=== PATIENT | male | born 1955 | race Caucasian/White ===

== ENCOUNTER 2019-05-27 06:00 | Outpatient (RCR) | payer MEDICARE, OTHER, SELFPAY | END 2019-06-26 00:01 | LOC: SPT 06:00 | PROVIDERS: Family Provider Internal Medicine; Visit Provider Internal Medicine | DX: R29.898 Other symptoms and signs involving the musculoskeletal system (principal); R26.89 Other abnormalities of gait and mobility | CPT/HCPCS: 97110 ×4; 97112; 97530 ×3 ==

== ENCOUNTER 2019-06-27 06:00 | Outpatient (RCR) | payer MEDICARE, OTHER, SELFPAY | END 2019-07-27 23:59 | disposition home or self-care (01) | LOC: SPT 06:00 | PROVIDERS: Family Provider Internal Medicine; PCP Internal Medicine; Visit Provider Internal Medicine | DX: R29.898 Other symptoms and signs involving the musculoskeletal system (principal); R26.89 Other abnormalities of gait and mobility | CPT/HCPCS: 97110; 97530 ==

== ENCOUNTER 2019-07-02 05:58 | Day surgery (SDC) | payer MEDICARE, OTHER, MEDICAID, SELFPAY ==
[2019-06-30 12:48] VITALS: BMI 39.5
--- NOTE | 2019-07-02 05:47 | XRR_ITS ---
PROCEDURE INFORMATION: Exam: XR Chest, 1 View Exam date and time: 07/02/2019 6:36 AM Age: 63 years old Clinical indication: Device placement; Other: Dialysis catheter removal; Prior surgery; Surgery type: Dialysis catheter, port TECHNIQUE: Imaging protocol: XR of the chest Views: 1 view. COMPARISON: CR Chest 1 [place] [id number] 11/14/2017 4:04 PM FINDINGS: Tubes, catheters and devices: Dialysis catheter via the left internal jugular approach with the tip in the region of the caval atrial junction. Lungs: Lungs are well aerated without a focal area of consolidation. Pleural space: Unremarkable. No pleural effusion. No pneumothorax. Heart/Mediastinum: The cardiac silhouette appears enlarged, some of which is magnification related to the AP projection. Bones/joints: Unremarkable. XR/XR chest 1V portable [id number] IMPRESSION: Lungs are well aerated without a focal area of consolidation.
--- NOTE | 2019-07-02 06:34 | P.HP_ITS ---
Providers/Chief Complaint Primary Care Provider: Asad Gao Chief Complaint: dialysis catheter History of Present Illness Bigg Rivera is a 63 year old male who presents today electively for planned split Navneet dialysis catheter removal which was placed in September 2017. He is currently being dialyzed through a successful right upper extremity fistula and this catheter is no longer required, therefore nephrology is requested that we remove the tunneled dialysis catheter. It is also note that he has some erythema and an abrasion over the pretibial region of his left lower extremity. We will direct care provider vancomycin as are surgical prophylaxis. He is scheduled to present back to dialysis clinic at 10 AM this morning. We will request a nephrology service recommended long-term antibiotic therapy for this. Review of Systems Eyes: Denies: change in vision ENMT: Denies: throat pain Card: Denies: chest pain Resp: Reports: shortness of breath (With exertion) GI: Denies: abdominal pain Skin/Breast: Reports: redness (Left lower extremity for the past week with what appears to be an abrasion) Neuro: Reports: numbness in extremities (Feet bilaterally); Denies: headache or weakness in extremities Medications/Allergies Home Medications Medication Instructions Recorded Confirmed Last Taken Type apixaban [Eliquis] 5 mg PO BID 06/30/19 07/02/19 2 Days Ago History ~06/30/19 aspirin [Aspir-81] 81 mg PO DAILY 06/30/19 07/02/19 2 Days Ago History ~06/30/19 atorvastatin 40 mg PO BEDTIME 06/30/19 07/02/19 1 Day Ago History ~07/01/19 diphenhydramine HCl [Benadryl] 50 mg PO BEDTIME 06/30/19 07/02/19 07/02/19 03:00 History docusate sodium [Colace] 100 mg PO BID 06/30/19 06/30/19 Unknown History duloxetine 40 mg PO DAILY 06/30/19 07/02/19 1 Day Ago History ~07/01/19 ergocalciferol (vitamin D2) 50,000 unit PO DIRECTED 06/30/19 06/30/19 Unknown History folic acid 1 mg PO DAILY 06/30/19 07/02/19 1 Day Ago History ~07/01/19 furosemide 06/30/19 Unknown History gabapentin 06/30/19 06/30/19 Unknown History hydralazine 100 mg PO BID 06/30/19 06/30/19 Unknown History insulin aspart U-100 [Novolog 5 unit SUBCUT TIDWM 06/30/19 06/30/19 Unknown History Flexpen U-100 Insulin] insulin glargine [Lantus Solostar 30 unit SUBCUT BID 06/30/19 06/30/19 Unknown History U-100 Insulin] isosorbide mononitrate 60 mg PO BEDTIME 06/30/19 06/30/19 Unknown History promethazine 25 mg PO Q6H 06/30/19 06/30/19 Unknown History sevelamer carbonate [Renvela] 2,400 mg PO QID 06/30/19 06/30/19 Unknown History temazepam 15 mg PO BEDTIME 06/30/19 06/30/19 Unknown History Allergies Allergy/AdvReac Type Severity Reaction Status Date / Time No Known Allergies Allergy Verified 06/30/19 10:16 PFSH PFSH: Statuses (acute, chronic, etc) shown below reflect problem list status as previously entered and may not be historically accurate Medical History (Updated 07/02/19 @ 06:41 by Geovanni Shields MD) Diabetes mellitus (Acute) Vital Signs Weight: Weight last 48 hrs Weight 260 lb Weight 258 lb Physical Exam Resp: COMMON NORMALS: normal respiratory effort AUSCULTATION: clear to auscultation bilaterally Cardio: COMMON NORMALS: regular rate, regular rhythm and S1 normal heart sound Extremity: GENERAL: Yes AV fistula (Left upper extremity with good bruit) LEFT LOWER EXTREMITY: Yes lower leg (Erythema and eschared abrasion pretibial region left lower extremity with magnus-eschar erythema) A&P Assessment and plan (1) Vascular dialysis catheter in place: Will plan for dialysis catheter removal today. I discussed the details, rationale, and risks with patient and . They wish to proceed. Status: Acute Code(s): Z99.2 - Dependence on renal dialysis (2) End stage renal disease on dialysis: Scheduled for resumption of hemodialysis at 10 AM at the local dialysis center. 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
--- NOTE | 2019-07-02 06:39 | ANES.PREANES ---
Pre-Anesthetic Assessment Pre-Anesthetic Assessment: Height/Weight: Height 1.73 m Weight 117.934 kg Proposed Procedure: Operation Date: 07/02/19 07:00 Proposed Procedures p Split Navneet Catheter Removal(Not Applicable) - Geovanni Shields MD Last intake: Intake Last Liquid Date 07/02/19 Last Liquid Time 03:00 Last Solid Date 07/01/19 Last Solid Time 18:00 Exam: Pre-Anes Outpt Exam: alert, oriented x 3, clear to auscultation bilaterally and regular rate & rhythm Airway: Submandibular: WNL Cervical ROM: WNL MP: 2 Dentition: Full History/ROS: No significant history except as noted Pulmonary: Pulmonary: None reported CV/HEM: CV/HEM: Afib and KS Metabolic: Metabolic: DM and Morbid obesity Anesthetic Plan: ASA status: III Anesthesia: Anesthesia Evaluation and MAC Risk of > 500 ml blood loss (7ml/kg in children): No PFSH Anesthesia PFSH: Medical History (Updated 07/02/19 @ 06:41 by Geovanni Shields MD) Diabetes mellitus (Acute) Data Anesthesia Cardiac Studies: No Data to Display
[2019-07-02 06:45] VITALS: BP 167/77; PULSE 85; RESP 18; TEMP 36.6; O2SAT 97
[2019-07-02] MEDS: sodium chloride 0.9% 1,000 ML 100 ML IV (07:00)
[2019-07-02] MEDS: vancomycin 1,000 MG in sodium chloride 0.9% 250 ML 250 MG IV (07:08)
[2019-07-02 07:25] LABS: Basophils # 0.1 10^3/uL (0.0-0.1); Basophils % 0.7 %; Eosinophils # 0.8 10^3/uL (0.0-0.8); Eosinophils % 5.6 %; Hematocrit 31.9 % (42.0-52.0); Lymphocytes # 1.1 10^3/uL (0.8-4.8); Lymphocytes % 8.1 %; Mean Corpuscular HGB Conc 31.3 g/dL (30.0-36.0); Mean Corpuscular Hemoglobin 33.3 pg (28.0-34.0); Mean Corpuscular Volume 106.3 fL (80-94); Mean Platelet Volume 10.3 fL (7.4-10.4); Monocytes # 0.8 10^3/uL (0.2-0.9); Monocytes % 5.7 %; Neutrophils # 10.7 10^3/uL (1.8-7.7); Neutrophils % 78.8 %; Nucleated Red Blood Cells % 0 %; Platelet Count 228 10^3/cmm (130-400); Red Cell Distribution Width 15.6 % (12.1-15.1); White Blood Count 13.5 10^3/uL (4.0-10.0)
[2019-07-02] MEDS: lidocaine 1% INJ 20 mL INJECTION (07:28)
[2019-07-02 07:29] LABS: INR 1.08 (0.8-1.2)
[2019-07-02 07:34] LABS: Anion Gap 24.9 (5-19); Calcium 9.4 mg/Dl (8.8-10.2); Carbon Dioxide 25 mmol/L (22-29); Chloride 91 mmol/L (98-107); Glomerular Filtration Rate 6.3 mL/min (90-130); Glucose 212 mg/dL (74-106); Potassium 4.9 mmol/L (3.5-5.1); Sodium 136 mmol/L (136-145)
--- NOTE | 2019-07-02 07:35 | P.OP_ITS ---
Operative Report Post-Operative Note: Date of procedure: 07/02/19 Preop Diagnosis: End-stage renal disease Post-op diagnosis: same Procedure Done: Tunneled left subclavian dialysis catheter removal Surgeon: Geovanni Shields Anesthesia: other (1% lidocaine local total of 8 cc) Estimated blood loss (mL): 5 IV fluids (mL): 100 Complications: None Condition: stable Disposition: same day Operative Report: Brief History: 63-year-old gentleman with end-stage renal disease on hemodialysis currently being dialyzed through successful left upper extremity AV fistula. His tunnel dialysis catheter is no longer required and nephrology is requested it be removed. Procedure: The patient was carefully positioned sterilely prepped and draped after induction of IV conscious sedation. 1% lidocaine was infiltrated at the exit point of the tunnelled dialysis catheter. Blunt dissection was then carried out utilizing hemostat to expose the Velcro cuff with subsequent excision of all fibrotic and scar tissue. Utilizing direct in-line traction with direct pressure held in the subclavicula r region at the insertion site, the catheter was removed intact without difficulty. Direct pressure was held in the subclavicular region for greater than 20 minutes with the patient in reverse Trendelenburg position to confirm hemostasis. Sterile pressure dressing was applied. Equal breath sounds bilaterally. They were awakened from IV conscious sedation without difficulty. They were transported to the Outpatient Surgery department in stable condition. 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
[2019-07-02 07:37] LABS: Blood Urea Nitrogen 99 mg/dL (8-23)
[2019-07-02 07:42] VITALS: BP 137/68; PULSE 85; RESP 18; O2SAT 98
[2019-07-02 08:14] VITALS: BP 169/73; PULSE 73; RESP 18; O2SAT 97
== END 2019-07-02 08:41 | disposition home or self-care (01) ==
PROVIDERS: Family Provider Internal Medicine; PCP Internal Medicine; Visit Provider Thoracic Surgery (Cardiothoracic Vascular Surgery)
PROC: (CPT 36815; principal; 2019-07-02 07:00)
DX: E11.22 Type 2 diabetes mellitus with diabetic chronic kidney disease (principal); Z99.2 Dependence on renal dialysis; N18.6 End stage renal disease; Z79.01 Long term (current) use of anticoagulants; Z79.82 Long term (current) use of aspirin; Z79.4 Long term (current) use of insulin; I48.91 Unspecified atrial fibrillation; I25.2 Old myocardial infarction; E66.01 Morbid (severe) obesity due to excess calories; Z68.39 Body mass index [BMI] 39.0-39.9, adult
CPT/HCPCS: 36590; 71045; 80048; 85025; 85610; 96365; J2001; J3370; J7030

== ENCOUNTER 2019-07-28 06:00 | Outpatient (RCR) | payer MEDICARE, OTHER, SELFPAY | END 2019-08-09 23:00 | disposition home or self-care (01) | LOC: SPT 06:00 | PROVIDERS: Family Provider Internal Medicine; PCP Internal Medicine; Visit Provider Internal Medicine | DX: R26.89 Other abnormalities of gait and mobility (principal); R29.898 Other symptoms and signs involving the musculoskeletal system | CPT/HCPCS: 97110; 97530 ==

== ENCOUNTER 2019-09-08 17:04 | Emergency (ER) | payer MEDICARE, OTHER, SELFPAY ==
[2019-09-08 17:05] VITALS: BP 175/96; PULSE 71; RESP 18; TEMP 36.3; O2SAT 98; BMI 39.8
--- NOTE | 2019-09-08 17:22 | ED_ITS ---
HPI - Extremity Problem General: Chief complaint: Extremity Injury, Lower Stated complaint: RIGHT KNEE SWOLLEN S/P FALL Time Seen by Provider: 09/08/19 17:18 History of Present Illness: HPI Narrative: Patient arrived via ambulance complaint of right knee pain. Patient tripped over a cord near his bed and fell directly on his right knee. Was able to stand up next to the bed the few minutes later his knee swelled up. Patient is on blood thinners patient has no complaints of any other problems MD Complaint: extremity swelling Onset (ago): minute(s) Pain Consistency: constant Location: right and knee Severity scale (1-10): 4 Quality: aching Radiation: none Relieving factors: immobilization Exacerbating factors: range of motion Associated symptoms: Reports no associated symptoms; Deny chest pain, fever(s) or rash Review of Systems Const: Denies: fever, chills or body aches Eyes: Denies: change in vision or blurry vision ENMT: Denies: throat pain or nasal congestion Card: Denies: chest pain or shortness of breath on exertion Resp: Denies: shortness of breath, productive cough or non-productive cough GI: Denies: abdominal pain, nausea or vomiting : Denies: difficulty urinating Musc: Reports: extremity pain and joint swelling (Right knee) Skin/Breast: Denies: rash Neuro: Denies: headache Psych: Denies: anxiety or depression Lázaro/Lymph: Denies: easy bruising PFSH ED 2 PFSH: Medical History (Updated 08/11/19 @ 12:05 by Markel Gold DPM) Anemia Atrial fibrillation COPD (chronic obstructive pulmonary disease) Coronary artery disease CVA (cerebral vascular accident) Diabetes mellitus Dyslipidemia Gout Hyperphosphatemia Hypertension Neuropathy Obstructive sleep apnea Pure hypercholesterolemia PVD (peripheral vascular disease) Surgical History (Updated 08/11/19 @ 12:01 by Markel Gold DPM) H/O hernia repair Ventral History of appendectomy Hx of cholecystectomy S/P removal of parathyroid gland Social History Smoking and tobacco status: never smoked Alcohol intake: never Physical Exam Const: COMMON NORMALS: no apparent distress, average body habitus and oriented x3 HENMT: COMMON NORMALS: normocephalic HEAD & SCALP: normal to inspection and normocephalic FACE & SINUS: normal facial exam Eye: COMMON NORMALS: conjunctivae normal GENERAL EYE: normal appearance of both eyes CONJUNCTIVA: Yes conjunctivae normal Neck/C-Spine: COMMON NORMALS: no JVD Chest: COMMONS NORMALS: inspection of chest normal Resp: COMMON NORMALS: normal respiratory effort and clear to auscultation bilaterally AUSCULTATION: clear to auscultation bilaterally Cardio: COMMON NORMALS: no JVD, regular rate and regular rhythm RATE: regular rate RHYTHM: regular rhythm GI: COMMON NORMALS: normal to inspection, nondistended, normoactive bowel sounds Extremity: COMMON NORMALS: normal to inspection RIGHT LOWER EXTREMITY: Yes knee joint (Large amount of swelling and bruising to the anterior aspect of the right knee has range of motion but does have pain with that neurovascular intact) Neuro: COMMON NORMALS: oriented x3 Course Vital Signs: Vital signs: Vital Signs Temperature 97.3 F L 09/08/19 17:05 Pulse Rate 71 09/08/19 17:05 Respiratory Rate 18 09/08/19 17:05 Blood Pressure 175/96 09/08/19 17:05 Pulse Oximetry 98 09/08/19 17:05 Discharge Plan Discharge Prescriptions: No Action vancomycin in 0.9 % sodium chl 1 gram/200 mL piggyback 1 gm IVP Q24H RF: 0 cephalexin 500 mg capsule 500 mg PO BID RF: 0 duloxetine 20 mg capsule,delayed release(DR/EC) 20 mg PO BID 30 Days Qty: 60 RF: 6 gabapentin 300 mg capsule 300 mg PO DAILY 90 Days Qty: 90 RF: 3 Lantus Solostar U-100 Insulin 100 unit/mL (3 mL) insulin pen 30 unit SUBCUT BID Qty: 3 RF: 0 Eliquis 5 mg tablet 5 mg PO BID Qty: 60 RF: 3 atorvastatin 40 mg tablet 40 mg PO BEDTIME RF: 0 aspirin [Aspir-81] 81 mg Tablet,Delayed Release (Dr/Ec) 81 mg PO DAILY RF: 0 isosorbide mononitrate 60 mg tablet extended release 24 hr 60 mg PO BEDTIME RF: 0 temazepam 15 mg capsule 15 mg PO BEDTIME RF: 0 furosemide 80 mg tablet RF: 0 hydralazine 100 mg tablet 100 mg PO BID RF: 0 diphenhydramine HCl [Benadryl] 25 mg Capsule 50 mg PO BEDTIME RF: 0 promethazine 25 mg tablet 25 mg PO Q6H RF: 0 Colace 100 mg Capsule 100 mg PO BID RF: 0 folic acid 1 mg tablet 1 mg PO DAILY RF: 0 ergocalciferol (vitamin D2) 50,000 unit Capsule 50,000 unit PO DIRECTED RF: 0 Novolog Flexpen U-100 Insulin 100 unit/mL (3 mL) insulin pen 5 unit SUBCUT TIDWM RF: 0 Renvela 800 mg tablet 2,400 mg PO QID RF: 0 Coding Level of Care Code ED 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
--- NOTE | 2019-09-08 17:22 | XRR_ITS ---
PROCEDURE INFORMATION: Exam: XR Right Knee Exam date and time: 09/08/2019 5:22 PM Age: 63 years old Clinical indication: Injury or trauma; Fall; Initial encounter; Blunt trauma; Knee; Right TECHNIQUE: Imaging protocol: XR Right knee. Views: 3 views. COMPARISON: No relevant prior studies available. FINDINGS: Bones/joints: There is osteopenia. There is mild chondrocalcinosis compatible with calcium pyrophosphate deposition disease. There is a small knee joint effusion. There are diffuse moderate degenerative changes in the knee. No acute fracture. Soft tissues: There is diffuse subcutaneous edema. There is abundant edema in the subcutaneous fat superficial to the patella and anterior to the knee compatible with contusion/hematoma versus prepatellar bursitis. XR/XR knee RT 3V* [id number] IMPRESSION: 1. There is abundant soft tissue edema. 2. No acute bony abnormality. Degenerative changes are noted.
[2019-09-08 18:22] VITALS: BP 175/94; PULSE 65; RESP 17; O2SAT 98
== END 2019-09-08 18:26 | disposition home or self-care (01) ==
PROVIDERS: Emergency Provider Nurse Practitioner Family; Family Provider Internal Medicine; PCP Internal Medicine
DX: S80.01XA Contusion of right knee, initial encounter (principal); M25.461 Effusion, right knee; I48.91 Unspecified atrial fibrillation; J44.9 Chronic obstructive pulmonary disease, unspecified; I25.10 Atherosclerotic heart disease of native coronary artery without angina pectoris; E11.40 Type 2 diabetes mellitus with diabetic neuropathy, unspecified; E11.51 Type 2 diabetes mellitus with diabetic peripheral angiopathy without gangrene; E78.00 Pure hypercholesterolemia, unspecified; Z79.4 Long term (current) use of insulin; Z79.01 Long term (current) use of anticoagulants; Z79.82 Long term (current) use of aspirin; Z86.73 Personal history of transient ischemic attack (TIA), and cerebral infarction without residual deficits; W01.0XXA Fall on same level from slipping, tripping and stumbling without subsequent striking against object, initial encounter
CPT/HCPCS: 12345; 73562; 99281; 99283

== ENCOUNTER → 2020-05-23 10:30 | Outpatient (BNVA) | payer MEDICARE, OTHER, SELFPAY | PROVIDERS: Family Provider Internal Medicine; PCP Internal Medicine; Visit Provider Internal Medicine | DX: Z20.828 Contact with and (suspected) exposure to other viral communicable diseases (principal); Z11.59 Encounter for screening for other viral diseases | CPT/HCPCS: 87426 ==

== ENCOUNTER 2020-06-15 14:48 | Emergency (ER) | payer MEDICARE, OTHER, SELFPAY ==
[2020-06-15 14:56] VITALS: BP 157/61; PULSE 61; RESP 20; TEMP 36.4; O2SAT 95; BMI 38.0
[2020-06-15 15:11] VITALS: BP 138/54; PULSE 56; RESP 20; O2SAT 94
[2020-06-15 15:14] LABS: Glucose Point of Care 274 mg/dL (70-110)
--- NOTE | 2020-06-15 15:14 | XRR_ITS ---
PROCEDURE INFORMATION: Exam: XR Chest, 1 View Exam date and time: 06/15/2020 3:17 PM Age: 64 years old Clinical indication: Shortness of breath; Additional info: SOB TECHNIQUE: Imaging protocol: XR of the chest Views: 1 view. COMPARISON: CR XR chest 1V portable [id number] 07/02/2019 6:28 AM FINDINGS: Lungs: Unremarkable. No consolidation. Pleural space: Unremarkable. No pleural effusion. No pneumothorax. Heart/Mediastinum: Unremarkable. No cardiomegaly. Bones/joints: Unremarkable. XR/XR chest 1V portable [id number] IMPRESSION: No acute findings.
--- NOTE | 2020-06-15 15:49 | W.ED.AMS ---
HPI - Altered Mental Status General: Chief Complaint: Altered Mental Status Stated Complaint: AMS DURING DIALYSIS Time Seen by Provider: 06/15/20 14:52 Source: patient Mode of arrival: EMS Limitations: no limitations History of Present Illness: HPI narrative: The patient is a 64-year-old male with end-stage renal disease on hemodialysis Wednesdays and Fridays. He says that occasionally during dialysis he gets episodes of altered mental status, hypoglycemia and difficulty breathing. Because of these the dialysis center wants him checked out before his next dialysis session tomorrow. The patient has no complaints today. He has baseline shortness of breath and that is unchanged. He is essentially here for medical clearance for dialysis Review of Systems General: Reports: 10 or more systems reviewed and unremarkable except in HPI and below Const: Denies: fever(s), chills or body aches Eyes: Denies: change in vision or blurry vision ENMT: Denies: throat pain, enlarged tonsils, odynophagia, hoarseness, mouth pain or swelling of lips/tongue Card: Denies: palpitations, irregular heart rhythm, edema or swelling of feet/ankles Resp: Denies: dyspnea, productive cough or non-productive cough GI: Denies: abdominal pain, nausea or vomiting : Denies: flank pain, dysuria, urinary frequency, urinary urgency or urinary hesitancy Musc: Denies: neck pain, back pain or extremity swelling Skin/Breast: Denies: rash, pruritus or erythema Neuro: Denies: headache(s), numbness in extremities or weakness in extremities Endo: Denies: polyuria, polydipsia or tired all the time PFSH ED PFSH: Medical History (Updated 06/15/20 @ 16:24 by Jose Manuel Vo MD, [facility] [place]) Anemia Atrial fibrillation COPD (chronic obstructive pulmonary disease) Coronary artery disease CVA (cerebral vascular accident) Diabetes mellitus Dyslipidemia Gout Hyperphosphatemia Hypertension Neuropathy Obstructive sleep apnea Pure hypercholesterolemia PVD (peripheral vascular disease) Surgical History (Reviewed 06/15/20 @ 15:55 by Jose Manuel Vo MD, [facility] [place]) H/O hernia repair Ventral History of appendectomy Hx of cholecystectomy S/P removal of parathyroid gland Family History (Reviewed 06/15/20 @ 15:55 by Jose Manuel Vo MD, [facility] [place]) Father No problems noted. Other Cancer Diabetes Denies family history of CAD (coronary artery disease) Clotting disorder Dementia Hyperlipidemia Psychiatric illness Chronic kidney disease (CKD) Suicide Anesthesia complication Bleeding disorder Family history of premature coronary artery disease Lung disease Hypertension Stroke Social History (Reviewed 06/15/20 @ 15:55 by Jose Manuel Vo MD, [facility] [place]) Smoking and tobacco status: never smoked Alcohol intake: never History of recent travel: No Physical Exam Const: COMMON NORMALS: no acute distress, average body habitus, patient oriented x3, no limitations, healthy appearing, alert and well nourished HENMT: COMMON NORMALS: normocephalic, atraumatic and moist oral mucous membranes HEAD & SCALP: normocephalic and atraumatic Neck/C-Spine: COMMON NORMALS: no meningeal signs and no JVD Resp: COMMON NORMALS: normal respiratory effort, No retractions, No use of accessory muscles, clear to auscultation bilaterally and percussion normal AUSCULTATION: clear to auscultation bilaterally PERCUSSION: percussion normal Cardio: COMMON NORMALS: no JVD, regular rate, regular rhythm, S1 normal heart sound present, S2 normal heart sound present, No gallops present (Cardio), No clicks present (Cardio), No murmurs present (Cardio), No rub (Cardio) and Peripheral pulses 2+ throughout RATE: regular rate RHYTHM: regular rhythm HEART SOUNDS: S1 normal heart sound present and S2 normal heart sound present PERIPHERAL PULSES: Peripheral pulses 2+ throughout GI: COMMON NORMALS: Normal to inspection, nondistended, normoactive bowel sounds present, Soft to palpation, non-tender, No hepatosplenomegaly present, no masses and no bruits PALPATION: Yes Soft to palpation and Yes No hepatosplenomegaly present Extremity: COMMON NORMALS: normal to inspection, full ROM, capillary refill normal and no calf tenderness GENERAL: Yes edema Neuro: COMMON NORMALS: patient oriented x3 SENSORIUM/ORIENTATION: Yes alert MENINGEAL SIGNS: Yes no meningeal signs Skin: COMMON NORMALS: no rashes or lesions noted, no wounds, turgor normal, no jaundice, no petechiae and no mottling GENERAL SKIN EXAM: no rashes or lesions noted and turgor normal Course Reevaluation(s): Reevaluation #1: Discussed his lab and imaging findings with him. Negative for acute findings. Creatinine is elevated but unremarkable for him, he is due to have dialysis tomorrow. We will discharge him home with no new orders and he is good to have dialysis tomorrow. He voiced understanding and is in agreement with the plan. Time: 16:22 Vital Signs: Vital signs: Vital Signs Temperature 98.5 F 06/15/20 16:32 Pulse Rate 60 06/15/20 16:32 Respiratory Rate 18 06/15/20 16:32 Blood Pressure 183/53 06/15/20 16:32 Pulse Oximetry 96 06/15/20 16:32 MDM - Altered Mental Status MDM Narrative: Medical decision making narrative: 64-year-old male with end-stage renal disease on hemodialysis Wednesdays and Fridays has had a few episodes of altered mental status, difficulty breathing, and hypoglycemia during his dialysis sessions. His next dialysis session is tomorrow and the dialysis staff wanted the patient checked out and cleared prior to dialysis tomorrow. The patient had no symptoms and evaluation was unremarkable in the emergency department. He is discharged home and he can have dialysis tomorrow. Medical Records: Attestation: I reviewed the patient's medical records. Lab Data: Attestation: I reviewed the patient's lab results. Labs: Lab Results 06/15/20 06/15/20 06/15/20 Range/Units 15:09 15:36 15:36 WBC 10.7 H (4.0-10.0) 10^3/ uL RBC 3.26 L (4.1-5.3) 10^6/u L Hgb 10.1 L (11.7-16.6) g/dL Hct 33.3 L (42.0-52.0) % MCV 102.1 H (80-94) fL MCH 31.0 (28.0-34.0) pg MCHC 30.3 (30.0-36.0) g/dL RDW 14.8 (12.1-15.1) % Plt Count 257 (130-400) 10^3/c mm MPV 10.8 H (7.4-10.4) fL Neut % (Auto) 75.8 % Lymph % (Auto) 11.6 % [place] % (Auto) 7.7 % Eos % (Auto) 3.7 % Baso % (Auto) 0.5 % Neut # (Auto) 8.12 H (1.8-7.7) 10^3/u L Lymph # (Auto) 1.3 (0.8-4.8) 10^3/u L [place] # (Auto) 0.8 (0.2-0.9) 10^3/u L Eos # (Auto) 0.4 (0.0-0.8) 10^3/u L Baso # (Auto) 0.1 (0.0-0.1) 10^3/u L Nucleated RBC % (a uto) 0 % Nucleated RBCs # 0.0 /100WBC Sodium 136 (136-145) mmol/L Potassium 4.3 (3.5-5.1) mmol/L Chloride 91 L (98-107) mmol/L Carbon Dioxide 31 H (22-29) mmol/L Anion Gap 18.3 (5-19) BUN 40 H (8-23) mg/dL Creatinine 6.6 H* (0.7-1.2) mg/dL GFR Calculation 8.5 L (90-130) mL/min Glucose 230 H (65-115) mg/dL POC Glucose 274 H (70-110) mg/dL Calculated Osmolal ity 299 H (285-295) mOsm/k g Calcium 8.2 L (8.5-10.5) mg/dL Total Bilirubin 0.2 (0.15-1.2) mg/dL AST 11 (0-40) U/L ALT 11 (0-41) U/L Alkaline Phosphata se 174 H (40-130) IU/L C-Reactive Protein 16.1 H (0.0-4.9) mg/L Total Protein 7.2 (6.6-8.7) g/dL Albumin 3.7 (3.5-5.2) g/dL Globulin 3.5 (1.3-4.6) g/dL Imaging Data^: CXR: Attestation: I personally reviewed and interpreted this imaging study as follows: Radiologist's impression: [address] [address] XRay Report Signed Patient: Bigg Rivera Jefferson #: [id number] : [id number]#:[id number] Age/Sex: 64 / MADM Date: 06/15/20 Loc: ERRoom/Bed: Attending Dr: Ordering Provider/Ordering MD: Jose Manuel Vo MD, [facility] [place] Date of Service: 06/15/20 Procedure(s): XR chest 1V portable [id number] Accession Number(s): [id number] Report Number: [id number] PROCEDURE INFORMATION: Exam: XR Chest, 1 View Exam date and time: 06/15/2020 3:17 PM Age: 64 years old Clinical indication: Shortness of breath; Additional info: SOB TECHNIQUE: Imaging protocol: XR of the chest Views: 1 view. COMPARISON: CR XR chest 1V portable [id number] 07/02/2019 6:28 AM FINDINGS: Lungs: Unremarkable. No consolidation. Pleural space: Unremarkable. No pleural effusion. No pneumothorax. Heart/Mediastinum: Unremarkable. No cardiomegaly. Bones/joints: Unremarkable. XR/XR chest 1V portable [id number] IMPRESSION: No acute findings. Dictated By:Leo Cardoza Signed By:Tangela Cardoza Date/Time:06/15/201613 DD/ 12 Discharge Plan Discharge Patient Disposition: Home Clinical Impression: ESRD (end stage renal disease) Condition: Stable Prescriptions: Continued amoxicillin-pot clavulanate [Augmentin] 875-125 mg tablet 1 tab PO BID Qty: 14 RF: 0 Novolog Flexpen U-100 Insulin 100 unit/mL (3 mL) insulin pen 5 unit SUBCUT TIDWMEAL Qty: 15 RF: 3 gabapentin 300 mg capsule 300 mg PO DAILY 90 Days Qty: 90 RF: 3 promethazine 25 mg tablet 25 mg PO Q6H Qty: 30 RF: 3 Lantus Solostar U-100 Insulin 100 unit/mL (3 mL) insulin pen See Rx Instructions .ROUTE .COMPLEX Qty: 3 RF: 0 Eliquis 5 mg tablet 5 mg PO BID Qty: 60 RF: 3 duloxetine 20 mg capsule,delayed release(DR/EC) 20 mg PO BID 30 Days Qty: 60 RF: 6 temazepam 15 mg capsule 15 mg PO .AT BEDTIME Qty: 30 RF: 3 (DME) pen needle, diabetic [TechLITE Pen Needle] 31 gauge x 5/16 needle See Rx Instructions .ROUTE .MEDSUPPLY Qty: 200 RF: 11 (DME) pen needle, diabetic [TechLITE Pen Needle] 31 gauge x 5/16 needle See Rx Instructions .ROUTE .MEDSUPPLY Qty: 100 RF: 11 atorvastatin 40 mg tablet 40 mg PO BEDTIME RF: 0 aspirin [Aspir-81] 81 mg Tablet,Delayed Release (Dr/Ec) 81 mg PO DAILY RF: 0 isosorbide mononitrate 60 mg tablet extended release 24 hr 60 mg PO BEDTIME RF: 0 furosemide 80 mg tablet RF: 0 hydralazine 100 mg tablet 100 mg PO BID RF: 0 diphenhydramine HCl [Benadryl] 25 mg Capsule 50 mg PO BEDTIME RF: 0 Colace 100 mg Capsule 100 mg PO BID RF: 0 folic acid 1 mg tablet 1 mg PO DAILY RF: 0 ergocalciferol (vitamin D2) 50,000 unit Capsule 50,000 unit PO DIRECTED RF: 0 Renvela 800 mg tablet 2,400 mg PO QID RF: 0 Discharge Orders: Discharge ED (Routine); Ordered 06/15/20 Ordered By: Jose Manuel Vo Referrals: Ede Gao MD [Primary Care Provider] - 1-3 days Discharge Diet: Usual diet Discharge Activity: Resume usual activity Patient Instructions: Dialysis Diet (GEN), End-Stage Kidney Disease (ED) Activity Restrictions/Additional Instructions: Return for any new or worsening symptoms. Follow-up with your primary care provider within 3 days. Go for dialysis as scheduled tomorrow. Coding Level of Care Code ED Rf Engineer for Elizabeth Fwd Exam Comprehensive
[2020-06-15 15:55] LABS: Basophils # 0.1 10^3/uL (0.0-0.1); Basophils % 0.5 %; Eosinophils # 0.4 10^3/uL (0.0-0.8); Eosinophils % 3.7 %; Hematocrit 33.3 % (42.0-52.0); Hemoglobin 10.1 g/dL (11.7-16.6); Lymphocytes # 1.3 10^3/uL (0.8-4.8); Lymphocytes % 11.6 %; Mean Corpuscular HGB Conc 30.3 g/dL (30.0-36.0); Mean Corpuscular Volume 102.1 fL (80-94); Mean Platelet Volume 10.8 fL (7.4-10.4); Monocytes # 0.8 10^3/uL (0.2-0.9); Monocytes % 7.7 %; Neutrophils # 8.12 10^3/uL (1.8-7.7); Neutrophils % 75.8 %; Nucleated Red Blood Cells % 0 %; Platelet Count 257 10^3/cmm (130-400); Red Blood Count 3.26 10^6/uL (4.1-5.3); Red Cell Distribution Width 14.8 % (12.1-15.1); White Blood Count 10.7 10^3/uL (4.0-10.0)
[2020-06-15 15:57] VITALS: BP 138/54; PULSE 58; RESP 20; O2SAT 93
[2020-06-15 16:16] LABS: Alanine Aminotransferase 11 U/L (0-41); Albumin Level 3.7 g/dL (3.5-5.2); Alkaline Phosphatase 174 IU/L (40-130); Anion Gap 18.3 (5-19); Aspartate Amino Transferase 11 U/L (0-40); Blood Urea Nitrogen 40 mg/dL (8-23); C Reactive Protein 16.1 mg/L (0.0-4.9); Calcium 8.2 mg/dL (8.5-10.5); Carbon Dioxide 31 mmol/L (22-29); Chloride 91 mmol/L (98-107); Globulin 3.5 g/dL (1.3-4.6); Glomerular Filtration Rate 8.5 mL/min (90-130); Glucose 230 mg/dL (65-115); Osmolality Calculated 299 mOsm/kg (285-295); Potassium 4.3 mmol/L (3.5-5.1); Sodium 136 mmol/L (136-145); Total Bilirubin 0.2 mg/dL (0.15-1.2); Total Protein 7.2 g/dL (6.6-8.7)
[2020-06-15 16:32] VITALS: BP 183/53; PULSE 60; RESP 18; TEMP 36.9; O2SAT 96
== END 2020-06-15 16:34 | disposition home or self-care (01) ==
PROVIDERS: Emergency Provider Family Medicine; PCP Internal Medicine
DX: E11.22 Type 2 diabetes mellitus with diabetic chronic kidney disease (principal); I12.0 Hypertensive chronic kidney disease with stage 5 chronic kidney disease or end stage renal disease; N18.6 End stage renal disease; Z79.01 Long term (current) use of anticoagulants; Z79.82 Long term (current) use of aspirin; Z79.4 Long term (current) use of insulin; I48.91 Unspecified atrial fibrillation; J44.9 Chronic obstructive pulmonary disease, unspecified; I25.10 Atherosclerotic heart disease of native coronary artery without angina pectoris; Z86.73 Personal history of transient ischemic attack (TIA), and cerebral infarction without residual deficits; E78.5 Hyperlipidemia, unspecified; E11.40 Type 2 diabetes mellitus with diabetic neuropathy, unspecified
CPT/HCPCS: 12345; 36416; 71045; 80053; 82962; 85025; 86140; 99282; 99283

== ENCOUNTER 2020-09-19 13:30 | Outpatient (CLI) | payer MEDICARE, OTHER, SELFPAY | END 2020-09-19 13:31 | disposition home or self-care (01) | LOC: SPT 06-29 11:45 | PROVIDERS: PCP Internal Medicine; Visit Provider Podiatrist Foot & Ankle Surgery | DX: E11.8 Type 2 diabetes mellitus with unspecified complications (principal) | CPT/HCPCS: 97760; L4361 ==

== ENCOUNTER → 2020-09-19 15:00 | Outpatient (BNVA) | payer MEDICARE, OTHER, SELFPAY | PROVIDERS: PCP Internal Medicine; Visit Provider Podiatrist Foot & Ankle Surgery | DX: S90.31XA Contusion of right foot, initial encounter (principal); X58.XXXA Exposure to other specified factors, initial encounter; E11.42 Type 2 diabetes mellitus with diabetic polyneuropathy; E11.8 Type 2 diabetes mellitus with unspecified complications | CPT/HCPCS: 73610; 73620; 73630; 97760; L4361 ==

== ENCOUNTER 2020-11-06 12:16 | Outpatient (CLI) | payer MEDICARE, OTHER, SELFPAY ==
[2020-11-06 13:59] LABS: Ionized Calcium 1.1 mmol/L (1.1-1.4)
[2020-11-06 14:01] LABS: Basophils # 0.1 10^3/uL (0.0-0.1); Basophils % 0.6 %; Eosinophils # 0.5 10^3/uL (0.0-0.8); Eosinophils % 3.8 %; Hematocrit 38.2 % (42.0-52.0); Hemoglobin 11.6 g/dL (11.7-16.6); Lymphocytes # 1.7 10^3/uL (0.8-4.8); Lymphocytes % 13.7 %; Mean Corpuscular HGB Conc 30.4 g/dL (30.0-36.0); Mean Corpuscular Hemoglobin 30.4 pg (28.0-34.0); Mean Corpuscular Volume 100.3 fL (80-94); Mean Platelet Volume 10.2 fL (7.4-10.4); Monocytes # 0.9 10^3/uL (0.2-0.9); Monocytes % 7.2 %; Neutrophils # 9.27 10^3/uL (1.8-7.7); Neutrophils % 74.1 %; Nucleated Red Blood Cells % 0 %; Platelet Count 246 10^3/cmm (130-400); Red Blood Count 3.81 10^6/uL (4.1-5.3); Red Cell Distribution Width 15.5 % (12.1-15.1); White Blood Count 12.5 10^3/uL (4.0-10.0)
[2020-11-06 15:00] LABS: Alanine Aminotransferase 12 U/L (0-41); Albumin Level 3.8 g/dL (3.5-5.2); Alkaline Phosphatase 164 IU/L (40-130); Anion Gap 29.7 (5-19); Aspartate Amino Transferase 12 U/L (0-40); Blood Urea Nitrogen 43 mg/dL (8-23); Calcium 8.5 mg/dL (8.5-10.5); Carbon Dioxide 22 mmol/L (22-29); Chloride 90 mmol/L (98-107); Glomerular Filtration Rate 9.8 mL/min (90-130); Glucose 197 mg/dL (65-115); Osmolality Calculated 300 mOsm/kg (285-295); Phosphorus 4.8 mg/dL (2.5-4.5); Potassium 4.7 mmol/L (3.5-5.1); Sodium 137 mmol/L (136-145); Total Bilirubin 0.2 mg/dL (0.15-1.2); Total Protein 7.8 g/dL (6.6-8.7)
[2020-11-11 22:38] LABS: PTH Related Peptide (Protein) 49 pg/mL (14-27)
== END 2020-11-06 12:17 | disposition home or self-care (01) ==
PROVIDERS: PCP Internal Medicine; Visit Provider Dermatology
DX: E83.59 Other disorders of calcium metabolism (principal)
CPT/HCPCS: 36415; 80053; 82330; 82542; 84100; 85025

== ENCOUNTER 2020-11-20 09:48 | Outpatient (CLI) | payer MEDICARE, OTHER, SELFPAY | END 2020-11-20 09:49 | disposition home or self-care (01) | PROVIDERS: PCP Internal Medicine; Visit Provider Nurse Practitioner Family | DX: E11.621 Type 2 diabetes mellitus with foot ulcer (principal); L97.512 Non-pressure chronic ulcer of other part of right foot with fat layer exposed; E11.622 Type 2 diabetes mellitus with other skin ulcer; L97.822 Non-pressure chronic ulcer of other part of left lower leg with fat layer exposed | CPT/HCPCS: 11042; G0463 ==

== ENCOUNTER 2020-11-25 10:51 | Outpatient (CLI) | payer MEDICARE, OTHER, SELFPAY | END 2020-11-25 10:52 | disposition home or self-care (01) | LOC: WOUND 10:53 | PROVIDERS: PCP Internal Medicine; Visit Provider Thoracic Surgery (Cardiothoracic Vascular Surgery) | DX: E11.621 Type 2 diabetes mellitus with foot ulcer (principal); L97.512 Non-pressure chronic ulcer of other part of right foot with fat layer exposed; E11.622 Type 2 diabetes mellitus with other skin ulcer; L97.822 Non-pressure chronic ulcer of other part of left lower leg with fat layer exposed | CPT/HCPCS: 11042 ==

== ENCOUNTER 2020-12-02 09:51 | Outpatient (CLI) | payer MEDICARE, OTHER, SELFPAY | END 2020-12-02 09:52 | disposition home or self-care (01) | LOC: WOUND 09:52 | PROVIDERS: PCP Internal Medicine; Visit Provider Thoracic Surgery (Cardiothoracic Vascular Surgery) | DX: E11.621 Type 2 diabetes mellitus with foot ulcer (principal); L97.512 Non-pressure chronic ulcer of other part of right foot with fat layer exposed | CPT/HCPCS: 11042 ==

== ENCOUNTER 2020-12-09 08:42 | Outpatient (CLI) | payer MEDICARE, OTHER, SELFPAY | END 2020-12-09 08:43 | disposition home or self-care (01) | LOC: WOUND 08:44 | PROVIDERS: PCP Internal Medicine; Visit Provider Thoracic Surgery (Cardiothoracic Vascular Surgery) | DX: E11.621 Type 2 diabetes mellitus with foot ulcer (principal); L97.512 Non-pressure chronic ulcer of other part of right foot with fat layer exposed | CPT/HCPCS: 11042 ==

== ENCOUNTER 2020-12-16 08:51 | Outpatient (CLI) | payer MEDICARE, OTHER, SELFPAY | END 2020-12-16 08:52 | disposition home or self-care (01) | LOC: WOUND 08:53 | PROVIDERS: PCP Internal Medicine; Visit Provider Thoracic Surgery (Cardiothoracic Vascular Surgery) | DX: L97.519 Non-pressure chronic ulcer of other part of right foot with unspecified severity (principal) | CPT/HCPCS: 99212 ==

== ENCOUNTER 2020-12-23 08:40 | Outpatient (CLI) | payer MEDICARE, OTHER, SELFPAY | END 2020-12-23 08:41 | disposition home or self-care (01) | LOC: WOUND 08:41 | PROVIDERS: PCP Internal Medicine; Visit Provider Thoracic Surgery (Cardiothoracic Vascular Surgery) | DX: Z09 Encounter for follow-up examination after completed treatment for conditions other than malignant neoplasm (principal) | CPT/HCPCS: 99212 ==

== ENCOUNTER 2021-07-28 10:29 | Outpatient (CLI) | payer MEDICARE, SELFPAY ==
--- NOTE | 2021-07-28 10:47 | XR_ITS ---
WS: [id number] XR chest 2V insp/exp [id number] REASON FOR EXAM: Dyspnea on exertion, COPD FINDINGS: The chest is unchanged compared to 06/15/2020. There is moderate tortuosity of the thoracic aorta and calcification of the aortic arch without aneur ysmal dilatation. Calcified granulomatous disease in both hemithoraces. Normal heart size. No acute pulmonary parenchymal or pleural abnormality is identified. XR/XR chest 2V insp/exp [id number] IMPRESSION: No acute chest abnormality.
[2021-07-28 11:54] LABS: Basophils # 0.1 10^3/uL (0.0-0.1); Basophils % 0.6 %; Eosinophils # 0.8 10^3/uL (0.0-0.8); Eosinophils % 5.4 %; Hematocrit 43.7 % (42.0-52.0); Hemoglobin 13.9 g/dL (11.7-16.6); Lymphocytes # 1.3 10^3/uL (0.8-4.8); Lymphocytes % 9.2 %; Mean Corpuscular HGB Conc 31.8 g/dL (30.0-36.0); Mean Corpuscular Hemoglobin 31.8 pg (28.0-34.0); Mean Platelet Volume 9.8 fL (7.4-10.4); Monocytes # 0.9 10^3/uL (0.2-0.9); Monocytes % 6.3 %; Neutrophils % 77.2 %; Nucleated Red Blood Cells % 0 %; Platelet Count 225 10^3/cmm (130-400); Red Blood Count 4.37 10^6/uL (4.1-5.3); Red Cell Distribution Width 15.5 % (12.1-15.1); White Blood Count 13.9 10^3/uL (4.0-10.0)
[2021-07-28 12:28] LABS: Estmated Average Glucose 157; Hemoglobin A1C 7.1 % (4.0-6.0)
[2021-07-28 12:31] LABS: Alanine Aminotransferase 15 U/L (0-41); Albumin Level 3.8 g/dL (3.5-5.2); Alkaline Phosphatase 324 IU/L (40-130); Anion Gap 23.3 (5-19); Aspartate Amino Transferase 14 U/L (0-40); Blood Urea Nitrogen 55 mg/dL (8-23); Calcium 8.7 mg/dL (8.5-10.5); Carbon Dioxide 22 mmol/L (22-29); Chloride 92 mmol/L (98-107); Chol HDL Ratio 4.29 mg/dL (1.0-5.00); Cholesterol 146 mg/dL (0-200); Globulin 3.5 g/dL (1.3-4.6); Glomerular Filtration Rate 7.2 mL/min (90-130); Glucose 164 mg/dL (65-115); HDL Cholesterol 34 mg/dL (60-100); Iron 49 ug/dL (59-158); Osmolality Calculated 293 mOsm/kg (285-295); Potassium 5.3 mmol/L (3.5-5.1); Sodium 132 mmol/L (136-145); Thyroid Stimulating Hormone 1.41 uIU/mL (0.27-4.20); Total Bilirubin 0.2 mg/dL (0.15-1.2); Total Protein 7.3 g/dL (6.6-8.7); Triglycerides 425 mg/dL (0-150)
[2021-07-28 13:02] LABS: Ferritin 1105 ng/mL (30-400)
[2021-07-28 14:00] LABS: Free T4 Free Thyroxine 0.66 ng/dL (0.82-1.77); LDL Cholesterol Direct 56 mg/dL (0-100); T3 Free 2.1 PG/ML (2.0-4.4)
== END 2021-07-28 10:30 | disposition home or self-care (01) ==
PROVIDERS: PCP Internal Medicine; Visit Provider Family Medicine
DX: R06.00 Dyspnea, unspecified (principal); G47.33 Obstructive sleep apnea (adult) (pediatric); J44.9 Chronic obstructive pulmonary disease, unspecified; D64.9 Anemia, unspecified; E11.42 Type 2 diabetes mellitus with diabetic polyneuropathy; N18.6 End stage renal disease; Z99.2 Dependence on renal dialysis
CPT/HCPCS: 71046; 80053; 80061; 82728; 83036; 83540; 83721; 84439; 84443; 84481; 85025

== ENCOUNTER 2021-08-14 10:13 | Inpatient (IN) | payer MEDICARE, SELFPAY ==
[2021-08-14] VITALS (11 sets, daily range): BP systolic 95–140; BP diastolic 45–80; PULSE 47–58; RESP 12–20; TEMP 36.4–36.7; O2SAT 92–100; BMI 42.5
--- NOTE | 2021-08-14 09:09 | CT_ITS ---
WS: [id number] CT HEAD TECHNIQUE: Noncontrast CT of the head obtained from the skullbase to the vertex. CLINICAL INFORMATION: STROKE LIKE SYMPTOMS COMPARISON: None. DLP: [address] scans at [facility] use at least one of these dose optimization techniques: automated e xposure control; mA and/or kV adjustment per patient size (includes targeted exams where dose is matc hed to clinical indication); or iterative reconstruction. FINDINGS: No evidence of intracranial hemorrhage or mass effect. Ventricular system and basal cisterns are byrd nt. Moderate small vessel changes with mild parenchymal volume loss. Chronic lacunar infarcts in bila teral basal ganglia and RIGHT thalamus. No extra-axial fluid collections. No evidence of mass or mass effect. Normal downs-white differentiation. Paranasal sinuses and mastoid air cells are well aerated. .Normal visualized soft tissues. CT/CT head wo con* [id number] IMPRESSION: 1. No evidence of intracranial hemorrhage or mass effect. 2. Moderate small vessel changes with mild parenchymal volume loss. Intracrani al vascular calcification. 3. Chronic lacunar infarcts in the bilateral basal ganglia and RIGHT thalamus. 4. Intracranial vascular calcification 5. No acute intracranial findings and no significant changes since 2018. Notified Anand Leavitt MD at 08/14/2021 9:26 AM.
[2021-08-14 09:18] LABS: Glucose Point of Care 92 mg/dL (70-110)
--- NOTE | 2021-08-14 09:18 | XR_ITS ---
WS: [id number] Portable AP upright chest, 08/14/2021 Clinical Data: mental status change Comparison: Chest x-ray, 07/28/2021. Findings: No nodules, masses or effusions are seen. The heart is normal. The pulmonary vascularity is not increased. No pneumonia or pneumothorax is seen. The aortic arch and descending thoracic aorta s how calcification and tortuosity. There is a monitor lead on the right chest wall. XR/XR chest 1V portable [id number] Impression: Atherosclerosis.
--- NOTE | 2021-08-14 09:29 | W.ED.NEUROSD ---
HPI - Neuro Symptoms/Deficit General: Chief Complaint: Neuro Symptoms/Deficit Stated Complaint: STROKE LIKE SYMTPOMS History of Present Illness: Patient is brought in by EMS with concerns for stroke. Per EMS the patient's states that he was normal until yesterday when he started to develop some confusion and aphasia. States patient has a history of stroke previously. The patient here states that he has had some difficulty speaking. He is alert but appears to be somewhat confused limiting the history and review of systems. He denies any sick symptoms including no fever, cough, congestion, vomiting, diarrhea. Associated symptoms: Deny chest pain, headache(s), nausea or vomiting Review of Systems Const: Denies: fever(s) or body aches Eyes: Denies: change in vision or blurry vision ENMT: Denies: throat pain or odynophagia Card: Denies: chest pain or palpitations Resp: Denies: dyspnea or productive cough GI: Reports: hematochezia; Denies: abdominal pain, nausea or vomiting : Denies: flank pain Musc: Denies: neck pain or back pain Skin/Breast: Denies: rash or pruritus Neuro: Reports: confusion and Slurred speech present; Denies: headache(s) or numbness in extremities Psych: Denies: anxiety or change in appetite Endo: Denies: polyuria or excessive sweating PFSH ED PFSH: Medical History (Updated 08/14/21 @ 12:27 by Anand Leavitt MD) Anemia Atrial fibrillation COPD (chronic obstructive pulmonary disease) Coronary artery disease CVA (cerebral vascular accident) Diabetes mellitus Dyslipidemia Gout Hyperphosphatemia Hypertension Neuropathy Obstructive sleep apnea Pure hypercholesterolemia PVD (peripheral vascular disease) Surgical History H/O hernia repair Ventral History of appendectomy Hx of cholecystectomy S/P removal of parathyroid gland Family History Father No problems noted. Other Cancer Diabetes Denies family history of CAD (coronary artery disease) Clotting disorder Dementia Hyperlipidemia Psychiatric illness Chronic kidney disease (CKD) Suicide Anesthesia complication Bleeding disorder Family history of premature coronary artery disease Lung disease Hypertension Stroke Social History Smoking and tobacco status: never smoked Alcohol intake: never History of recent travel: No NIH stroke score NIHSS: Level Of Consciousness Questions - 1b: Neither Correct Best Gaze - 2: Partial Gaze Palsy Facial Palsy - 4: Minor Paralysis Best Language - 9: Mild/Moderate Aphasia Physical Exam Const: COMMON NORMALS: no acute distress and alert (Oriented x2) EXAM LIMITATIONS: no altered mental status GENERAL APPEARANCE: cooperative, comfortable and well developed ORIENTATION/CONSCIOUSNESS: Yes awake, Yes oriented to person and Yes oriented to place HENMT: COMMON NORMALS: normocephalic and atraumatic HEAD & SCALP: normocephalic and atraumatic Eye: COMMON NORMALS: EOMs intact bilaterally (Left pupil larger than right which is normal per EMS) Neck/C-Spine: COMMON NORMALS: full ROM and supple Resp: COMMON NORMALS: normal respiratory effort, No retractions and clear to auscultation bilaterally AUSCULTATION: clear to auscultation bilaterally Cardio: COMMON NORMALS: regular rhythm RATE: bradycardic RHYTHM: regular rhythm GI: COMMON NORMALS: Normal to inspection, nondistended, normoactive bowel sounds present, Soft to palpation and non-tender PALPATION: Yes Soft to palpation Back/Pelvis: COMMON NORMALS: thoraco-lumbar ROM normal Extremity: COMMON NORMALS: normal to inspection and full ROM Neuro: SENSORIUM/ORIENTATION: Yes alert (Oriented x2), Yes oriented to person and Yes oriented to place OTHER: Mild aphasia, mild left facial droop, mild right gaze preference Skin: NARRATIVE SKIN EXAM: Dialysis fistula in the left upper arm Course Vital Signs: Vital signs: Vital Signs Temperature 97.9 F 08/14/21 09:25 Pulse Rate 51 L 08/14/21 10:52 Respiratory Rate 12 08/14/21 10:52 Blood Pressure 110/73 08/14/21 10:17 Pulse Oximetry 100 08/14/21 10:52 MDM - Neuro Symptoms/Deficit Medical Decision Making Patient is brought in by EMS with concerns for stroke. Per EMS the patient's states that he was normal until yesterday when he started to develop some confusion and aphasia. States patient has a history of stroke previously. The patient here states that he has had some difficulty speaking. He is alert but appears to be somewhat confused limiting the history and review of systems. He denies any sick symptoms including no fever, cough, congestion, vomiting, diarrhea. On physical exam he does have a slight facial droop with mild aphasia, and confusion. He also has a mild right gaze preference. Will check labs, activate stroke team, and reassess. On reassessment I talked to the patient about the test results. I discussed the case with the hospitalist and we will admit for stroke work-up and treatment. Lab Data : 08/14/21 09:16 08/14/21 09:[address] 08/14/21 09:09 IMPRESSION: 1. No evidence of intracranial hemorrhage or mass effect. 2. Moderate small vessel changes with mild parenchymal volume loss. Intracranial vascular calcification. 3. Chronic lacunar infarcts in the bilateral basal ganglia and RIGHT thalamus. 4. Intracranial vascular calcification 5. No acute intracranial findings and no significant changes since 2018. Notified Anand Leavitt MD at 08/14/2021 9:26 AM. Chest X-Ray 08/14/21 09:18 Impression: Atherosclerosis. Laboratory Results WBC 12.4 10^3/uL (4.0-10.0) H 08/14/21 09:16 RBC 4.47 10^6/uL (4.1-5.3) 08/14/21 09:16 Hgb 13.8 g/dL (11.7-16.6) 08/14/21 09:16 Hct 44.8 % (42.0-52.0) 08/14/21 09:16 MCV 100.2 fl (80-94) H 08/14/21 09:16 MCH 30.9 pg (28.0-34.0) 08/14/21 09:16 MCHC 30.8 g/dL (30.0-36.0) 08/14/21 09:16 RDW 15.1 % (12.1-15.1) 08/14/21 09:16 Plt Count 203 10^3/cmm (130-400) 08/14/21 09:16 MPV 10.6 fL (7.4-10.4) H 08/14/21 09:16 Neut % (Auto) 74.6 % 08/14/21 09:16 Lymph % (Auto) 10.2 % 08/14/21 09:16 [place] % (Auto) 7.4 % 08/14/21 09:16 Eos % (Auto) 6.1 % 08/14/21 09:16 Baso % (Auto) 0.6 % 08/14/21 09:16 Neut # (Auto) 9.23 10^3/uL (1.8-7.7) H 08/14/21 09:16 Lymph # (Auto) 1.3 10^3/uL (0.8-4.8) 08/14/21 09:16 [place] # (Auto) 0.9 10^3/uL (0.2-0.9) 08/14/21 09:16 Eos # (Auto) 0.8 10^3/uL (0.0-0.8) 08/14/21 09:16 Baso # (Auto) 0.1 10^3/uL (0.0-0.1) 08/14/21 09:16 Nucleated RBC % (auto) 0 % 08/14/21 09:16 Nucleated RBCs # 0.0 /100WBC 08/14/21 09:16 PT 14.10 SECONDS (12.1-14.9) 08/14/21 09:16 INR 1.06 (0.8-1.2) 08/14/21 09:16 APTT 30.3 SECONDS (23.9-36.7) 08/14/21 09:16 Sodium 140 mmol/L (136-145) 08/14/21 09:16 Potassium 4.7 mmol/L (3.5-5.1) 08/14/21 09:16 Chloride 94 mmol/L (98-107) L 08/14/21 09:16 Carbon Dioxide 25 mmol/L (22-29) 08/14/21 09:16 Anion Gap 25.7 (5-19) H 08/14/21 09:16 BUN 70 mg/dL (8-23) H 08/14/21 09:16 Creatinine 9.4 mg/dL (0.7-1.2) H* 08/14/21 09:16 GFR Calculation 5.6 mL/min (90-130) L 08/14/21 09:16 Glucose 99 mg/dL (65-115) 08/14/21 09:16 POC Glucose 92 mg/dL (70-110) 08/14/21 09:14 Calculated Osmolality 311 mOsm/kg (285-295) H 08/14/21 09:16 Calcium 9.2 mg/dL (8.5-10.5) 08/14/21 09:16 Total Bilirubin 0.2 mg/dL (0.15-1.2) 08/14/21 09:16 AST 11 U/L (0-40) 08/14/21 09:16 ALT 10 U/L (0-41) 08/14/21 09:16 Alkaline Phosphatase 247 IU/L (40-130) H 08/14/21 09:16 Ammonia 24 umol/L (16-60) 08/14/21 09:56 Total Protein 7.6 g/dL (6.6-8.7) 08/14/21 09:16 Albumin 4.3 g/dL (3.5-5.2) 08/14/21 09:16 Globulin 3.3 g/dL (1.3-4.6) 08/14/21 09:16 Discharge Plan Discharge Patient Disposition: Admitted As Inpatient Clinical Impression: Stroke Condition: Stable Coding Level of Care Code ED Panel Instrument Repairer for Elizabeth Fwd Exam Comprehensive
[2021-08-14 09:35] LABS: Basophils # 0.1 10^3/uL (0.0-0.1); Basophils % 0.6 %; Eosinophils # 0.8 10^3/uL (0.0-0.8); Eosinophils % 6.1 %; Hematocrit 44.8 % (42.0-52.0); Hemoglobin 13.8 g/dL (11.7-16.6); Lymphocytes # 1.3 10^3/uL (0.8-4.8); Lymphocytes % 10.2 %; Mean Corpuscular HGB Conc 30.8 g/dL (30.0-36.0); Mean Corpuscular Hemoglobin 30.9 pg (28.0-34.0); Mean Corpuscular Volume 100.2 fl (80-94); Mean Platelet Volume 10.6 fL (7.4-10.4); Monocytes # 0.9 10^3/uL (0.2-0.9); Monocytes % 7.4 %; Neutrophils # 9.23 10^3/uL (1.8-7.7); Neutrophils % 74.6 %; Nucleated Red Blood Cells % 0 %; Platelet Count 203 10^3/cmm (130-400); Red Blood Count 4.47 10^6/uL (4.1-5.3); Red Cell Distribution Width 15.1 % (12.1-15.1); White Blood Count 12.4 10^3/uL (4.0-10.0)
[2021-08-14 09:47] LABS: INR 1.06 (0.8-1.2)
[2021-08-14 09:48] LABS: Partial Thromboplastin Time 30.3 SECONDS (23.9-36.7)
[2021-08-14 10:30] LABS: Ammonia 24 umol/L (16-60)
[2021-08-14 10:45] LABS: Alanine Aminotransferase 10 U/L (0-41); Albumin Level 4.3 g/dL (3.5-5.2); Alkaline Phosphatase 247 IU/L (40-130); Anion Gap 25.7 (5-19); Aspartate Amino Transferase 11 U/L (0-40); Blood Urea Nitrogen 70 mg/dL (8-23); Calcium 9.2 mg/dL (8.5-10.5); Carbon Dioxide 25 mmol/L (22-29); Chloride 94 mmol/L (98-107); Globulin 3.3 g/dL (1.3-4.6); Glomerular Filtration Rate 5.6 mL/min (90-130); Glucose 99 mg/dL (65-115); Osmolality Calculated 311 mOsm/kg (285-295); Potassium 4.7 mmol/L (3.5-5.1); Sodium 140 mmol/L (136-145); Total Bilirubin 0.2 mg/dL (0.15-1.2); Total Protein 7.6 g/dL (6.6-8.7)
--- NOTE | 2021-08-14 11:58 | PM.CONSULT ---
Providers/Reason For Consult Consulting Physician/Specialty*: dianna samson md / telenephrology Reason for Consult*: ESRD care Requesting Physician: hospitalist service / Dr. Leavitt Primary Care Provider: Allen Ackerman DO History of Present Illness History of Present Illness Bigg Rivera is a 65 year old male w/ h/o DM, A fib, CVA, calciphylaxis, cOPD, recent home 02. Pt here w/ confusion and difficulty putting together a sentence. symptoms started yesterday. Head CT is negative for acute CVA. Renal is called for ESRD care. Review of Systems Narrative: as above, bradycardia, QUIGLEY, sob, leg pains Medications/Allergies Home Medications Medication Instructions Recorded Confirmed Last Taken Type atorvastatin 40 mg tablet 40 mg PO BEDTIME 06/30/19 08/14/21 1 Day Ago History ~07/01/19 diphenhydramine HCl 25 mg capsule 50 mg PO BEDTIME 06/30/19 08/14/21 07/02/19 03:00 History (Benadryl) folic acid 1 mg tablet 1 mg PO BEDTIME 06/30/19 08/14/21 1 Day Ago History ~07/01/19 isosorbide mononitrate 60 mg 60 mg PO BEDTIME 06/30/19 08/14/21 Unknown History tablet,extended release 24 hr sevelamer carbonate 800 mg tablet See Rx Instructions .ROUTE .COMPLEX 06/30/19 08/14/21 Unknown History (Renvela) pen needle, diabetic 31 gauge x #200 ea 06/06/20 08/14/21 Unknown Rx 5/16 (TechLITE Pen Needle) blood sugar diagnostic (Blood #300 ea 09/02/20 08/14/21 Unknown Rx Glucose Test) Cam Walker #1 ea 09/19/20 08/14/21 Unknown Rx Diabetic shoes with 3 pairs of #1 ea 10/06/20 08/14/21 Unknown Rx inserts insulin aspart U-100 100 unit/mL 5 unit (0.05 mL) SUBCUT TIDWMEAL 11/04/20 08/14/21 Unknown Rx (3 mL) subcutaneous pen (Novolog #15 ml Flexpen U-100 Insulin aspart) pen needle, diabetic 31 gauge x #100 ea 06/11/21 08/14/21 Unknown Rx 5/16 (TechLITE Pen Needle) apixaban 5 mg tablet (Eliquis) See Rx Instructions .ROUTE 06/15/21 08/14/21 Unknown Rx .COMPLEX #60 tab albuterol sulfate 2.5 mg (3 mL) INHALATION Q6H PRN 08/06/21 08/14/21 Unknown Rx #75 ml albuterol sulfate 90 mcg/actuation 2 puff INHALATION Q6H PRN #8.5 g 08/06/21 08/14/21 Unknown Rx aerosol inhaler baclofen 5 mg tablet 5 mg PO DAILY PRN #30 tab 08/06/21 08/14/21 Unknown Rx flash glucose sensor (FreeStyle #1 ea 08/06/21 08/14/21 Unknown Rx Christopher 2 Sensor) nebulizers #1 ea 08/06/21 08/14/21 Unknown Rx acetaminophen 500 mg tablet 1,000 mg PO Q6H PRN 08/14/21 08/14/21 Unknown History duloxetine 20 mg capsule,delayed 40 mg PO BEDTIME 08/14/21 08/14/21 08/08/21 History release gabapentin 300 mg capsule 300 mg PO DAILY PRN 08/14/21 08/14/21 Unknown History insulin glargine 100 unit/mL (3 55 unit SUBCUT BID 08/14/21 08/14/21 08/14/21 08:28 History mL) subcutaneous pen (Lantus Solostar U-100 Insulin) melatonin 10 mg tablet 10 mg PO BEDTIME 08/14/21 08/14/21 Unknown History promethazine 25 mg tablet 25 mg PO Q6H PRN 08/14/21 08/14/21 Unknown History temazepam 15 mg capsule 15 mg PO BEDTIME PRN 08/14/21 08/14/21 Unknown History Allergies Allergy/AdvReac Type Severity Reaction Status Date / Time COVID-19 (SARS-CoV-2) Allergy ALGY-Anaphy Verified 08/06/21 08:20 vaccine, conchita laxis PFSH Acute PFSH: Medical History (Updated 08/06/21 @ 09:11 by Allen Ackerman DO) Anemia Atrial fibrillation COPD (chronic obstructive pulmonary disease) Coronary artery disease CVA (cerebral vascular accident) Diabetes mellitus Dyslipidemia Gout Hyperphosphatemia Hypertension Neuropathy Obstructive sleep apnea Pure hypercholesterolemia PVD (peripheral vascular disease) Surgical History H/O hernia repair Ventral History of appendectomy Hx of cholecystectomy S/P removal of parathyroid gland Family History Father No problems noted. Other Cancer Diabetes Denies family history of CAD (coronary artery disease) Clotting disorder Dementia Hyperlipidemia Psychiatric illness Chronic kidney disease (CKD) Suicide Anesthesia complication Bleeding disorder Family history of premature coronary artery disease Lung disease Hypertension Stroke Social History Smoking and tobacco status: never smoked Alcohol intake: never History of recent travel: No Vitals/I&O/Wt Last Vital Signs Temp 97.9 F 08/14/21 09:25 Pulse 51 L 08/14/21 10:52 Resp 12 08/14/21 10:52 BP 110/73 08/14/21 10:17 Pulse Ox 100 08/14/21 10:52 Weight last 48 hrs Weight 127.006 kg Physical Exam Narrative: comfortable in bed vs noted- hr low heent- nc/at, eomi, anicteric neck supple lungs clear heart bradycardic, systolic murmur abd soft nt, nd, + bs ext LUE AVF w/ thrill and bruit min edema neuro- a,a, o x 1+. does not know date or situation cn intact moves all extremities Data : 08/14/21 09:16 08/14/21 09:16 A&P Assessment and plan (1) End stage renal disease on dialysis: 65 yr old man Q of CVA/ AMS 1-AMS. - head ct neg. consider mri - denies drug use -no fevers. normal cxr -has a wbc of 12- eval for infection -check abg -permissive htn 2. ESRD - hold HD today as k is 4.7, co2= 25, sat 100% -plan HD in am- 3.5 hrs, 2k bath, remove 2l 3. hgb high for ESRD - no KENDALL 4. a fib and braadycardia- considr cardiology eval for possible SSS -normal tsh 5. renal- bone- mineral- metabolism- h/o calciphylaxis x 2 -repeat vit d, pth, phos 6. COPD per medicine seen and examined w/ rN-telehealth visit -case discussed w/ pts in detail time spent 50 min Status: Acute Plan see above Consult Attestations Medical Necessity Statement: esrd, AMS, Q CVA, a fib, bradycardia Time Spent in Patient Care: Greater than 35 minutes (>than 50% of time spent in counselling and/or direct pt care on unit). Coding Level of Care Code Acute Mathematical Engineering Technician for [facility] Diagnoses End stage renal disease on dialysis N18.6; Z99.2
--- NOTE | 2021-08-14 12:25 | MRR_ITS ---
PROCEDURE INFORMATION: Exam: MR Head Without Contrast Exam date and time: 08/14/2021 12:25 PM Age: 65 years old Clinical indication: Altered mental status/memory loss and speech disturbance and weakness, extremity; Confusion or disorientation; Patient HX: Slurred speech, left side weakness, AMS; Additional info: Stroke. Had CT 08/14 also TECHNIQUE: Imaging protocol: MR of the head without contrast. COMPARISON: CT head wo con* [id number] 08/14/2021 9:06 AM FINDINGS: Brain: No acute ischemic injury focally. Periventricular deep white matter hyperintensities suggesting micro vessel ischemia on a chronic basis. No intracranial hemorrhage. Small areas prominent vascular space or chronic lacunar infarction of the right thalamus, right basal ganglia and left basal ganglia. Cerebral ventricles: Normal. No ventriculomegaly. Bones/joints: Unremarkable. Paranasal sinuses: Increased T2 signal of ethmoid sinuses. Mastoid air cells: Normal as visualized. No mastoid effusion. Orbital cavity: Unremarkable. Soft tissues: Unremarkable. Other findings: Hemispheric volume loss. MR/MR head wo con* [id number] IMPRESSION: 1. Hemispheric volume loss. 2. White-matter signal abnormality suggesting micro vessel ischemia on a chronic basis. 3. No acute ischemic injury. 4. Likely areas of chronic lacunar infarction right thalamus and bilateral basal ganglia. 5. Ethmoid sinusitis.
[2021-08-14 12:49] LABS: Uric Acid 5.9 mg/dL (3.4-7.0)
[2021-08-14 13:10] LABS: Hepatitis B Surface AB 9.9 (11.5-1000); Hepatitis B Surface Antigen Non-Reactive (Nonreactive); Hepatitis C Virus Antibody Non-Reactive (Nonreactive)
[2021-08-14 13:14] LABS: ABG PCO2 51.5 mmHg (35-45); ABG PH Result 7.33 (7.35-7.45); Alveolar-Arterial Oxygen Gradi 0.3 mmHg (5-10); Arterial Blood Gas Hematocrit 45.3 % (42-52); Base Excess ABG 0.3 mmol/L (-2.0-2.0); Blood Gas Operator Identificat glc; Blood Gas Sample Site Brachial, right; Blood Gas Sample Type Arterial; Carboxyhemoglobin 1.1 %THgb (0.4-20.1); HCO3 ABG 27.1 mmol/L (22-26); HGB O2 Sat 94.2 % (95-100); Methemoglobin 0.5 % (0.4-1.5); Oxygen Device ROOM AIR; Oxygen Saturation ABG 95.7; PO2 ABG 85.1 mmHg (80.0-100.0); Potassium Level - ABG 4.1 mmol/L (3.5-5.0); Total Hemoglobin 14.8 g/dL (14-18)
--- NOTE | 2021-08-14 14:06 | USCV_ITS ---
Bigg Rivera Age: 65 Gender: M : 1955 Exam Date: 08/14/2021 14:56 Ordering Phys: Bo Perera MD Technologist: Mary Kruger Exam Location: [facility] [place] Indication: STROKE BP: 95 / 55 HR: 65 Rhythm: Atrial fibrillation Technical Quality: Adequate MEASUREMENTS (Male / Female) Normal Values 2D ECHO LVOT Diameter 2.0 cm LV Ejection Fraction MOD 2C 61.9 % LV Ejection Fraction 2C AL 62.0 % LA Diameter 3.4 cm LA Width 3.7 cm LA Height 4.3 cm RA Width 3.0 cm RA Height 4.4 cm Aorta at Sinotubular Diameter 2.6 cm M-MODE Aortic Annulus Diameter 3.5 cm LA Ao Ratio MM 0.9 DOPPLER AV Peak Velocity 169.7 cm/s LVOT Peak Velocity 147.0 cm/s AV Area Cont Eq vti 2.9 cm squared AV Area Cont Eq pk 2.8 cm squared MV Peak Velocity 248.0 cm/s MV Area PHT 4.6 cm squared MV E' Velocity 88.5 cm/s Mitral E to MV E' Ratio 18.2 Mitral E to LV E' Lateral Ratio 16.1 Mitral E to LV E' Septal Ratio 21.1 TR Peak Velocity 210.4 cm/s TR Peak Gradient 17.7 mmHg TR Mean Velocity 181.1 cm/s TR Mean Gradient 13.9 mmHg TR Velocity Time Integral 67.1 cm TV Peak E Velocity 86.0 cm/s PV Peak Velocity 151.0 cm/s RV Acceleration Time 0.1 s RV Ejection Time 0.3 s RV AcT/ET 0.3 FINDINGS Left Ventricle Normal left ventricular size. LV systolic function is normal with EF of 60-65%. No regional wall motion abnormalities. Diatsolic function is indeterminate Right Ventricle Grossly normal Right Atrium The right atrium is normal in size. Left Atrium The left atrium is normal in size. Mitral Valve Moderate mitral annular calcification. Mild to moderate mitral stenosis with mean gradient across the valve of 6 mmHg. There is trace mitral regurgitation. Aortic Valve Not well visualized. No significant stenosis. There is no aortic regurgitation. Tricuspid Valve Not well visualized. Mild tricuspid regurgitation. Insufficient TR jet to calculate RVSP Pulmonic Valve Not well visualized Pericardium Normal pericardium without effusion. Aorta Normal ascending aorta dimension. CONCLUSIONS Technically limited quality echocardiogram because of poor ultrasonic windows LV systolic function is normal with EF of 60-65% Diastolic function is indeterminate Mild to moderate mitral stenosis with mean gradient across the valve of 6 mmHg. Trace mitral regurgitation. Mild tricuspid regurgitation. Compared to prior echocardiogram from 2017, no significant changes are seen. Nadir Castaneda MD (Electronically Signed) Final Date: 14 August 2021 18:56 S
--- NOTE | 2021-08-14 14:06 | USCV_ITS ---
Bigg Rivera Age: 65 Gender: M : 1955 Exam Date: 08/14/2021 14:32 Ordering Phys: Bo Perera MD Technologist: Mary Kruger Exam Location: [facility] [place] Indication: STROKE Risk Factors: Previous Vascular Surgery: Right Brachial BP: / Left Brachial BP: / Right Left Velocity (cm/s) Spectral Plaque Velocity (cm/s) Spectral Plaque Syst/Diast Broadening Syst/Diast Broadening 91.40/ 10.30 Prox CCA 126.20/ 11.80 100.35/10.45 Mid CCA 126.20/ 10.50 91.50/ 4.40 Distal CCA 106.50/ 11.80 73.50/ 10.30 Prox ICA 74.30 / 7.70 62.70/ 9.20 Mid ICA 69.10 / 6.50 108.80/14.20 Distal ICA 90.70 / 17.50 109.20 ECA 104.40 1.19 ICA/CCA 0.72 Antegrade Vertebral Antegrade 105.2/ 7.90 cm/s 21.80/ 10.90 cm/s 0 Tri Subclavian Tri 191.1 133.2 0 0 CONCLUSIONS Right ICA stenosis <50%. Moderate atheromatous plaque right carotid bulb/ICA. Left ICA stenosis <50%. Moderate atheromatous plaque left carotid bulb/ICA. Normal antegrade Doppler flow noted in the right vertebral artery. Normal antegrade Doppler flow noted in the left vertebral artery. Jez Hardy MD (Electronically Signed) Final Date: 17 August 2021 08:37 S
--- NOTE | 2021-08-14 14:16 | P.HP_ITS ---
Providers/Chief Complaint Admitting Physician: Bo Perera MD Primary Care Provider: Allen Ackerman DO Chief Complaint: STROKE LIKE SYMTPOMS History of Present Illness History taken through at bedside. Bigg Rivera is a 65 year old male with history of ESRD on hemodialysis, type 2 diabetes mellitus, CVA, COPD, atrial fibrillation, obstructive sleep apnea who was brought in to the ER today via EMS because of having difficulty to find words since today morning. As per the patient slept the whole day yesterday so she is not sure if he had similar complaints yesterday. As per patient he was having some difficulties yesterday. also noticed patient to have facial droop on the left side. Patient denies any weakness in any of his arms or legs. Denies any dizziness or chest pain. During my examination patient is awake and alert. On talking to the patient he states I should talk to to get more history. Blood work in the ER showed a white count 12.4, hemoglobin of 13.8, ABG showing a pH of 7.3, PCO2 of 51, PO2 of 85, chemistry showing sodium of 140, potassium of 4.7, BUN of 70, creatinine of 9.4. During my interview with the patient his blood pressure was 110s systolic with heart rate running in high 40s to low 50s with him being in and out of complete heart block. Review of Systems General: Reports: 10 or more systems reviewed and unremarkable except in HPI and below Const: Denies: fever(s), chills, body aches, change in appetite, change in weight, malaise, night sweats, diaphoresis, change in sleep pattern, daytime s leepiness or snoring Eyes: Denies: change in vision, blurry vision, photophobia, eye discomfort or eye discharge ENMT: Denies: throat pain, enlarged tonsils, hoarseness, mouth pain, oral sores, dry mouth, tinnitus, nasal congestion or post nasal drip Card: Denies: chest pain, palpitations, irregular heart rhythm, edema, swelling of feet/ankles, lightheadedness, syncope, pre-syncope, dyspnea on exertion, orthopnea, leg pain with exertion or acrocyanosis Resp: Denies: dyspnea, productive cough, non-productive cough, wheezing, stridor, pain on inspiration, change in phlegm color, hemoptysis or chest congestion GI: Denies: abdominal pain, nausea, vomiting, hematemesis, coffee ground emesis, dysphagia, heartburn, diarrhea, constipation, bloating, GI cramping, change in bowel habits, pain on defecation, hematochezia or melena : Denies: flank pain, difficulty urinating, dysuria, urinary frequency, urinary urgency, urinary hesitancy, urinary dribbling, difficulty starting urination, change in urine stream, nocturia or hematuria Musc: Denies: neck pain, back pain, extremity pain, joint pain, joint swelling, joint redness, joint stiffness or limited range of motion Neuro: Denies: headache(s), numbness in extremities, weakness in extremities, sensory changes, lack of coordination, difficulty walking, frequent falls, dizziness, vertigo, confusion, Slurred speech present, difficulty communicating thoughts or seizure-like activity Psych: Denies: anxiety, depression, mood swings, panic attacks, hopelessness or irritability Endo: Denies: polyuria, polydipsia, tired all the time, cold intolerance, excessive sweating, flushing or heat intolerance Lázaro/Lymph: Denies: easy bruising or easy bleeding All/Imm: Denies: tongue swelling, facial swelling or acute wheezing Medications/Allergies Home Medications Medication Instructions Recorded Confirmed Last Taken Type atorvastatin 40 mg tablet 40 mg PO BEDTIME 06/30/19 08/14/21 1 Day Ago History ~07/01/19 diphenhydramine HCl 25 mg capsule 50 mg PO BEDTIME 06/30/19 08/14/21 07/02/19 03:00 History (Benadryl) folic acid 1 mg tablet 1 mg PO BEDTIME 06/30/19 08/14/21 1 Day Ago History ~07/01/19 isosorbide mononitrate 60 mg 60 mg PO BEDTIME 06/30/19 08/14/21 Unknown History tablet,extended release 24 hr sevelamer carbonate 800 mg tablet See Rx Instructions .ROUTE .COMPLEX 06/30/19 08/14/21 Unknown History (Renvela) pen needle, diabetic 31 gauge x #200 ea 06/06/20 08/14/21 Unknown Rx 16 (TechLITE Pen Needle) blood sugar diagnostic (Blood #300 ea 09/02/20 08/14/21 Unknown Rx Glucose Test) Cam Walker #1 ea 09/19/20 08/14/21 Unknown Rx Diabetic shoes with 3 pairs of #1 ea 10/06/20 08/14/21 Unknown Rx inserts insulin aspart U-100 100 unit/mL 5 unit (0.05 mL) SUBCUT TIDWMEAL 11/04/20 08/14/21 Unknown Rx (3 mL) subcutaneous pen (Novolog #15 ml Flexpen U-100 Insulin aspart) pen needle, diabetic 31 gauge x #100 ea 06/11/21 08/14/21 Unknown Rx 5/ (TechLITE Pen Needle) apixaban 5 mg tablet (Eliquis) See Rx Instructions .ROUTE 06/15/21 08/14/21 Unknown Rx .COMPLEX #60 tab albuterol sulfate 2.5 mg (3 mL) INHALATION Q6H PRN 08/06/21 08/14/21 Unknown Rx #75 ml albuterol sulfate 90 mcg/actuation 2 puff INHALATION Q6H PRN #8.5 g 08/06/21 08/14/21 Unknown Rx aerosol inhaler baclofen 5 mg tablet 5 mg PO DAILY PRN #30 tab 08/06/21 08/14/21 Unknown Rx flash glucose sensor (FreeStyle #1 ea 08/06/21 08/14/21 Unknown Rx Christopher 2 Sensor) nebulizers #1 ea 08/06/21 08/14/21 Unknown Rx acetaminophen 500 mg tablet 1,000 mg PO Q6H PRN 08/14/21 08/14/21 Unknown History duloxetine 20 mg capsule,delayed 40 mg PO BEDTIME 08/14/21 08/14/21 08/08/21 History release gabapentin 300 mg capsule 300 mg PO DAILY PRN 08/14/21 08/14/21 Unknown History insulin glargine 100 unit/mL (3 55 unit SUBCUT BID 08/14/21 08/14/21 08/14/21 08:28 History mL) subcutaneous pen (Lantus Solostar U-100 Insulin) melatonin 10 mg tablet 10 mg PO BEDTIME 08/14/21 08/14/21 Unknown History promethazine 25 mg tablet 25 mg PO Q6H PRN 08/14/21 08/14/21 Unknown History temazepam 15 mg capsule 15 mg PO BEDTIME PRN 08/14/21 08/14/21 Unknown History Allergies Allergy/AdvReac Type Severity Reaction Status Date / Time COVID-19 (SARS-CoV-2) Allergy ALGY-Anaphy Verified 08/06/21 08:20 vaccine, conchita laxis PFSH Acute PFSH: Medical History (Updated 08/14/21 @ 14:24 by Bo Perera MD) Anemia Atrial fibrillation Calciphylaxis COPD (chronic obstructive pulmonary disease) Coronary artery disease COVID-19 CVA (cerebral vascular accident) Diabetes mellitus Diabetic peripheral neuropathy associated with type 2 diabetes mellitus Dyslipidemia Gout Hyperphosphatemia Hypertension Neuropathy Obstructive sleep apnea Onychodystrophy Pure hypercholesterolemia PVD (peripheral vascular disease) Surgical History H/O hernia repair Ventral History of appendectomy Hx of cholecystectomy S/P removal of parathyroid gland Family History Father No problems noted. Other Cancer Diabetes Denies family history of CAD (coronary artery disease) Clotting disorder Dementia Hyperlipidemia Psychiatric illness Chronic kidney disease (CKD) Suicide Anesthesia complication Bleeding disorder Family history of premature coronary artery disease Lung disease Hypertension Stroke Social History Smoking and tobacco status: never smoked Alcohol intake: never History of recent travel: No Vitals/I&O/Wt Last Vital Signs Temp 97.9 F 08/14/21 09:25 Pulse 51 L 08/14/21 12:57 Resp 19 H 08/14/21 12:57 BP 95/55 08/14/21 12:57 Pulse Ox 95 08/14/21 12:57 Weight last 48 hrs Weight 127.006 kg Physical Exam Narrative: General: No acute distress, AO x3, having difficulty finding words. No facial deformity, anxious HEENT: PERRL. No facial deformity. pupils bilaterally equal and reactive Chest: Normal vesicular breath sounds, no added sounds, equal good air entry bilaterally CVS: S1-S2 regular, no murmurs, no tachycardia, no gallops, no rubs Abdomen: Soft, nontender, no organomegaly, bowel sounds present Neuro: No focal deficits, no facial deformity, AO x3, power 5/5 in all limbs Data : 08/14/21 09:16 08/14/21 09:16 Micro: Microbiology 08/14/21 12:55 Blood Culture - Preliminary Blood SPECIMEN COLLECTED 08/14/21 12:53 Blood Culture - Preliminary Blood SPECIMEN COLLECTED A&P Assessment and plan (1) Expressive aphasia: Status: Acute (2) Stroke: Status: Acute (3) Heart block: Status: Acute (4) Atrial fibrillation: Status: Acute (5) Diabetes mellitus, with long-term current use of insulin: Status: Acute (6) End stage renal disease on dialysis: Status: Acute Plan 65-year-old gentleman with past medical history of CVA, ESRD on hemodialysis, type 2 diabetes mellitus, CAD comes to the ER with expressive aphasia for more than 26 hours. Patient is not a candidate for TPA because he is outside the window and also takes Eliquis at home. Expressive aphasia: Most likely secondary to stroke. Cannot rule out secondary to possible complete heart block versus variable heart block on the telemetry. Does not have any significant electrolyte of normality currently. CT head appreciated. MR head ordered. Check A1c, lipid panel. Speech/physical/occupational therapy. Aspirin 81 mg daily. Continue with home dose of atorvastatin 40 mg daily. Keep systolic blood pressure more than 180. Heart block: EKG appreciated. Cardiology consulted. No evidence of hyperkalemia or electrolyte abnormality currently. Atrial fibrillation: Not on any rate limiting drugs at home. Takes Eliquis. For now we will hold off given possible heart block in need of pacemaker. Restart as per cardiology recommendations. Hypertension: Goal blood pressure systolic more than 180 mmHg. Hold off on antihypertensives for now. Blood pressure soft. Type 2 diabetes mellitus: Continue with home dose of Lantus and NovoLog. Insulin sliding scale at low-dose protocol. End-stage renal disease: Nephrology consulted. Dialysis as per dialysis sessions. CODE STATUS: DNR/DNI. Eliquis will help with DVT prophylaxis. For now hold off for possible pacemaker implantation. SCDs. Famotidine for PUD prophylaxis. Attestations Medical Necessity Statement*: Admission for more than 2 days given variable heart block, possible need of pacemaker, expressive aphasia secondary to stroke Time Spent in Patient Care: Greater than 35 minutes Coding Level of Care Code Acute Staff Interpreter for [facility] Fwd Diagnoses Expressive aphasia R47.01 Stroke I63.9 Diabetes mellitus, with long-term current use of insulin E11.9; Z79.4 Atrial fibrillation I48.91 End stage renal disease on dialysis N18.6; Z99.2 Heart block I45.9
--- NOTE | 2021-08-14 14:31 | ECG_ITS ---
[facility] Test Date: 2021-08-14 Pat Name: Bigg Rivera Department: Room: 276 Gender: Male [employer] Leader: : 1955 Requested By: Bo Perera Order Number: [id number] Kendell MD: Addie Carlton M.D. Measurements Intervals [place] Rate: 47 P: [place]: QRS: 3 QRSD: 88 T: 64 QT: 516 QTc: 461 Interpretive Statements SINUS BRADYCARDIA WITH FIRST DEGREE AV BLOCK PROLONGED QT INTERVAL Compared to ECG 11/14/2017 15:06:35 Prolonged QT interval now present Sinus tachycardia no longer present First degree AV block no longer present Myocardial infarct finding no longer present Electronically Signed On 08-15-2021 10:32:20 MANAGER MERCHANDISE by Addie Carlton M.D. [email or web address]
[2021-08-14 15:11] LABS: NT Pro B Type Natriuretic Pept 5280 pg/mL (0-125); Procalcitonin 0.67 ng/mL (0-0.5); Thyroid Stimulating Hormone 1.14 uIU/mL (0.27-4.20)
[2021-08-14 15:22] LABS: Iron 62 ug/dL (59-158); Percent Saturation 31.4 % (20-50); Total Iron Binding Capacity 197 mcg/dl; Unsaturated Iron Binding 135 ug/dL (112-347)
--- NOTE | 2021-08-14 15:26 | P.CONIM_ITS ---
Providers/Reason For Consult Consulting Physician/Specialty*: Nadir Castaneda MD/Cardiology Reason for Consult*: Heart block/bradycardia Requesting Physician: Dr Leavitt Attending Physician: Bo Perera MD Primary Care Provider: Allen Ackerman DO History of Present Illness History of Present Illness Bigg Rivera is a 65 year old male with past medical history of end-stage renal disease on hemodialysis, atrial fibrillation, CVA, coronary artery disease, COPD who was brought to the hospital by EMS because of difficulty finding words. Patient was also drowsy the day before. However what concerned his was his inability to find words. She also had noted facial droop on the left side. No chest pain or dizziness reported. No episodes of syncope. No weakness in the extremities. Cardiology was consulted because ER noted intermittent complete heart block. Patient has atrial fibrillation. His EKG is consistent with atrial fibrillation with slow ventricular rate. Once patient was brought to the medical floor and put on telemetry, no evidence of heart block is seen. According to patient's there was a discussion of pacemaker about 6 to 7 years back as well however they decided against it. His heart rate always stays in 40s to 50s over the last 6 to 7 years. At the time of my history taking, delia chavez was very sleepy. Review of Systems General: Reports: 10 or more systems reviewed and unremarkable except in HPI and below Const: Denies: fever(s), chills, body aches, change in appetite, change in weight, malaise, night sweats, diaphoresis, change in sleep pattern, daytime sleepiness or snoring Eyes: Denies: change in vision, blurry vision, photophobia, eye discomfort or eye discharge ENMT: Denies: throat pain, enlarged tonsils, hoarseness, mouth pain, oral sores, dry mouth, tinnitus, nasal congestion or post nasal drip Card: Denies: chest pain, palpitations, irregular heart rhythm, edema, swelling of feet/ankles, lightheadedness, syncope, pre-syncope, dyspnea on exertion, orthopnea, leg pain with exertion or acrocyanosis Resp: Denies: dyspnea, productive cough, non-productive cough, wheezing, stridor, pain on inspiration, change in phlegm color, hemoptysis or chest congestion GI: Denies: abdominal pain, nausea, vomiting, hematemesis, coffee ground emesis, dysphagia, heartburn, diarrhea, constipation, bloating, GI cramping, change in bowel habits, pain on defecation, hematochezia or melena : Denies: flank pain, difficulty urinating, dysuria, urinary frequency, urinary urgency, urinary hesitancy, urinary dribbling, difficulty starting urination, change in urine stream, nocturia or hematuria Musc: Denies: neck pain, back pain, extremity pain, joint pain, joint swelling, joint redness, joint stiffness or limited range of motion Neuro: Denies: headache(s), numbness in extremities, weakness in extremities, sensory changes, lack of coordination, difficulty walking, frequent falls, dizziness, vertigo, confusion, Slurred speech present, difficulty communicating thoughts or seizure-like activity Psych: Denies: anxiety, depression, mood swings, panic attacks, hopelessness or irritability Endo: Denies: polyuria, polydipsia, tired all the time, cold intolerance, excessive sweating, flushing or heat intolerance Lázaro/Lymph: Denies: easy bruising or easy bleeding All/Imm: Denies: tongue swelling, facial swelling or acute wheezing Medications/Allergies Home Medications Medication Instructions Recorded Confirmed Last Taken Type atorvastatin 40 mg tablet 40 mg PO BEDTIME 06/30/19 08/14/21 1 Day Ago History ~07/01/19 diphenhydramine HCl 25 mg capsule 50 mg PO BEDTIME 06/30/19 08/14/21 07/02/19 03:00 History (Benadryl) folic acid 1 mg tablet 1 mg PO BEDTIME 06/30/19 08/14/21 1 Day Ago History ~07/01/19 isosorbide mononitrate 60 mg 60 mg PO BEDTIME 06/30/19 08/14/21 Unknown History tablet,extended release 24 hr sevelamer carbonate 800 mg tablet See Rx Instructions .ROUTE .COMPLEX 06/30/19 08/14/21 Unknown History (Renvela) pen needle, diabetic 31 gauge x #200 ea 06/06/20 08/14/21 Unknown Rx 11/09 (TechLITE Pen Needle) blood sugar diagnostic (Blood #300 ea 09/02/20 08/14/21 Unknown Rx Glucose Test) Cam Walker #1 ea 09/19/20 08/14/21 Unknown Rx Diabetic shoes with 3 pairs of #1 ea 10/06/20 08/14/21 Unknown Rx inserts insulin aspart U-100 100 unit/mL 5 unit (0.05 mL) SUBCUT TIDWMEAL 11/04/20 08/14/21 Unknown Rx (3 mL) subcutaneous pen (Novolog #15 ml Flexpen U-100 Insulin aspart) pen needle, diabetic 31 gauge x #100 ea 06/11/21 08/14/21 Unknown Rx 5/16 (TechLITE Pen Needle) apixaban 5 mg tablet (Eliquis) See Rx Instructions .ROUTE 06/15/21 08/14/21 Unknown Rx .COMPLEX #60 tab albuterol sulfate 2.5 mg (3 mL) INHALATION Q6H PRN 08/06/21 08/14/21 Unknown Rx #75 ml albuterol sulfate 90 mcg/actuation 2 puff INHALATION Q6H PRN #8.5 g 08/06/21 08/14/21 Unknown Rx aerosol inhaler baclofen 5 mg tablet 5 mg PO DAILY PRN #30 tab 08/06/21 08/14/21 Unknown Rx flash glucose sensor (FreeStyle #1 ea 08/06/21 08/14/21 Unknown Rx Christopher 2 Sensor) nebulizers #1 ea 08/06/21 08/14/21 Unknown Rx acetaminophen 500 mg tablet 1,000 mg PO Q6H PRN 08/14/21 08/14/21 Unknown History duloxetine 20 mg capsule,delayed 40 mg PO BEDTIME 08/14/21 08/14/21 08/08/21 History release gabapentin 300 mg capsule 300 mg PO DAILY PRN 08/14/21 08/14/21 Unknown History insulin glargine 100 unit/mL (3 55 unit SUBCUT BID 08/14/21 08/14/21 08/14/21 08:28 History mL) subcutaneous pen (Lantus Solostar U-100 Insulin) melatonin 10 mg tablet 10 mg PO BEDTIME 08/14/21 08/14/21 Unknown History promethazine 25 mg tablet 25 mg PO Q6H PRN 08/14/21 08/14/21 Unknown History temazepam 15 mg capsule 15 mg PO BEDTIME PRN 08/14/21 08/14/21 Unknown History Allergies Allergy/AdvReac Type Severity Reaction Status Date / Time COVID-19 (SARS-CoV-2) Allergy ALGY-Anaphy Verified 08/06/21 08:20 vaccine, conchita laxis PFSH Acute PFSH: Medical History Anemia Atrial fibrillation Calciphylaxis COPD (chronic obstructive pulmonary disease) Coronary artery disease COVID-19 CVA (cerebral vascular accident) Diabetes mellitus Diabetic peripheral neuropathy associated with type 2 diabetes mellitus Dyslipidemia Gout Hyperphosphatemia Hypertension Neuropathy Obstructive sleep apnea Onychodystrophy Pure hypercholesterolemia PVD (peripheral vascular disease) Surgical History H/O hernia repair Ventral History of appendectomy Hx of cholecystectomy S/P removal of parathyroid gland Family History Father No problems noted. Other Cancer Diabetes Denies family history of CAD (coronary artery disease) Clotting disorder Dementia Hyperlipidemia Psychiatric illness Chronic kidney disease (CKD) Suicide Anesthesia complication Bleeding disorder Family history of premature coronary artery disease Lung disease Hypertension Stroke Social History Smoking and tobacco status: never smoked Alcohol intake: never History of recent travel: No Vitals/I&O/Wt Last Vital Signs Temp 97.9 F 08/14/21 09:25 Pulse 50 L 08/14/21 14:14 Resp 18 08/14/21 14:14 BP 95/55 08/14/21 14:14 Pulse Ox 99 08/14/21 14:14 Weight last 48 hrs Weight 280 lb Physical Exam Narrative: GENERAL: Patient is drowsy and sleepy NECK: No jugular vein distension. [] HEENT: No cyanosis. No icterus. No pallor. [] HEART: Irregularly irregular, no murmur LUNGS: Clear to auscultate bilaterally. [] ABDOMEN: Soft, nontender and nondistended. Positive bowel sounds. No guarding, rebound or tenderness. [] CENTRAL NERVOUS SYSTEM: Grossly nonfocal. [] EXTREMITIES: Lower extremities with 1+ edema bilaterally. Pulses palpable in the lower extremities, both dorsalis pedis and posterior tibial. [] Data : 08/15/21 03:55 08/15/21 03:55 Micro: Microbiology 08/14/21 12:55 Blood Culture - Preliminary Blood SPECIMEN COLLECTED 08/14/21 12:53 Blood Culture - Preliminary Blood SPECIMEN COLLECTED A&P Assessment and plan (1) Expressive aphasia: Status: Acute (2) Diabetes mellitus, with long-term current use of insulin: Status: Acute (3) Mixed dyslipidemia: Status: Acute (4) Diabetes mellitus: Status: Acute (5) Atrial fibrillation: Status: Acute Plan Patient has presented with expressive aphasia and possible left-sided facial droop. The ER reported to have complete heart block intermittently. I have not seen any telemetry strips with complete heart block. He has atrial fibrillation with slow ventricular rate. We will continue to monitor him overnight. No indication for pacemaker at this time as he is hemodynamically stable and no evidence of complete heart block. His heart rates have been in the 40s to 50s over the last 6 to 7 years. Family also wants to avoid pacemaker if possible. Echocardiogram ordered. Avoid all rate controlling medications. His BUN is elevated. He was supposed to have dialysis performed today. He will need hemodialysis Stroke work-up per medicine team. His symptoms seem consistent with stroke/TIA. Thank you for involving us with care of this patient. We will continue to follow. Please call with questions. Coding Level of Care Code Acute Order Administrator for Elizabeth Correa Diagnoses Expressive aphasia R47.01 Diabetes mellitus, with long-term current use of insulin E11.9; Z79.4 Mixed dyslipidemia E78.2 Diabetes mellitus E11.9 Atrial fibrillation I48.91
[2021-08-14] MEDS: perflutren protein-a microsphr 0.22 mg/mL SDV 3 mL IV (15:36)
[2021-08-14] MEDS: famotidine 20 mg/2 mL INJ IVP (15:39)
[2021-08-14] MEDS: insulin lispro 100 unit/1 mL SUBCUT (18:03)
[2021-08-14] MEDS: sevelamer 800 mg Tablet 3200 MG PO (18:04)
[2021-08-14] MEDS: atorvastatin 40 mg Tablet PO (20:05)
[2021-08-14] MEDS: folic acid 1 mg Tablet PO (20:05)
[2021-08-14] MEDS: duloxetine 20 mg Capsule 40 MG PO (20:08)
[2021-08-14 20:48] LABS: Glucose Point of Care 272 mg/dL (70-110)
[2021-08-14] MEDS: insulin glargine 100 units/1 mL 55 UNIT SUBCUT (20:54)
[2021-08-15 00:19] VITALS: BP 137/61; PULSE 62; RESP 20; TEMP 36.7; O2SAT 92
[2021-08-15] MEDS: famotidine 20 mg/2 mL INJ IVP (01:31)
[2021-08-15 04:00] VITALS: BP 159/67; PULSE 59; RESP 21; TEMP 36.9; O2SAT 93
[2021-08-15 05:02] LABS: Basophils # 0.1 10^3/uL (0.0-0.1); Basophils % 0.4 %; Eosinophils # 0.5 10^3/uL (0.0-0.8); Eosinophils % 4.2 %; Hematocrit 41.2 % (42.0-52.0); Hemoglobin 12.7 g/dL (11.7-16.6); Lymphocytes # 1.1 10^3/uL (0.8-4.8); Lymphocytes % 8.2 %; Mean Corpuscular HGB Conc 30.8 g/dL (30.0-36.0); Mean Corpuscular Hemoglobin 31.1 pg (28.0-34.0); Mean Corpuscular Volume 100.7 fl (80-94); Mean Platelet Volume 10.6 fL (7.4-10.4); Monocytes # 0.8 10^3/uL (0.2-0.9); Monocytes % 6.1 %; Neutrophils # 10.36 10^3/uL (1.8-7.7); Neutrophils % 80.4 %; Nucleated Red Blood Cells % 0 %; Platelet Count 181 10^3/cmm (130-400); Red Blood Count 4.09 10^6/uL (4.1-5.3); White Blood Count 12.9 10^3/uL (4.0-10.0)
[2021-08-15 05:27] LABS: Calcium 8.8 mg/dL (8.5-10.5)
[2021-08-15 05:33] LABS: Parathyroid Hormone 617.8 pg/mL (15-65)
[2021-08-15 05:38] LABS: Alanine Aminotransferase 10 U/L (0-41); Albumin Level 3.8 g/dL (3.5-5.2); Alkaline Phosphatase 212 IU/L (40-130); Anion Gap 25.9 (5-19); Aspartate Amino Transferase 11 U/L (0-40); Calcium 9.2 mg/dL (8.5-10.5); Carbon Dioxide 21 mmol/L (22-29); Chloride 93 mmol/L (98-107); Chol HDL Ratio 3.65 mg/dL (1.0-5.00); Cholesterol 124 mg/dL (0-200); Globulin 3.1 g/dL (1.3-4.6); Glomerular Filtration Rate 5.2 mL/min (90-130); Glucose 98 mg/dL (65-115); HDL Cholesterol 34 mg/dL (60-100); LDL Cholesterol Calculated 42 mg/dL (50-129); LDL HDL Ratio 1.24 RATIO (0.00-3.22); Magnesium 2.4 mg/dL (1.7-2.3); Osmolality Calculated 307 mOsm/kg (285-295); Phosphorus 6.7 mg/dL (2.5-4.5); Potassium 3.9 mmol/L (3.5-5.1); Sodium 136 mmol/L (136-145); Total Bilirubin 0.2 mg/dL (0.15-1.2); Total Protein 6.9 g/dL (6.6-8.7); Triglycerides 240 mg/dL (0-150); VLDL Cholestrol Calculation 48 mg/dL (0-30)
[2021-08-15 05:41] LABS: Estmated Average Glucose 169; Hemoglobin A1C 7.5 % (4.0-6.0)
[2021-08-15 06:07] LABS: Blood Urea Nitrogen 84 mg/dL (8-23)
[2021-08-15 06:22] LABS: Glucose Point of Care 104 mg/dL (70-110)
[2021-08-15] MEDS: insulin glargine 100 units/1 mL 55 UNIT SUBCUT (07:53)
[2021-08-15] MEDS: aspirin 81 mg EC Tablet PO (07:53)
[2021-08-15] MEDS: sevelamer 800 mg Tablet 3200 MG PO ×2 (07:53→12:55)
[2021-08-15 08:27] VITALS: BP 133/64; PULSE 56; RESP 17; TEMP 36.7; O2SAT 95
[2021-08-15 08:41] LABS: 25 Hydroxy Vitamin D < 5 ng/mL (30-100)
[2021-08-15 08:50] VITALS: PULSE 49; RESP 18; O2SAT 95
[2021-08-15 08:54] VITALS: PULSE 51
--- NOTE | 2021-08-15 10:15 | P.PN_ITS ---
Subjective Subjective: Patient feeling well. Vitals/I&O/Wt Last Vital Signs Temp 98.1 F 08/15/21 08:27 Pulse 51 L 08/15/21 08:54 Resp 18 08/15/21 08:50 BP 133/64 08/15/21 08:27 Pulse Ox 95 08/15/21 08:50 08/14/21 08/15/21 08/15/21 22:59 06:59 14:59 Intake Total 1000 / 1000 240 / 240 Balance 1000 / 1000 240 / 240 Weight last 48 hrs Weight 280 lb Physical Exam 2 Narrative: GENERAL: Patient is alert and oriented today NECK: No jugular vein distension. [] HEENT: No cyanosis. No icterus. No pallor. [] HEART: Irregularly irregular, no murmur LUNGS: Clear to auscultate bilaterally. [] ABDOMEN: Soft, nontender and nondistended. Positive bowel sounds. No guarding, rebound or tenderness. [] CENTRAL NERVOUS SYSTEM: Grossly nonfocal. [] EXTREMITIES: Lower extremities with 1+ edema bilaterally. Pulses palpable in the lower extremities, both dorsalis pedis and posterior tibial. [] Data : 08/15/21 03:55 08/15/21 03:55 Micro: Microbiology 08/14/21 12:55 Blood Culture - Preliminary Blood SPECIMEN COLLECTED 08/14/21 12:53 Blood Culture - Preliminary Blood SPECIMEN COLLECTED A&P Assessment and plan (1) Expressive aphasia: Status: Resolved (2) Diabetes mellitus, with long-term current use of insulin: (3) Mixed dyslipidemia: (4) Diabetes mellitus: (5) Atrial fibrillation: Plan Patient has presented with expressive aphasia and possible left-sided facial droop. The ER reported to have complete heart block intermittently. I have not seen any telemetry strips with complete heart block. He has atrial fibrillation with slow ventricular rate. Telemetry monitoring did not show any further heart blocks overnight. He is alert and oriented today. Per family heart rate has stayed in 40s to 50s and they had decided not to put a pacemaker in the past. Recommend putting patient on heart monitor at discharge and follow-up with cardiology as outpatient. If has evidence of high degree heart block, will discuss placement of pacemaker ECHO shows preserved LV systolic function with mild to moderate mitral stenosis. Avoid all rate controlling medications. No acute stroke noted on imaging so far Thank you for involving us with care of this patient. Please call with questions Attestations Medical Necessity Statement*: Care expected to cross 2 midnights Coding Level of Care Code Acute Web Machine Tender for g Fwd Diagnoses Expressive aphasia R47.01 Diabetes mellitus, with long-term current use of insulin E11.9; Z79.4 Mixed dyslipidemia E78.2 Diabetes mellitus E11.9 Atrial fibrillation I48.91
[2021-08-15 12:09] LABS: Glucose Point of Care 169 mg/dL (70-110)
--- NOTE | 2021-08-15 12:22 | P.DS_ITS ---
Discharge Providers Date of Admission: 08/14/21 12:27 Date of Discharge: August 15, 2021 Attending Provider at Admission: Bo Perera MD Attending Provider at Discharge: Bo Perera MD Consults: Cardiology: Dr. Castaneda Primary Care Provider: Allen Ackerman DO Diagnoses at Discharge Discharge Diagnosis (1) Expressive aphasia: Status: Acute (2) Diabetes mellitus, with long-term current use of insulin: Status: Acute (3) Mixed dyslipidemia: Status: Acute (4) Diabetes mellitus: Status: Acute (5) Atrial fibrillation: Status: Acute Reason for Visit Reason for Visit: STROKE LIKE SYMTPOMS Brief History: History as per HPI: History taken through at bedside. Bigg Rivera is a 65 year old male with history of ESRD on hemodialysis, type 2 diabetes mellitus, CVA, COPD, atrial fibrillation, obstructive sleep apnea who was brought in to the ER today via EMS because of having difficulty to find words since today morning.? As per the patient slept the whole day yesterday so she is not sure if he had similar complaints yesterday.? As per joel wood he was having some difficulties yesterday.? also noticed patient to have facial droop on the left side.? Patient denies any weakness in any of his arms or legs.? Denies any dizziness or chest pain. During my examination patient is awake and alert.? On talking to the patient he states I should talk to to get more history.? Blood work in the ER showed a white count 12.4, hemoglobin of 13.8, ABG showing a pH of 7.3, PCO2 of 51, PO2 of 85, chemistry showing sodium of 140, potassium of 4.7, BUN of 70, creatinine of 9.4.? During my interview with the patient his blood pressure was 110s systolic with heart rate running in high 40s to low 50s with him being in and out of complete heart block. Hospital Course Hospital Course Patient was admitted under observation for further evaluation and management for possible CVA. CT head was done which was negative for any bleed. MRI brain was done which is consistent with chronic lacunar infarct of the right thalamus and bilateral basal ganglia. Patient underwent dialysis on 08/15. On admission his antihypertensives were withheld for permissive hypertension. His blood pressures remained stable off antihypertensives. During hospitalization he was found to have persistent bradycardia with the possibility of variable heart block for which cardiology was consulted. He was seen by physical therapy/speech therapy during hospitalization. He has been discharged in hemodynamically stable condition on event monitor for next 2 weeks and follow-up with cardiology next 3 weeks for possible further evaluation of pacemaker implantation as an outpatient. He is advised to continue follow-up with his dialysis sessions as before. During hospitalization his blood pressure was also found to be on the lower side for which is antihypertensives have been adjusted. emergency response technician blood sugars were less than 100 given his CKD dose of Lantus has been decreased to 50 units twice daily from 55 units twice daily. Physical Exam Narrative: General: No acute distress, AO x3, no more facial deformity or slurred speech or finding difficulty in words HEENT: PERRL. No facial deformity. pupils bilaterally equal and reactive Chest: Normal vesicular breath sounds, no added sounds, equal good air entry bilaterally CVS: S1-S2 regular, no murmurs, no tachycardia, no gallops, no rubs Abdomen: Soft, nontender, no organomegaly, bowel sounds present Neuro: No focal deficits, no facial deformity, AO x3, power 5/5 in all limbs Discharge Data Studies Completed and Pending Completed Studies During Hospitalization Category Date Time Status CT head wo con* [id number] Urgent Cat Scan 08/14/21 09:09 Completed XR chest 1V portable [id number] Stat Exams 08/14/21 09:18 Completed MR head wo con* [id number] Urgent MRI 08/14/21 12:25 Completed CV. echo wo/w contrast [id number] Routine Ultrasound 08/14/21 14:06 Completed Pending at discharge Category Date Time Status ABG FULL [Arterial Blood Gas Full] Stat Lab 08/14/21 13:02 Results Blood Culture Stat Lab 08/14/21 12:55 Results C DIFF [Clostridioides Difficile PCR] Routine Lab 08/15/21 06:36 Uncollected Complete Blood Count w/Auto AM LABS Lab 08/16/21 04:00 Ordered Complete Blood Count w/Auto AM LABS Lab 08/17/21 04:00 Ordered Comprehensive Metabolic Panel AM LABS Lab 08/16/21 04:00 Ordered Comprehensive Metabolic Panel AM LABS Lab 08/17/21 04:00 Ordered Drug Screen, Urine Stat Lab 08/14/21 14:05 Uncollected Magnesium AM LABS Lab 08/16/21 04:00 Ordered Magnesium AM LABS Lab 08/17/21 04:00 Ordered Phosphorus AM LABS Lab 08/16/21 04:00 Ordered Phosphorus AM LABS Lab 08/17/21 04:00 Ordered Urinalysis Routine Lab 08/14/21 14:06 Uncollected CV carotid duplex BI* [id number] Routine Ultrasound 08/14/21 14:06 Taken Radiology Impressions Head CT 08/14/21 09:09 IMPRESSION: 1. No evidence of intracranial hemorrhage or mass effect. 2. Moderate small vessel changes with mild parenchymal volume loss. Intracranial vascular calcification. 3. Chronic lacunar infarcts in the bilateral basal ganglia and RIGHT thalamus. 4. Intracranial vascular calcification 5. No acute intracranial findings and no significant changes since 2018. Notified Anand Leavitt MD at 08/14/2021 9:26 AM. Chest X-Ray 08/14/21 09:18 Impression: Atherosclerosis. Head MRI 08/14/21 12:25 IMPRESSION: 1. Hemispheric volume loss. 2. White-matter signal abnormality suggesting micro vessel ischemia on a chronic basis. 3. No acute ischemic injury. 4. Likely areas of chronic lacunar infarction right thalamus and bilateral basal ganglia. 5. Ethmoid sinusitis. Laboratory Results WBC 12.9 10^3/uL (4.0-10.0) H 08/15/21 03:55 RBC 4.09 10^6/uL (4.1-5.3) L 08/15/21 03:55 Hgb 12.7 g/dL (11.7-16.6) 08/15/21 03:55 Hct 41.2 % (42.0-52.0) L 08/15/21 03:55 MCV 100.7 fl (80-94) H 08/15/21 03:55 MCH 31.1 pg (28.0-34.0) 08/15/21 03:55 MCHC 30.8 g/dL (30.0-36.0) 08/15/21 03:55 RDW 15.0 % (12.1-15.1) 08/15/21 03:55 Plt Count 181 10^3/cmm (130-400) 08/15/21 03:55 MPV 10.6 fL (7.4-10.4) H 08/15/21 03:55 Neut % (Auto) 80.4 % 08/15/21 03:55 Lymph % (Auto) 8.2 % 08/15/21 03:55 [place] % (Auto) 6.1 % 08/15/21 03:55 Eos % (Auto) 4.2 % 08/15/21 03:55 Baso % (Auto) 0.4 % 08/15/21 03:55 Neut # (Auto) 10.36 10^3/uL (1.8-7.7) H 08/15/21 03:55 Lymph # (Auto) 1.1 10^3/uL (0.8-4.8) 08/15/21 03:55 [place] # (Auto) 0.8 10^3/uL (0.2-0.9) 08/15/21 03:55 Eos # (Auto) 0.5 10^3/uL (0.0-0.8) 08/15/21 03:55 Baso # (Auto) 0.1 10^3/uL (0.0-0.1) 08/15/21 03:55 Nucleated RBC % (auto) 0 % 08/15/21 03:55 Nucleated RBCs # 0.0 /100WBC 08/15/21 03:55 PT 14.10 SECONDS (12.1-14.9) 08/14/21 09:16 INR 1.06 (0.8-1.2) 08/14/21 09:16 APTT 30.3 SECONDS (23.9-36.7) 08/14/21 09:16 Specimen Type Arterial 08/14/21 13:02 Sample Site Brachial, right 08/14/21 13:02 ABG pH 7.33 (7.35-7.45) L 08/14/21 13:02 ABG pCO2 51.5 mmHg (35-45) H 08/14/21 13:02 ABG pO2 85.1 mmHg (80.0-100.0) 08/14/21 13:02 ABG HCO3 27.1 mmol/L (22-26) H 08/14/21 13:02 ABG O2 Saturation 95.7 08/14/21 13:02 ABG Base Excess 0.3 mmol/L (-2.0-2.0) 08/14/21 13:02 Mickey Test N/a 08/14/21 13:02 A-a O2 Gradient 0.3 mmHg (5-10) L 08/14/21 13:02 Hematocrit 45.3 % (42-52) 08/14/21 13:02 Hgb O2 Saturation 94.2 % (95-100) L 08/14/21 13:02 Carboxyhemoglobin 1.1 %THgb (0.4-20.1) 08/14/21 13:02 Methemoglobin 0.5 % (0.4-1.5) 08/14/21 13:02 Total Hemoglobin 14.8 g/dL (14-18) 08/14/21 13:02 Sodium 141.0 mmol/L (131-143) 08/14/21 13:02 Potassium 4.1 mmol/L (3.5-5.0) 08/14/21 13:02 Glucose 70.0 mg/dL (70-115) 08/14/21 13:02 O2 Delivery Device Room air 08/14/21 13:02 FiO2 21.0 % 08/14/21 13:02 Internal Review And Audit Compliance ID [email or web address] 08/14/21 13:02 Sodium 136 mmol/L (136-145) 08/15/21 03:55 Potassium 3.9 mmol/L (3.5-5.1) 08/15/21 03:55 Chloride 93 mmol/L (98-107) L 08/15/21 03:55 Carbon Dioxide 21 mmol/L (22-29) L 08/15/21 03:55 Anion Gap 25.9 (5-19) H 08/15/21 03:55 BUN 84 mg/dL (8-23) H* 08/15/21 03:55 Creatinine 10.0 mg/dL (0.7-1.2) H* 08/15/21 03:55 GFR Calculation 5.2 mL/min (90-130) L 08/15/21 03:55 Glucose 98 mg/dL (65-115) 08/15/21 03:55 POC Glucose 169 mg/dL (70-110) H 08/15/21 10:56 Estimat Average Glucose 169 08/15/21 03:55 Hemoglobin A1c 7.5 % (4.0-6.0) H 08/15/21 03:55 Calculated Osmolality 307 mOsm/kg (285-295) H 08/15/21 03:55 Uric Acid 5.9 mg/dL (3.4-7.0) 08/14/21 09:16 Calcium 9.2 mg/dL (8.5-10.5) 08/15/21 03:55 Phosphorus 6.7 mg/dL (2.5-4.5) H 08/15/21 03:55 Magnesium 2.4 mg/dL (1.7-2.3) H 08/15/21 03:55 Iron 62 ug/dL (59-158) 08/14/21 09:16 TIBC 197 mcg/dl 08/14/21 09:16 % Saturation 31.4 % (20-50) 08/14/21 09:16 Unsat Iron Binding 135 ug/dL (112-347) 08/14/21 09:16 Total Bilirubin 0.2 mg/dL (0.15-1.2) 08/15/21 03:55 AST 11 U/L (0-40) 08/15/21 03:55 ALT 10 U/L (0-41) 08/15/21 03:55 Alkaline Phosphatase 212 IU/L (40-130) H 08/15/21 03:55 Ammonia 24 umol/L (16-60) 08/14/21 09:56 NT-Pro-B Natriuret Pep 5280 pg/mL (0-125) H 08/14/21 09:16 Total Protein 6.9 g/dL (6.6-8.7) 08/15/21 03:55 Albumin 3.8 g/dL (3.5-5.2) 08/15/21 03:55 Globulin 3.1 g/dL (1.3-4.6) 08/15/21 03:55 Triglycerides 240 mg/dL (0-150) H 08/15/21 03:55 Cholesterol 124 mg/dL (0-200) 08/15/21 03:55 LDL Cholesterol, Calc 42 mg/dL (50-129) L 08/15/21 03:55 Total VLDL Cholesterol 48 mg/dL (0-30) H 08/15/21 03:55 HDL Cholesterol 34 mg/dL (60-100) L 08/15/21 03:55 LDL/HDL Ratio 1.24 RATIO (0.00-3.22) 08/15/21 03:55 Cholesterol/HDL Ratio 3.65 mg/dL (1.0-5.00) 08/15/21 03:55 25-OH Vitamin D Total < 5 ng/mL (30-100) L 08/15/21 03:55 Procalcitonin 0.67 ng/mL (0-0.5) H 08/14/21 09:16 TSH 1.14 uIU/mL (0.27-4.20) 08/14/21 09:16 PTH Intact 617.8 pg/mL (15-65) H 08/15/21 03:55 Calcium (PTH Intact) 8.8 mg/dL (8.5-10.5) 08/15/21 03:55 Hep Bs Antigen Non-reactive (Nonreactive) 08/14/21 09:16 Hep Bs Antibody 9.9 (11.5-1000) L 08/14/21 09:16 Hepatitis C Antibody Non-reactive (Nonreactive) 08/14/21 09:16 Vitals Last Vital Signs Temp 98.1 F 08/15/21 08:27 Pulse 51 L 08/15/21 08:54 Resp 18 08/15/21 08:50 BP 133/64 08/15/21 08:27 Pulse Ox 95 08/15/21 08:50 Discharge Plan Discharge Patient Disposition: Home Condition: Stable Prescriptions: New isosorbide mononitrate 30 mg tablet extended release 24 hr 30 mg PO DAILY Qty: 30 0RF Continued albuterol sulfate 90 mcg/actuation HFA aerosol inhaler 2 puff inhalation Q6H PRN (Reason: shortness of breath or wheezing) Qty: 8.5 2RF (DME) [employer] Christopher 2 Sensor Kit See Rx Instructions .Route Qty: 1 0RF Rx Instructions: As directed. He is checking sugars 5x daily and having difficulty with obtaining blood. (DME) nebulizers [facility] [place] See Rx Instructions .Route Qty: 1 0RF Rx Instructions: As directed. Please include Nebulizer, tubing and mask. albuterol sulfate 2.5 mg /3 mL (0.083 %) solution for nebulization 2.5 mg inhalation Q6H PRN (Reason: shortness of breath or wheezing) Qty: 75 0RF baclofen 5 mg tablet 5 mg PO DAILY PRN (Reason: Leg cramps, muscle spasm) Qty: 30 1RF (DME) Cam Walker See Rx Instructions .ROUTE .MEDSUPPLY Qty: 1 0RF Rx Instructions: As directed (DME) Diabetic shoes with 3 pairs of inserts See Rx Instructions .Route .MEDSUPPLY Qty: 1 0RF Rx Instructions: As directed by [facility] Novolog Flexpen U-100 Insulin 100 unit/mL (3 mL) insulin pen 5 unit SUBCUT TIDWMEAL Qty: 15 8RF (DME) pen needle, diabetic [TechLITE Pen Needle] 31 gauge x 5/16 needle See Rx Instructions .ROUTE .MEDSUPPLY Qty: 200 11RF Rx Instructions: As directed (DME) Blood Glucose Test Strip See Rx Instructions .ROUTE .MEDSUPPLY Qty: 300 3RF Rx Instructions: TEST THREE TIMES DAILY (DME) pen needle, diabetic [TechLITE Pen Needle] 31 gauge x 5/16 needle See Rx Instructions .ROUTE .MEDSUPPLY Qty: 100 11RF Rx Instructions: two times daily Eliquis 5 mg tablet See Rx Instructions .ROUTE .COMPLEX Qty: 60 3RF Dose Instruction: TAKE 1 TABLET BY MOUTH TWICE A DAY Rx Instructions: 5mg po bid on tue,, and sat 5mg po qpm on dialysis days mon,wed,fri atorvastatin 40 mg tablet 40 mg PO BEDTIME 0RF diphenhydramine HCl [Benadryl] 25 mg Capsule 50 mg PO BEDTIME 0RF folic acid 1 mg tablet 1 mg PO BEDTIME 0RF sevelamer carbonate [Renvela] 800 mg tablet See Rx Instructions .ROUTE .COMPLEX 0RF Rx Instructions: 3,200mg (4 tabs) po tid and 1,600mg (2 tabs)po with snacks Tylenol Ex Str Rapid Release 500 mg Tablet 1,000 mg PO Q6H PRN (Reason: Pain) 0RF melatonin 10 mg Tablet 10 mg PO BEDTIME 0RF temazepam 15 mg capsule 15 mg PO BEDTIME PRN (Reason: Sleep) 0RF promethazine 25 mg tablet 25 mg PO Q6H PRN (Reason: Nausea) 0RF gabapentin 300 mg capsule 300 mg PO DAILY PRN (Reason: Pain) 0RF duloxetine 20 mg capsule,delayed release(DR/EC) 40 mg PO BEDTIME 0RF Changed Lantus Solostar U-100 Insulin 100 unit/mL (3 mL) insulin pen 50 unit SUBCUT BID Qty: 0 0RF Discontinued isosorbide mononitrate 60 mg tablet extended release 24 hr 60 mg PO BEDTIME 0RF Discharge Orders: Discharge Order (Routine); Ordered 08/15/21 Ordered By: Bo Perera Other Ambulatory Orders: MCT/Event Monitor 21 Days (Routine) Timeframe: 1 Week Facility: [facility] - Location: Radiology Ordered By: Bo Perera Referrals: Allen Ackerman DO [Primary Care Provider] - Nadir Castaneda M.D [Physician] - 1 month Discharge Diet: Cardiac and Diabetic Discharge Activity: Resume usual activity Patient Instructions: Opioid Safety Activity Restrictions/Additional Instructions: Dose of Imdur has been decreased to 30 mg daily. Dose of Lantus has been decreased to 50 units twice daily. Please follow-up with cardiology within next 3 weeks. Please follow-up with heart services for placement of event monitor early next week. Discharge Attestations Time Spent in Discharge Care*: greater than 30 min Specific Discharge Activities: educating patient, educating and/or supporting family/caregiver, discussing with pcp/other providers, discussing with special education case manager/social workers/dc planners, documenting/other paperwork and evaluating patient/reviewing data Status at Discharge: Cognitive status at discharge: cognitively intact , Behavioral status at discharge: cooperative , Functional status at discharge: independent ambulation , Overall status at discharge: patient is back to baseline Quality Metrics Clinical Quality Measures [ No reported AMI, CVA or VTE this stay] Coding Level of Care Code Acute Chg FW DC note Diagnoses Expressive aphasia R47.01 Diabetes mellitus, with long-term current use of insulin E11.9; Z79.4 Mixed dyslipidemia E78.2 Diabetes mellitus E11.9 Atrial fibrillation I48.91
[2021-08-15] MEDS: insulin lispro 100 unit/1 mL SUBCUT (12:55)
--- NOTE | 2021-08-15 14:06 | P.PN_ITS ---
Subjective Subjective: I am seeing him in follow up for his ESRD management and dialysis needs. Pt was seen while he was getting HD. Tolerating it well. No chest pain or shortness of breath Medications: Reviewed: Yes Vitals/I&O/Wt Last Vital Signs Temp 98.1 F 08/15/21 08:27 Pulse 51 L 08/15/21 08:54 Resp 18 08/15/21 08:50 BP 133/64 08/15/21 08:27 Pulse Ox 95 08/15/21 08:50 08/14/21 08/15/21 08/15/21 22:59 06:59 14:59 Intake Total 1000 / 1000 240 / 240 Balance 1000 / 1000 240 / 240 Weight last 48 hrs Weight 127.006 kg Physical Exam Const: COMMON NORMALS: no acute distress and patient oriented x3 GENERAL APPEARANCE: cooperative and comfortable Neuro: COMMON NORMALS: patient oriented x3 Data : 08/15/21 03:55 08/15/21 03:55 Micro: Microbiology 08/14/21 12:53 Blood Culture - Preliminary Blood NEGATIVE TO DATE 08/14/21 12:55 Blood Culture - Preliminary Blood NEGATIVE TO DATE A&P Assessment and plan (1) End stage renal disease on dialysis: Getting HD today. Tolerating it well. Will try to remove 2 lit if possible Status: Acute (2) HTN (hypertension): BP under control Status: Acute (3) Anemia: Hb within goal Status: Acute Attestations Medical Necessity Statement*: ESRD Coding Level of Care Code Acute Pharmacy Affairs Assistant for Elizabeth Correa Diagnoses End stage renal disease on dialysis N18.6; Z99.2 HTN (hypertension) I10 Anemia D64.9
[2021-08-15 14:30] VITALS: BP 101/37; BP 103/50; PULSE 62; PULSE 67; RESP 16; TEMP 36.7; TEMP 36.8
== END 2021-08-15 15:00 | disposition home or self-care (01) | DRG 64 ==
LOC: ER 12:27 → MEDSURG 13:17
PROVIDERS: Internal Medicine Nephrology; Admitting Provider Student in an Organized Health Care Education/Training Program; Emergency Provider Emergency Medicine; PCP Family Medicine; Visit Provider Student in an Organized Health Care Education/Training Program
DX: I63.9 Cerebral infarction, unspecified (principal); N18.6 End stage renal disease; I12.0 Hypertensive chronic kidney disease with stage 5 chronic kidney disease or end stage renal disease; R47.01 Aphasia; R29.810 Facial weakness; R29.705 NIHSS score 5; Z86.16 Personal history of COVID-19; Z86.73 Personal history of transient ischemic attack (TIA), and cerebral infarction without residual deficits; D63.1 Anemia in chronic kidney disease; I48.91 Unspecified atrial fibrillation; J44.9 Chronic obstructive pulmonary disease, unspecified; I25.10 Atherosclerotic heart disease of native coronary artery without angina pectoris; E11.40 Type 2 diabetes mellitus with diabetic neuropathy, unspecified; E11.51 Type 2 diabetes mellitus with diabetic peripheral angiopathy without gangrene; E11.22 Type 2 diabetes mellitus with diabetic chronic kidney disease; Z99.2 Dependence on renal dialysis; E78.2 Mixed hyperlipidemia; M10.9 Gout, unspecified; G47.33 Obstructive sleep apnea (adult) (pediatric); E78.00 Pure hypercholesterolemia, unspecified; E89.2 Postprocedural hypoparathyroidism; Z66 Do not resuscitate; Z79.51 Long term (current) use of inhaled steroids; Z79.4 Long term (current) use of insulin; Z79.01 Long term (current) use of anticoagulants
CPT/HCPCS: 36415; 36416; 36600; 70450; 70551; 71045; 80051; 80053; 80061; 82140; 82306; 82310; 82330; 82805; 82962; 83036; 83540; 83550; 83735; 83880; 83970; 84100; 84145; 84443; 84550; 85025; 85610; 85730; 86706; 86803; 87040; 87340; 92523; 92610; 93005; 93880; 94640; 94664; 97110; 97161; 97165; 97530; 99285; C8929; J1815 ×2; J3490; J7611; Q9956

== ENCOUNTER → 2021-09-17 13:55 | Outpatient (BNVA) | payer MEDICARE, SELFPAY | PROVIDERS: PCP Family Medicine; Visit Provider Internal Medicine | DX: Z09 Encounter for follow-up examination after completed treatment for conditions other than malignant neoplasm (principal); E11.649 Type 2 diabetes mellitus with hypoglycemia without coma; I10 Essential (primary) hypertension; R00.1 Bradycardia, unspecified; I45.9 Conduction disorder, unspecified; Z86.73 Personal history of transient ischemic attack (TIA), and cerebral infarction without residual deficits | CPT/HCPCS: 99214 ==

== ENCOUNTER 2021-12-05 17:12 | Emergency (ER) | payer MEDICARE, SELFPAY ==
[2021-12-05 17:22] VITALS: BP 143/31; PULSE 67; RESP 16; TEMP 36.2; O2SAT 94; BMI 42.5
--- NOTE | 2021-12-05 17:45 | ED_ITS ---
HPI - Wound/Laceration General: Chief Complaint: Wound/Laceration Stated Complaint: POSSIBLE DVT Time Seen by Provider: 12/05/21 17:18 Source: patient Mode of arrival: EMS Limitations: no limitations History of Present Illness: This patient was transported to the emergency department from a local long-term care facility at which the patient resides. He has a history of chronic kidney disease as well as diabetes. He has had some erythema develop on his left leg and he is concerned about a possible DVT. He has had a preceding small blister on the intertriginous area of the medial great toe which she states is improved. He denies any fevers or chills or other constitutional complaints. No history of thromboembolic events. He does have a history of dependent edema and some brawny edema as well. Extremity Location: Left: lower leg Associated symptoms: Denies chills, fever(s), nausea or vomiting Review of Systems Const: Denies: fever(s), chills or body aches Eyes: Denies: change in vision or blurry vision ENMT: Denies: throat pain or odynophagia Card: Denies: chest pain, palpitations or irregular heart rhythm Resp: Denies: dyspnea, productive cough or non-productive cough GI: Denies: abdominal pain, nausea or vomiting : Reports: oliguria; Denies: flank pain Musc: Reports: extremity pain and extremity swelling; Denies: neck pain or back pain Skin/Breast: Reports: rash, erythema and sores Neuro: Reports: sensory changes (Chronic lower extremities); Denies: headache(s), numbness in extremities or weakness in extremities Psych: Denies: anxiety or depression Endo: Denies: polyuria [facility] ED PFSH: Medical History Anemia Atrial fibrillation Bradycardia Calciphylaxis COPD (chronic obstructive pulmonary disease) Coronary artery disease COVID-19 CVA (cerebral vascular accident) Diabetes mellitus Diabetes mellitus, with long-term current use of insulin Diabetic peripheral neuropathy associated with type 2 diabetes mellitus Dyslipidemia End stage renal disease on dialysis Gout Hyperphosphatemia Hypertension Mixed dyslipidemia Neuropathy Obstructive sleep apnea Onychodystrophy Pure hypercholesterolemia PVD (peripheral vascular disease) Surgical History H/O hernia repair Ventral History of appendectomy Hx of cholecystectomy S/P removal of parathyroid gland Family History Father No problems noted. Other Cancer Diabetes Denies family history of CAD (coronary artery disease) Clotting disorder Dementia Hyperlipidemia Psychiatric illness Chronic kidney disease (CKD) Suicide Anesthesia complication Bleeding disorder Family history of premature coronary artery disease Lung disease Hypertension Stroke Social History Smoking and tobacco status: never smoked Alcohol intake: never History of recent travel: No Physical Exam Narrative: EXAM NARRATIVE: Alert no acute distress he answers questions in a goal-directed fashion. Appears comfortable. Const: COMMON NORMALS: no acute distress and patient oriented x3 GENERAL APPEARANCE: comfortable NUTRITIONAL APPEARANCE: overweight HENMT: COMMON NORMALS: normocephalic, Normal nasal mucous membranes and turbinates present and moist oral mucous membranes HEAD & SCALP: normocephalic NOSE: Normal nasal mucous membranes and turbinates present Eye: COMMON NORMALS: Equal, round and reactive pupils present and EOMs intact bilaterally PUPIL: Yes Equal, round and reactive pupils present Neck/C-Spine: COMMON NORMALS: full ROM, supple and no JVD Lymph: LYMPHATIC: no lymphadenopathy noted Chest: COMMONS NORMALS: normal inspection of the chest and normal palpation of entire chest wall Resp: COMMON NORMALS: normal respiratory effort, No retractions, No use of accessory muscles and clear to auscultation bilaterally AUSCULTATION: clear to auscultation bilaterally Cardio: COMMON NORMALS: no JVD, regular rhythm, S1 normal heart sound present and Peripheral pulses 2+ throughout RHYTHM: regular rhythm HEART SOUNDS: S1 normal heart sound present PERIPHERAL PULSES: Peripheral pulses 2+ throughout GI: COMMON NORMALS: Soft to palpation and non-tender PALPATION: Yes Soft to palpation Back/Pelvis: COMMON NORMALS: no thoracic nor lumbar tenderness and thoraco- lumbar ROM normal Extremity: COMMON NORMALS: full ROM and capillary refill normal NARRATIVE EXTREMITY EXAM: Extremity exam is notable for both lower extremities having evidence of brawny edema and previous scarring. His left lower extremity from approximately proximal lower leg distally has some more erythema than that of the right. There is no proximal lymphangitis or adenopathy. Normal range of motion. No joint enlargement. He does have diminished sensation to light touch. He has palpable pulses and intact capillary refill. No palpable cords noted. There is no calf tenderness. He does have a small approximately 2 cm lesion to the medial left great toe which there is no drainage the skin is slightly disrupted but there is no drainage. Otherwise his remainder of his extremity exam is unremarkable. He has normal range of motion in all extremities. He has no deformity. Neuro: COMMON NORMALS: patient oriented x3 and moves all extremities CRANIAL NERVES: Yes CN normal except as noted SPEECH: speech normal SENSORY EXAM: Yes extremities (Diminished sensation in both lower extremities to light touch) Psych: COMMON NORMALS: mental status grossly normal Skin: NARRATIVE SKIN EXAM: Brawny edema to both lower extremities with thickened dermis. He has some erythema to the left lower extremity which is proximal to that of the right. There is no pustules or papules noted. There is the skin lesion noted to the left great toe as noted in the extremity exam. Course Reevaluation(s): Reevaluation #1: Portable bedside ultrasound was used to visualize the venous structures of the left lower extremity. Using a linear probe the popliteal vessels were visualized without difficulty. At the trifurcation and proximal they were easily compressible without any abnormalities noted. Using the same linear probe at the femoral vessels the common femoral and superficial femoral veins were observed and compressed easily. The distal femoral vein was followed along its course distally and compressed along its length. Vital Signs: Vital signs: Vital Signs Temperature 97.1 F L 12/05/21 17:22 Pulse Rate 67 12/05/21 17:22 Respiratory Rate 16 12/05/21 17:22 Blood Pressure 143/31 12/05/21 17:22 Pulse Oximetry 94 12/05/21 17:22 MDM - Wound/Laceration Medical Decision Making At this time no evidence to suggest DVT of the left lower extremity. He does have some increased erythema by his history and he also has a small skin lesion on his left great toe. I think it is reasonable for us to cover empirically with broad-spectrum cephalosporin and follow his response. Wound care will continue to be provided at the long-term care facility we also discussed return precautions. He was very comfortable and pleased with his evaluation. Stable for discharge. Medical Records I reviewed the patient's medical records. Discharge Plan Discharge Patient Disposition: Home Clinical Impression: Cellulitis of left lower extremity Condition: Stable Prescriptions: New cephalexin 500 mg capsule 500 mg PO QID 7 Days Qty: 28 0RF No Action albuterol sulfate 90 mcg/actuation HFA aerosol inhaler 2 puff inhalation Q6H PRN (Reason: shortness of breath or wheezing) Qty: 8.5 2RF (DME) FreeStyle Christopher 2 Sensor Kit See Rx Instructions .Route Qty: 1 0RF Rx Instructions: As directed. He is checking sugars 5x daily and having difficulty with obtaining blood. (DME) nebulizers Misc See Rx Instructions .Route Qty: 1 0RF Rx Instructions: As directed. Please include Nebulizer, tubing and mask. baclofen 5 mg tablet 5 mg PO DAILY PRN (Reason: Leg cramps, muscle spasm) Qty: 30 1RF (DME) Cam Walker See Rx Instructions .ROUTE .MEDSUPPLY Qty: 1 0RF Rx Instructions: As directed ([facility] [place]) Diabetic shoes with 3 pairs of inserts See Rx Instructions .Route .MEDSUPPLY Qty: 1 0RF Rx Instructions: As directed by ALLAN&O ([facility] [place]) comp.stocking,knee,long,medium Misc See Rx Instructions .Route Qty: 12 0RF Rx Instructions: As directed. Wear when up. May take off to shower or lie in bed. ([facility] [place]) pen needle, diabetic [TechLITE Pen Needle] 31 gauge x 5/16 needle See Rx Instructions .ROUTE .MEDSUPPLY Qty: 200 11RF Rx Instructions: As directed ([facility] [place]) Blood Glucose Test Strip See Rx Instructions .ROUTE .MEDSUPPLY Qty: 300 3RF Rx Instructions: TEST THREE TIMES DAILY ([facility] [place]) pen needle, diabetic [TechLITE Pen Needle] 31 gauge x 5/16 needle See Rx Instructions .ROUTE .MEDSUPPLY Qty: 100 11RF Rx Instructions: two times daily temazepam 15 mg capsule 15 mg PO BEDTIME PRN (Reason: Sleep) Qty: 30 2RF albuterol sulfate 2.5 mg /3 mL (0.083 %) solution for nebulization 2.5 mg inhalation Q6H PRN (Reason: shortness of breath or wheezing) Qty: 75 4RF Novolog Flexpen U-100 Insulin 100 unit/mL (3 mL) insulin pen 5 unit SUBCUT TIDWMEAL Qty: 15 8RF Lantus Solostar U-100 Insulin 100 unit/mL (3 mL) insulin pen 55 unit SUBCUT BID Qty: 15 3RF Eliquis 5 mg tablet See Rx Instructions .ROUTE .COMPLEX Qty: 60 3RF Dose Instruction: TAKE 1 TABLET BY MOUTH TWICE A DAY Rx Instructions: 5mg po bid on tue,, and sat 5mg po qpm on dialysis days mon,wed,fri atorvastatin 40 mg tablet 40 mg PO BEDTIME 0RF diphenhydramine HCl [Benadryl] 25 mg Capsule 50 mg PO BEDTIME 0RF folic acid 1 mg tablet 1 mg PO BEDTIME 0RF sevelamer carbonate [Renvela] 800 mg tablet See Rx Instructions .ROUTE .COMPLEX 0RF Rx Instructions: 3,200mg (4 tabs) po tid and 1,600mg (2 tabs)po with snacks acetaminophen 500 mg Tablet 1,000 mg PO Q6H PRN (Reason: Pain) 0RF melatonin 10 mg Tablet 10 mg PO BEDTIME 0RF promethazine 25 mg tablet 25 mg PO Q6H PRN (Reason: Nausea) 0RF gabapentin 300 mg capsule 300 mg PO DAILY PRN (Reason: Pain) 0RF isosorbide mononitrate 30 mg tablet extended release 24 hr 30 mg PO DAILY Qty: 30 0RF Discharge Orders: Discharge ED (Routine); Ordered 12/05/21 Ordered By: Abhishek Licea Referrals: Allen Ackerman DO [Primary Care Provider] - Discharge Diet: Usual diet and Diabetic Discharge Activity: Resume usual activity Patient Instructions: Opioid Safety Activity Restrictions/Additional Instructions: Patient is to take the medications we have prescribed for the next week. He is to continue to get wound care to his left great toe. He is continue to observe his extremities for improvement in his symptoms and appearance. If he develops worsening symptoms or other concerns at any time he is welcome to return to the emergency department for reevaluation. Coding Level of Care Code ED Media Sales Representative for Elizabeth Correa Exam Comprehensive
[2021-12-05] MEDS: cephALEXin 500 mg Capsule PO (18:04)
--- NOTE | 2021-12-05 18:11 | W.ED.WOUNDLC ---
HPI - Wound/Laceration General: Chief Complaint: Wound/Laceration Stated Complaint: POSSIBLE DVT Time Seen by Provider: 12/05/21 17:18 Source: patient Mode of arrival: EMS Limitations: no limitations PFSH ED PFSH: Medical History Anemia Atrial fibrillation Bradycardia Calciphylaxis COPD (chronic obstructive pulmonary disease) Coronary artery disease COVID-19 CVA (cerebral vascular accident) Diabetes mellitus Diabetes mellitus, with long-term current use of insulin Diabetic peripheral neuropathy associated with type 2 diabetes mellitus Dyslipidemia End stage renal disease on dialysis Gout Hyperphosphatemia Hypertension Mixed dyslipidemia Neuropathy Obstructive sleep apnea Onychodystrophy Pure hypercholesterolemia PVD (peripheral vascular disease) Surgical History H/O hernia repair Ventral History of appendectomy Hx of cholecystectomy S/P removal of parathyroid gland Family History Father No problems noted. Other Cancer Diabetes Denies family history of CAD (coronary artery disease) Clotting disorder Dementia Hyperlipidemia Psychiatric illness Chronic kidney disease (CKD) Suicide Anesthesia complication Bleeding disorder Family history of premature coronary artery disease Lung disease Hypertension Stroke Social History Smoking and tobacco status: never smoked Alcohol intake: never History of recent travel: No Course Vital Signs: Vital signs: Vital Signs Temperature 97.1 F L 12/05/21 17:22 Pulse Rate 67 12/05/21 17:22 Respiratory Rate 16 12/05/21 17:22 Blood Pressure 143/31 12/05/21 17:22 Pulse Oximetry 94 12/05/21 17:22 Discharge Plan Discharge Patient Disposition: Home Clinical Impression: Cellulitis of left lower extremity Condition: Stable Prescriptions: New cephalexin 500 mg capsule 500 mg PO QID 7 Days Qty: 28 0RF No Action albuterol sulfate 90 mcg/actuation HFA aerosol inhaler 2 puff inhalation Q6H PRN (Reason: shortness of breath or wheezing) Qty: 8.5 2RF (DME) FreeStyle Christopher 2 Sensor Kit See Rx Instructions .Route Qty: 1 0RF Rx Instructions: As directed. He is checking sugars 5x daily and having difficulty with obtaining blood. (DME) nebulizers Misc See Rx Instructions .Route Qty: 1 0RF Rx Instructions: As directed. Please include Nebulizer, tubing and mask. baclofen 5 mg tablet 5 mg PO DAILY PRN (Reason: Leg cramps, muscle spasm) Qty: 30 1RF [place] [place] Cam Walker See Rx Instructions .ROUTE .MEDSUPPLY Qty: 1 0RF Rx Instructions: As directed [place] [place] Diabetic shoes with 3 pairs of inserts See Rx Instructions .Route .MEDSUPPLY Qty: 1 0RF Rx Instructions: As directed by ALLAN&O ([facility] [place] comp.stocking,knee,long,medium Misc See Rx Instructions .Route Qty: 12 0RF Rx Instructions: As directed. Wear when up. May take off to shower or lie in bed. ([facility] [place] pen needle, diabetic [TechLITE Pen Needle] 31 gauge x 5/16 needle See Rx Instructions .ROUTE .MEDSUPPLY Qty: 200 11RF Rx Instructions: As directed ([facility] [place] Blood Glucose Test Strip See Rx Instructions .ROUTE .MEDSUPPLY Qty: 300 3RF Rx Instructions: TEST THREE TIMES DAILY ([facility] [place] pen needle, diabetic [TechLITE Pen Needle] 31 gauge x 5/16 needle See Rx Instructions .ROUTE .MEDSUPPLY Qty: 100 11RF Rx Instructions: two times daily temazepam 15 mg capsule 15 mg PO BEDTIME PRN (Reason: Sleep) Qty: 30 2RF albuterol sulfate 2.5 mg /3 mL (0.083 %) solution for nebulization 2.5 mg inhalation Q6H PRN (Reason: shortness of breath or wheezing) Qty: 75 4RF Novolog Flexpen U-100 Insulin 100 unit/mL (3 mL) insulin pen 5 unit SUBCUT TIDWMEAL Qty: 15 8RF Lantus Solostar U-100 Insulin 100 unit/mL (3 mL) insulin pen 55 unit SUBCUT BID Qty: 15 3RF Eliquis 5 mg tablet See Rx Instructions .ROUTE .COMPLEX Qty: 60 3RF Dose Instruction: TAKE 1 TABLET BY MOUTH TWICE A DAY Rx Instructions: 5mg po bid on sun,tues,thurs and sat 5mg po qpm on dialysis days mon,wed,fri atorvastatin 40 mg tablet 40 mg PO BEDTIME 0RF diphenhydramine HCl [Benadryl] 25 mg Capsule 50 mg PO BEDTIME 0RF folic acid 1 mg tablet 1 mg PO BEDTIME 0RF sevelamer carbonate [Renvela] 800 mg tablet See Rx Instructions .ROUTE .COMPLEX 0RF Rx Instructions: 3,200mg (4 tabs) po tid and 1,600mg (2 tabs)po with snacks acetaminophen 500 mg Tablet 1,000 mg PO Q6H PRN (Reason: Pain) 0RF melatonin 10 mg Tablet 10 mg PO BEDTIME 0RF promethazine 25 mg tablet 25 mg PO Q6H PRN (Reason: Nausea) 0RF gabapentin 300 mg capsule 300 mg PO DAILY PRN (Reason: Pain) 0RF isosorbide mononitrate 30 mg tablet extended release 24 hr 30 mg PO DAILY Qty: 30 0RF Discharge Orders: Discharge ED (Routine); Ordered 12/05/21 Ordered By: Abhishek Licea Referrals: Allen Ackerman DO [Primary Care Provider] - Discharge Diet: Usual diet and Diabetic Discharge Activity: Resume usual activity Patient Instructions: Opioid Safety Activity Restrictions/Additional Instructions: Patient is to take the medications we have prescribed for the next week. He is to continue to get wound care to his left great toe. He is continue to observe his extremities for improvement in his symptoms and appearance. If he develops worsening symptoms or other concerns at any time he is welcome to return to the emergency department for reevaluation. Coding Level of Care Code ED Senior Graduate Advisor for Elizabeth Correa
[2021-12-05 18:33] VITALS: BP 132/24; PULSE 61; O2SAT 96
== END 2021-12-05 18:36 | disposition home or self-care (01) ==
PROVIDERS: Emergency Provider Emergency Medicine; PCP Family Medicine
DX: L03.116 Cellulitis of left lower limb (principal); M79.605 Pain in left leg; M79.89 Other specified soft tissue disorders; E11.22 Type 2 diabetes mellitus with diabetic chronic kidney disease; I12.9 Hypertensive chronic kidney disease with stage 1 through stage 4 chronic kidney disease, or unspecified chronic kidney disease; N18.9 Chronic kidney disease, unspecified; E11.42 Type 2 diabetes mellitus with diabetic polyneuropathy; Z79.4 Long term (current) use of insulin; Z79.01 Long term (current) use of anticoagulants
CPT/HCPCS: 99282

== ENCOUNTER 2022-02-04 13:52 | Outpatient (CLI) | payer MEDICARE, SELFPAY ==
--- NOTE | 2022-02-04 14:02 | USCV_ITS ---
Bigg Rivera Age: 66 Gender: M : 1955 Exam Date: 02/04/2022 14:17 Ordering Phys: Mahin Cosby MD Technologist: DANITZA [place] [facility] [place]: HYPOTENSION BP: 144 / 68 HR: 56 Rhythm: Atrial fibrillation Technical Quality: Very technically difficult study MEASUREMENTS (Male / Female) Normal Values 2D ECHO LVOT Diameter 2.0 cm LV Ejection Fraction MOD 2C 60.8 % LV Ejection Fraction 2C AL 63.7 % LA Diameter 3.5 cm LA Width 3.6 cm LA Height 5.4 cm RA Width 3.0 cm RA Height 4.5 cm Aorta at Sinotubular Diameter 2.1 cm IVC Diameter 1.8 cm M-MODE Aortic Annulus Diameter 3.9 cm LA Ao Ratio MM 0.9 DOPPLER AV Peak Velocity 196.0 cm/s LVOT Peak Velocity 128.0 cm/s AV Area Cont Eq vti 2.2 cm squared AV Area Cont Eq pk 2.1 cm squared MV Peak Velocity 231.0 cm/s MV Area PHT 2.9 cm squared Mitral E to A Ratio 1.3 MV E' Velocity 103.0 cm/s Mitral E to MV E' Ratio 16.3 Mitral E to LV E' Lateral Ratio 16.8 Mitral E to LV E' Septal Ratio 16.1 TR Peak Velocity 245.1 cm/s TR Peak Gradient 24.0 mmHg TR Mean Velocity 200.6 cm/s TR Mean Gradient 16.5 mmHg TR Velocity Time Integral 64.3 cm TV Peak E Velocity 59.0 cm/s Right Atrial Pressure 3.0 mmHg Pulmonary Artery Systolic Pressu 27.0 mmHg FINDINGS Left Ventricle Left ventricle is normal in size. LV systolic function is grossly normal. Regional wall motion abnormalities cannot be accurately assessed because of poor ultrasonic windows. Diastolic function could not be assessed because of atrial fibrillation. Right Ventricle Normal in size and function Right Atrium Normal in size Left Atrium Normal-sized Mitral Valve Severe mitral annular calcification. Mild mitral regurgitation. Mild mitral stenosis with mean gradient of 4 mmHg. Aortic Valve Not well-visualized. No significant stenosis or regurgitation. Tricuspid Valve Grossly normal. Mild tricuspid regurgitation. Normal pulmonary artery systolic pressure. Pulmonic Valve Not visualized Pericardium Normal Aorta Normal in size IVC CONCLUSIONS Technically limited quality echocardiogram because of poor ultrasonic windows. LV systolic function is grossly normal. Diastolic function is indeterminate because of atrial fibrillation. Severe mitral annular calcification. Mild mitral regurgitation. Mild mitral stenosis with mean gradient of 4 mmHg. Mild tricuspid regurgitation. Compared to prior echocardiogram from 08/14/2021, no significant changes are seen. Nadir Castaneda MD (Electronically Signed) Final Date: 14 February 2022 11:15 S
== END 2022-02-04 13:53 | disposition home or self-care (01) ==
LOC: RAD 13:53
PROVIDERS: PCP Family Medicine; Visit Provider Internal Medicine Nephrology
DX: I95.9 Hypotension, unspecified (principal); I48.91 Unspecified atrial fibrillation; I08.1 Rheumatic disorders of both mitral and tricuspid valves
CPT/HCPCS: 93306

== ENCOUNTER → 2022-02-09 08:57 | Outpatient (BNVA) | payer MEDICARE, SELFPAY | PROVIDERS: PCP Family Medicine; Visit Provider Nurse Practitioner Family | DX: E11.621 Type 2 diabetes mellitus with foot ulcer (principal); L97.821 Non-pressure chronic ulcer of other part of left lower leg limited to breakdown of skin; I96 Gangrene, not elsewhere classified | CPT/HCPCS: 11042; 99214 ==

== ENCOUNTER → 2022-02-16 08:27 | Outpatient (BNVA) | payer MEDICARE, SELFPAY | PROVIDERS: PCP Family Medicine; Visit Provider Nurse Practitioner Family | DX: Z09 Encounter for follow-up examination after completed treatment for conditions other than malignant neoplasm (principal) | CPT/HCPCS: 99213 ==

== ENCOUNTER 2022-07-01 05:46 | Emergency (ER) | payer MEDICARE, MEDICAID, SELFPAY ==
--- NOTE | 2022-07-01 05:54 | ECG_ITS ---
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 Measurements Intervals [place] Rate: 60 P: 0 MT: 0 QRS: 7 QRSD: 92 T: 58 QT: 451 QTc: 454 Interpretive Statements Sinus rhythm SEPTAL MYOCARDIAL INFARCTION , OF INDETERMINATE AGE [40+ ms Q WAVE IN V1/V2] Compared to ECG 08/14/2021 09:14:03 Myocardial infarct finding now present Sinus bradycardia no longer present First degree AV block no longer present Prolonged QT interval no longer present Electronically Signed On 07-01-2022 8:52:28 [employer] LEATHER [employer]ORTER by Nadir Castaneda M.D. [email or web address]
--- NOTE | 2022-07-01 05:56 | W.ED.ABDPA2 ---
HPI - Abdominal Pain General: Chief Complaint: Abdominal Pain Stated Complaint: right flank pain Time Seen by Provider: 07/01/22 05:54 Source: patient Mode of arrival: ambulatory History of Present Illness: Morbidly obese 66-year-old male who presents emergency room with complaint of vague right flank pain. He also some neck pain which is chronic and unchanged. States is a cramping pain in the right flank flank. He has end-stage renal disease and is not make any urine. He has not noticed anything that makes it better or worse she currently lives in a longterm. No nausea vomiting or diarrhea. He is spitting continuously in the exam room but is able to swallow without any difficulty. No hematochezia melena hematemesis or coffee-ground emesis. He is due for dialysis today. MD elicited complaint: flank pain Onset (ago): hour(s) Pain Consistency: constant Location: R flank Severity: mild Quality: cramping Radiation: none Migration to: no migration Exacerbating factors: nothing Relieving factors: nothing Associated Symptoms: Reports GI cramping; Denies anorexia, belching, bloating, change in bowel habits, change in stool character, chills, coffee ground emesis, constipation, diarrhea, dyspepsia, excessive flatus, fever(s), heartburn, hematochezia, hematemesis, fecal incontinence, loose stools, melena, nausea, poor appetite, syncope and vomiting Review of Systems Const: Denies: fever(s), chills, fatigue or malaise ENMT: Denies: throat pain, ear or mastoid pain, nasal discharge or nasal congestion Card: Reports: irregular heart rhythm; Denies: chest pain, palpitations or syncope Resp: Denies: dyspnea, productive cough or non-productive cough GI: Reports: GI cramping; Denies: abdominal pain, nausea, vomiting, hematemesis, coffee ground emesis, heartburn, diarrhea, constipation, bloating, belching, excessive flatus, fecal incontinence, change in bowel habits, change in stool character, hematochezia or melena : Reports: flank pain Musc: Reports: neck pain (Chronic) Skin/Breast: Denies: rash or pruritus PFSH ED PFSH: Medical History Anemia Atrial fibrillation Bradycardia Calciphylaxis COPD (chronic obstructive pulmonary disease) Coronary artery disease COVID-19 CVA (cerebral vascular accident) Diabetes mellitus Diabetes mellitus, with long-term current use of insulin Diabetic peripheral neuropathy associated with type 2 diabetes mellitus Dyslipidemia End stage renal disease on dialysis Gout Hyperphosphatemia Hypertension Mixed dyslipidemia Neuropathy Obstructive sleep apnea Onychodystrophy Pure hypercholesterolemia PVD (peripheral vascular disease) Surgical History H/O hernia repair Ventral History of appendectomy Hx of cholecystectomy S/P removal of parathyroid gland Family History Father No problems noted. Other Cancer Diabetes Denies family history of CAD (coronary artery disease) Clotting disorder Dementia Hyperlipidemia Psychiatric illness Chronic kidney disease (CKD) Suicide Anesthesia complication Bleeding disorder Family history of premature coronary artery disease Lung disease Hypertension Stroke Social History Smoking and tobacco status: never smoked Alcohol intake: never History of recent travel: No Physical Exam Const: GENERAL APPEARANCE: cooperative and comfortable ORIENTATION/CONSCIOUSNESS: Yes awake, Yes oriented to person, Yes oriented to place and Yes oriented to time HENMT: COMMON NORMALS: normocephalic, atraumatic and hearing grossly normal bilaterally HEAD & SCALP: normocephalic and atraumatic Resp: COMMON NORMALS: normal respiratory effort, No retractions, No use of accessory muscles and clear to auscultation bilaterally AUSCULTATION: clear to auscultation bilaterally Cardio: COMMON NORMALS: regular rate, regular rhythm and No murmurs present (Cardio) RATE: regular rate RHYTHM: regular rhythm GI: COMMON NORMALS: Soft to palpation and No hepatosplenomegaly present AUSCULTATION: Yes normoactive bowel sounds PALPATION: Yes Soft to palpation, No Tenderness to palpation present (GI), No Guarding due to palpation present (GI) and Yes No hepatosplenomegaly present Extremity: COMMON NORMALS: normal to inspection, capillary refill normal, no clubbing, cyanosis or edema, no calf tenderness and no pedal edema Neuro: SENSORIUM/ORIENTATION: Yes oriented to person, Yes oriented to place and Yes oriented to time Skin: COMMON NORMALS: no rashes or lesions noted GENERAL SKIN EXAM: no rashes or lesions noted Course Vital Signs: Vital signs: Vital Signs Temperature 98.4 F 07/01/22 06:08 Pulse Rate 62 07/01/22 06:42 Blood Pressure 72/62 07/01/22 06:42 Pulse Oximetry 100 07/01/22 06:42 Oxygen Delivery Me thod 07/01/22 06:42 Oxygen Flow Rate 2 07/01/22 06:42 MDM - Abdominal Pain Medical Decision Making Labs and imaging reviewed. Patient would benefit from his dialysis. No significant findings at this time. Will discharge and refer to dialysis. Medical Records I reviewed the patient's medical records. Lab Data I reviewed the patient's lab results. 07/01/22 06:15 07/01/22 06:15 Labs/Radiology: Radiology Impressions Chest X-Ray 07/01/22 06:04 IMPRESSION: No acute cardiopulmonary abnormality. Abdomen/Pelvis CT 07/01/22 06:12 IMPRESSION: Trace fluid surrounding the colon at the rectosigmoid junction, of indeterminate clinical significance. No colonic wall thickening or significant fat stranding identified. COMMENTS: Evaluation of solid organs and vascular structures is limited as no IV contrast was administered. Laboratory Results WBC 15.8 10^3/uL (4.0-10.0) H 07/01/22 06:15 RBC 4.49 10^6/uL (4.1-5.3) 07/01/22 06:15 Hgb 13.7 g/dL (11.7-16.6) 07/01/22 06:15 Hct 44.3 % (42.0-52.0) 07/01/22 06:15 MCV 98.7 fl (80-94) H 07/01/22 06:15 MCH 30.5 pg (28.0-34.0) 07/01/22 06:15 MCHC 30.9 g/dL (30.0-36.0) 07/01/22 06:15 RDW 14.8 % (12.1-15.1) 07/01/22 06:15 Plt Count 245 10^3/cmm (130-400) 07/01/22 06:15 MPV 10.5 fL (7.4-10.4) H 07/01/22 06:15 Neut % (Auto) 86.8 % 07/01/22 06:15 Lymph % (Auto) 4.5 % 07/01/22 06:15 Pratt % (Auto) 5.6 % 07/01/22 06:15 Eos % (Auto) 1.9 % 07/01/22 06:15 Baso % (Auto) 0.4 % 07/01/22 06:15 Neut # (Auto) 13.68 10^3/uL (1.8-7.7) H 07/01/22 06:15 Lymph # (Auto) 0.7 10^3/uL (0.8-4.8) L 07/01/22 06:15 Pratt # (Auto) 0.9 10^3/uL (0.2-0.9) 07/01/22 06:15 Eos # (Auto) 0.3 10^3/uL (0.0-0.8) 07/01/22 06:15 Baso # (Auto) 0.1 10^3/uL (0.0-0.1) 07/01/22 06:15 Nucleated RBC % (auto) 0 % 07/01/22 06:15 Nucleated RBCs # 0.0 /100WBC 07/01/22 06:15 Sodium 135 mmol/L (136-145) L 07/01/22 06:15 Potassium 5.9 mmol/L (3.5-5.1) H 07/01/22 06:15 Chloride 90 mmol/L (98-107) L 07/01/22 06:15 Carbon Dioxide 26 mmol/L (22-29) 07/01/22 06:15 Anion Gap 24.9 (5-19) H 07/01/22 06:15 BUN 66 mg/dL (8-23) H 07/01/22 06:15 Creatinine 8.0 mg/dL (0.7-1.2) H* 07/01/22 06:15 GFR Calculation 6.7 mL/min (90-130) L 07/01/22 06:15 Glucose 267 mg/dL (65-115) H 07/01/22 06:15 Calculated Osmolality 308 mOsm/kg (285-295) H 07/01/22 06:15 Calcium 9.4 mg/dL (8.5-10.5) 07/01/22 06:15 Total Bilirubin 0.3 mg/dL (0.15-1.2) 07/01/22 06:15 AST 14 U/L (0-40) 07/01/22 06:15 ALT 13 U/L (0-41) 07/01/22 06:15 Alkaline Phosphatase 150 U/L (40-130) H 07/01/22 06:15 Total Protein 8.5 g/dL (6.6-8.7) 07/01/22 06:15 Albumin 4.0 g/dL (3.5-5.2) 07/01/22 06:15 Globulin 4.5 g/dL (1.3-4.6) 07/01/22 06:15 Lipase 21 U/L (13-60) 07/01/22 06:15 Discharge Plan Discharge Patient Disposition: Home Clinical Impression: Acute right flank pain, End stage kidney disease, Obstructive sleep apnea, Anemia, Hyperkalemia Condition: Stable Prescriptions: No Action (DME) FreeStyle Christopher 2 Sensor Kit See Rx Instructions .Route Qty: 1 0RF Rx Instructions: As directed. He is checking sugars 5x daily and having difficulty with obtaining blood. (DME) nebulizers [facility] [place] See Rx Instructions .Route Qty: 1 0RF Rx Instructions: As directed. Please include Nebulizer, tubing and mask. baclofen 5 mg tablet 5 mg PO DAILY PRN (Reason: Leg cramps, muscle spasm) Qty: 30 1RF (DME) Cam Walker See Rx Instructions .ROUTE .MEDSUPPLY Qty: 1 0RF Rx Instructions: As directed ([facility]) Diabetic shoes with 3 pairs of inserts See Rx Instructions .Route .MEDSUPPLY Qty: 1 0RF Rx Instructions: As directed by [employer] ([facility]) comp.stocking,knee,long,medium Misc See Rx Instructions .Route Qty: 12 0RF Rx Instructions: As directed. Wear when up. May take off to shower or lie in bed. (DME) pen needle, diabetic [TechLITE Pen Needle] 31 gauge x 5/16 needle See Rx Instructions .ROUTE .MEDSUPPLY Qty: 200 11RF Rx Instructions: As directed ([facility]) Blood Glucose Test Strip See Rx Instructions .ROUTE .MEDSUPPLY Qty: 300 3RF Rx Instructions: TEST THREE TIMES DAILY (DME) pen needle, diabetic [TechLITE Pen Needle] 31 gauge x 5/16 needle See Rx Instructions .ROUTE .MEDSUPPLY Qty: 100 11RF Rx Instructions: two times daily albuterol sulfate 2.5 mg /3 mL (0.083 %) solution for nebulization 2.5 mg inhalation Q6H PRN (Reason: shortness of breath or wheezing) Qty: 75 4RF Novolog Flexpen U-100 Insulin 100 unit/mL (3 mL) insulin pen 5 unit SUBCUT TIDWMEAL Qty: 15 8RF atorvastatin 40 mg tablet 40 mg PO BEDTIME diphenhydramine HCl [Benadryl] 25 mg Capsule 50 mg PO Q4H PRN (Reason: Itching) sevelamer carbonate [Renvela] 800 mg tablet 3,200 mg PO TID promethazine 25 mg tablet 25 mg PO Q6H PRN (Reason: Nausea) gabapentin 300 mg capsule 300 mg PO DAILY midodrine 5 mg Tablet 5 mg PO BID Rx Instructions: do not give last dose of day after 6PM or within 4 hrs of bedtime melatonin 3 mg Tablet 3 mg PO BEDTIME Robitussin 100 mg/5 mL Liquid 200 mg PO Q4H PRN (Reason: Cough) isosorbide mononitrate 60 mg Tablet Extended Release 24 Hr 60 mg PO DAILY loperamide-simethicone 2-125 mg Tablet 1 tab PO Q24H PRN (Reason: Gastric Reflux) Renal Caps 1 mg Capsule 1 cap PO BEDTIME Flonase 50 mcg/actuation [place],Suspension 1 spray INTRANASAL BID Rx Instructions: administer into each nostril Claritin 10 mg Tablet 10 mg PO DAILY calcium carbonate 1,000 mg Tablet 1,000 mg PO BEDTIME bismuth subsalicylate 525 mg/15 mL Suspension 525 mg PO Q24H PRN (Reason: Diarrhea) Rx Instructions: do not exceed 8 doses in a 24 hour period Natural Balance Tears 0.1-0.3 % Drops 2 drp OPHTHALMIC (EYE) Q4H PRN (Reason: Dry Eyes) Eliquis 5 mg Tablet 5 mg PO BID Lokelma 10 gram Powder In Packet See Rx Instructions .ROUTE .COMPLEX Rx Instructions: 10 g orally Mon, Wed, Fri, Sun temazepam 15 mg capsule 15 mg PO BEDTIME Lantus Solostar U-100 Insulin 100 unit/mL (3 mL) insulin pen 60 unit SUBCUT BID Tylenol 325 mg Tablet 650 mg PO Q6H PRN (Reason: Pain) Vitamin D3 25 mcg (1,000 unit) Capsule 25 mcg PO DAILY Discharge Orders: Discharge ED (Routine); Ordered 07/01/22 Ordered By: Joby Garcia Referrals: Allen Ackerman DO [Primary Care Provider] - Patient Instructions: Opioid Safety, Pain Management Activity Restrictions/Additional Instructions: You were seen today for right flank pain. CT of your abdomen was negative. Your other labs were consistent with what would be expected given your end-stage renal disease. You are discharged from the emergency room to go directly to dialysis. Lab abnormalities seen in the emergency room should be able to be corrected by her usual run of dialysis today. Coding Level of Care Code ED Inspector [employer] for Chg Fwd Exam Detailed
--- NOTE | 2022-07-01 06:04 | XRR_ITS ---
PROCEDURE INFORMATION: Exam: XR Chest Exam date and time: 07/01/2022 6:16 AM Age: 66 years old Clinical indication: Cough; Additional info: Dyspnea/cough TECHNIQUE: Imaging protocol: Radiologic exam of the chest. Views: 1 view. COMPARISON: CR XR chest 1V portable [id number] 08/14/2021 9:31 AM FINDINGS: Lungs: The lung parenchyma is clear. Pleural spaces: No pneumothorax. No pleural effusion. Heart/Mediastinum: The cardiomediastinal silhouette is within normal limits. Bones/joints: Unremarkable. XR/XR chest 1V portable [id number] IMPRESSION: No acute cardiopulmonary abnormality.
[2022-07-01 06:08] VITALS: BP 167/51; PULSE 62; TEMP 36.9; O2SAT 98
--- NOTE | 2022-07-01 06:12 | CTR_ITS ---
PROCEDURE INFORMATION: Exam: CT Abdomen And Pelvis Without Contrast Exam date and time: 07/01/2022 6:22 AM Age: 66 years old Clinical indication: Abdominal pain; Localized; Right lower quadrant (rlq); Prior surgery; Surgery type: Appy, gb, hernia TECHNIQUE: Imaging protocol: Computed tomography of the abdomen and pelvis without contrast. Radiation optimization: All CT scans at this facility use at least one of these dose optimization techniques: automated exposure control; mA and/or kV adjustment per patient size (includes targeted exams where dose is matched to clinical indication); or iterative reconstruction. COMPARISON: CR (CHEST, ) 07/01/2022 6:16 AM RADIATION DOSE METRICS: Total DLP (mGy-cm): 1506.13 FINDINGS: Heart: Mitral valve calcifications noted. Liver: The liver is normal in size and contour. Gallbladder and bile ducts: The gallbladder is surgically absent. Pancreas: The pancreas appears normal. Spleen: The spleen appears normal. Adrenal glands: The adrenals appear normal. Kidneys and ureters: Bilateral renal atrophy noted. Stomach and bowel: The stomach appears unremarkable. The small bowel loops are not abnormally dilated. The large bowel loops are not abnormally dilated. Trace fluid surrounding the colon at the rectosigmoid junction. No wall thickening or significant fat stranding identified. Appendix: The appendix is surgically absent. Intraperitoneal space: No ascites or significant fluid collection. Vasculature: The aorta is nonaneurysmal. The IVC appears normal. Lymph nodes: There are no enlarged lymph nodes. Urinary bladder: The urinary bladder is not well distended, therefore not well evaluated. Reproductive: Unremarkable as visualized. Bones/joints: Degenerative disc disease at L5-S1. Soft tissues: Postsurgical changes in the anterior abdominopelvic wall noted. 14 mm fat containing umbilical hernia. CT/CT abdomen pelvis wo con [id number] IMPRESSION: Trace fluid surrounding the colon at the rectosigmoid junction, of indeterminate clinical significance. No colonic wall thickening or significant fat stranding identified. COMMENTS: Evaluation of solid organs and vascular structures is limited as no IV contrast was administered.
[2022-07-01 06:25] LABS: Basophils # 0.1 10^3/uL (0.0-0.1); Basophils % 0.4 %; Eosinophils # 0.3 10^3/uL (0.0-0.8); Eosinophils % 1.9 %; Hematocrit 44.3 % (42.0-52.0); Hemoglobin 13.7 g/dL (11.7-16.6); Lymphocytes # 0.7 10^3/uL (0.8-4.8); Lymphocytes % 4.5 %; Mean Corpuscular HGB Conc 30.9 g/dL (30.0-36.0); Mean Corpuscular Hemoglobin 30.5 pg (28.0-34.0); Mean Corpuscular Volume 98.7 fl (80-94); Mean Platelet Volume 10.5 fL (7.4-10.4); Monocytes # 0.9 10^3/uL (0.2-0.9); Monocytes % 5.6 %; Neutrophils # 13.68 10^3/uL (1.8-7.7); Neutrophils % 86.8 %; Nucleated Red Blood Cells % 0 %; Platelet Count 245 10^3/cmm (130-400); Red Blood Count 4.49 10^6/uL (4.1-5.3); Red Cell Distribution Width 14.8 % (12.1-15.1); White Blood Count 15.8 10^3/uL (4.0-10.0)
[2022-07-01 06:42] VITALS: BP 72/62; PULSE 62; O2SAT 100
[2022-07-01 07:04] LABS: Alanine Aminotransferase 13 U/L (0-41); Alkaline Phosphatase 150 U/L (40-130); Anion Gap 24.9 (5-19); Aspartate Amino Transferase 14 U/L (0-40); Blood Urea Nitrogen 66 mg/dL (8-23); Calcium 9.4 mg/dL (8.5-10.5); Carbon Dioxide 26 mmol/L (22-29); Chloride 90 mmol/L (98-107); Globulin 4.5 g/dL (1.3-4.6); Glomerular Filtration Rate 6.7 mL/min (90-130); Glucose 267 mg/dL (65-115); Lipase 21 U/L (13-60); Osmolality Calculated 308 mOsm/kg (285-295); Potassium 5.9 mmol/L (3.5-5.1); Sodium 135 mmol/L (136-145); Total Bilirubin 0.3 mg/dL (0.15-1.2); Total Protein 8.5 g/dL (6.6-8.7)
[2022-07-01] MEDS: calcium chloride 10% Syr 10 mL 1 GM IVP (08:17)
== END 2022-07-01 10:32 | disposition home or self-care (01) ==
PROVIDERS: Emergency Provider Family Medicine; PCP Family Medicine
DX: R10.9 Unspecified abdominal pain (principal); G47.33 Obstructive sleep apnea (adult) (pediatric); D64.9 Anemia, unspecified; E87.5 Hyperkalemia; E11.22 Type 2 diabetes mellitus with diabetic chronic kidney disease; I12.0 Hypertensive chronic kidney disease with stage 5 chronic kidney disease or end stage renal disease; N18.6 End stage renal disease; J44.9 Chronic obstructive pulmonary disease, unspecified; I25.10 Atherosclerotic heart disease of native coronary artery without angina pectoris; Z86.73 Personal history of transient ischemic attack (TIA), and cerebral infarction without residual deficits; E78.2 Mixed hyperlipidemia; Z79.01 Long term (current) use of anticoagulants; Z79.4 Long term (current) use of insulin
CPT/HCPCS: 71045; 74176; 80053; 83690; 85025; 93005; 96374; 99285; J3490

== ENCOUNTER 2022-09-27 17:18 | Inpatient (IN) | payer MEDICARE, MEDICAID, SELFPAY ==
[2022-09-27] VITALS (16 sets, daily range): BP systolic 127–192; BP diastolic 49–153; PULSE 53–111; RESP 12–25; TEMP 36.9; O2SAT 76–99; BMI 33.9
--- NOTE | 2022-09-27 17:29 | XRR_ITS ---
PROCEDURE INFORMATION: Exam: XR Chest Exam date and time: 09/27/2022 5:39 PM Age: 66 years old Clinical indication: Fever and shortness of breath and other: Covid +; Additional info: Altered mental status, TECHNIQUE: Imaging protocol: Radiologic exam of the chest. Views: 1 view. COMPARISON: CR XR chest 1V portable [id number] 07/01/2022 6:16 AM FINDINGS: Lungs: Mild atelectasis or scar in the right upper lobe. Stable chronic interstitial prominence in both lungs. No consolidation. Possible mild ground-glass opacities in the left lung base. Pleural spaces: Unremarkable. No pleural effusion. No pneumothorax. Heart/Mediastinum: Unremarkable. No cardiomegaly. Bones/joints: Unremarkable. Other findings: Two AP views submitted. XR/XR chest 1V portable [id number] IMPRESSION: 1. Possible mild ground-glass opacities in the left lung base. Pneumonia is not excluded.
--- NOTE | 2022-09-27 18:13 | ED_ITS ---
HPI - Altered Mental Status General: Chief Complaint: Altered Mental Status Stated Complaint: DECREASED LOC/ COVID + Time Seen by Provider: 09/27/22 17:24 History of Present Illness: Patient presents to the ER by EMS with complaints of altered mental status. Nursing was unable to report last known well, patient's blood glucose of 58 is mcfp with administered 1 mg of glucagon which increase of blood to 98. Patient did test positive for COVID-19 on 09/24/2022, patient is alert oriented x3 but is difficult to arouse and appears to be hypersomnolent. complaint: altered mental status Onset (ago): unknown Severity: mild Consistency of symptoms: Constant Associated symptoms: Reports no associated symptoms; Deny depression Treatments prior to arrival: other (1 mg glucagon) Review of Systems General: Reports: 10 or more systems reviewed and unremarkable except in HPI and below Const: Denies: fever(s) or chills Eyes: Denies: change in vision ENMT: Denies: throat pain or odynophagia Card: Reports: edema; Denies: chest pain, palpitations or irregular heart rhythm Resp: Reports: wheezing; Denies: dyspnea, productive cough or non-productive cough GI: Denies: abdominal pain, nausea, vomiting or diarrhea : Denies: flank pain, difficulty urinating or dysuria Musc: Denies: neck pain or back pain Skin/Breast: Denies: rash or pruritus Neuro: Denies: headache(s), numbness in extremities or weakness in extremities Psych: Denies: anxiety or depression Endo: Denies: polyuria, polydipsia or tired all the time Lázaro/Lymph: Denies: easy bruising or easy bleeding [facility] PFSH: Medical History Anemia Atrial fibrillation Bradycardia Calciphylaxis COPD (chronic obstructive pulmonary disease) Coronary artery disease COVID-19 CVA (cerebral vascular accident) Diabetes mellitus Diabetes mellitus, with long-term current use of insulin Diabetic peripheral neuropathy associated with type 2 diabetes mellitus Dyslipidemia End stage renal disease on dialysis Gout Hyperphosphatemia Hypertension Mixed dyslipidemia Neuropathy Obstructive sleep apnea Onychodystrophy Pure hypercholesterolemia PVD (peripheral vascular disease) Surgical History H/O hernia repair Ventral History of appendectomy Hx of cholecystectomy S/P removal of parathyroid gland Family History Father No problems noted. Other Cancer Diabetes Denies family history of CAD (coronary artery disease) Clotting disorder Dementia Hyperlipidemia Psychiatric illness Chronic kidney disease (CKD) Suicide Anesthesia complication Bleeding disorder Family history of premature coronary artery disease Lung disease Hypertension Stroke Social History Smoking and tobacco status: never smoked Alcohol intake: never Physical Exam Const: COMMON NORMALS: no acute distress, average body habitus, patient oriented x3, no limitations, healthy appearing, alert and well nourished HENMT: COMMON NORMALS: normocephalic, atraumatic, hearing grossly normal bilaterally, external ears normal, Normal external nose present and moist oral mucous membranes HEAD & SCALP: normocephalic and atraumatic NOSE: Normal external nose present EXTERNAL EAR: Yes external ears normal Eye: COMMON NORMALS: Equal, round and reactive pupils present, EOMs intact bilaterally, conjunctivae normal and no scleral icterus CONJUNCTIVA: Yes conjunctivae normal PUPIL: Yes Equal, round and reactive pupils present Neck/C-Spine: COMMON NORMALS: full ROM, no lymphadenopathy, supple, no meningeal signs, no JVD and Thyroid normal THYROID: Thyroid normal Chest: COMMONS NORMALS: normal inspection of the chest and normal palpation of entire chest wall Resp: EFFORT & INSPECTION: Yes able to speak in complete sentences and Yes symmetric chest movement AUSCULTATION: wheezes throughout Cardio: COMMON NORMALS: no JVD, regular rate, regular rhythm, S1 normal heart sound present and S2 normal heart sound present RATE: regular rate RHYTHM: regular rhythm HEART SOUNDS: S1 normal heart sound present and S2 normal heart sound present GI: COMMON NORMALS: Normal to inspection, nondistended, normoactive bowel sounds present, Soft to palpation, non-tender, No hepatosplenomegaly present and no masses PALPATION: Yes Soft to palpation and Yes No hepatosplenomegaly p resent Extremity: NARRATIVE EXTREMITY EXAM: Pitting edema with blisters noted on bilateral lower extremities Neuro: COMMON NORMALS: patient oriented x3, CN's II-XII intact bilaterally, moves all extremities, no focal motor deficits and no sensory deficits noted SENSORIUM/ORIENTATION: Yes alert MENINGEAL SIGNS: Yes no meningeal signs Psych: COMMON NORMALS: mental status grossly normal and cooperative Skin: NARRATIVE SKIN EXAM: Bilateral lower extremities grossly edematous with blisters noted Course Vital Signs: Vital signs: Vital Signs Temperature 98.4 F 09/27/22 17:19 Pulse Rate 54 L 09/27/22 19:00 Respiratory Rate 22 H 09/27/22 19:00 Blood Pressure 127/49 09/27/22 19:00 Pulse Oximetry 97 09/27/22 19:48 Oxygen Delivery Me thod 09/27/22 18:35 Oxygen Flow Rate 2 09/27/22 18:29 Fraction of Inspir ed Oxygen 28 09/27/22 19:48 MDM - Altered Mental Status Medical Decision Making Patient arrived via EMS from [place] with complaints of altered mental status. [facility] was unable to report last known well, patient had a blue glucose of 58 the mcfp and then administered 1 mg of glucagon and it raised to 98. Patient is positive for COVID from 09/24/2022. Patient is alert and oriented x3 but difficult to arouse. Patient did answer questions appropriately. Upon further exam it was noticed that patient was getting more somnolent and ABG was obtained which was probably venous in nature but it did show his CO2 elevated. Patient was extremely hard stick and IV but when we did get the IV it showed his sugar had went down to the 30s again. He was given 1 amp of D50 and his IV. Patient was started on BiPAP per RT and lab work was obtained. Lab work showed a white count of 21,000, VBG showed CO2 of 89.2, metabolic profile showed a BUN of 63 creatinine of 7.1, blood cultures were obtained. X-ray showed possible infiltrate CT of the head chest abdomen pelvis were obtained. The patient as well as imaging and lab work was discussed with Dr. Martinez, who agreed the patient would benefit from inpatient status. [facility] paperwork was not found in his chart. Patient's CODE STATUS is unknown at this time. If the patient is a full code he will be placed in the ICU, the patient is a DNR he will be placed on MedSurg, Differential Diagnosis Likely hypoglycemia and hyponatremia; Unlikely alcoholic intoxication, altered mental status, delirium, dementia, subarachnoid hemorrhage or sepsis Lab Data 09/27/22 19:18 09/27/22 19:18 Radiology Impressions Chest X-Ray 09/27/22 17:29 IMPRESSION: 1. Possible mild ground-glass opacities in the left lung base. Pneumonia is not excluded. Head CT 09/27/22 21:06 IMPRESSION: 1. No acute intracranial abnormality. 2. Moderate chronic microangiopathy. Laboratory Results WBC 21.3 10^3/uL (4.0-10.0) H 09/27/22 19:18 RBC 3.84 10^6/uL (4.1-5.3) L 09/27/22 19:18 Hgb 11.6 g/dL (11.7-16.6) L 09/27/22 19:18 Hct 38.8 % (42.0-52.0) L 09/27/22 19:18 MCV 101.0 fl (80-94) H 09/27/22 19:18 MCH 30.2 pg (28.0-34.0) 09/27/22 19:18 MCHC 29.9 g/dL (30.0-36.0) L 09/27/22 19:18 RDW 14.3 % (12.1-15.1) 09/27/22 19:18 Plt Count 254 10^3/cmm (130-400) 09/27/22 19:18 MPV 10.1 fL (7.4-10.4) 09/27/22 19:18 Neut % (Auto) 85.0 % 09/27/22 19:18 Lymph % (Auto) 6.9 % 09/27/22 19:18 [place] % (Auto) 5.1 % 09/27/22 19:18 Eos % (Auto) 1.8 % 09/27/22 19:18 Baso % (Auto) 0.4 % 09/27/22 19:18 Neut # (Auto) 18.09 10^3/uL (1.8-7.7) H 09/27/22 19:18 Lymph # (Auto) 1.5 10^3/uL (0.8-4.8) 09/27/22 19:18 [place] # (Auto) 1.1 10^3/uL (0.2-0.9) H 09/27/22 19:18 Eos # (Auto) 0.4 10^3/uL (0.0-0.8) 09/27/22 19:18 Baso # (Auto) 0.1 10^3/uL (0.0-0.1) 09/27/22 19:18 Nucleated RBC % (auto) 0 % 09/27/22 19:18 Nucleated RBCs # 0.0 /100WBC 09/27/22 19:18 Specimen Type Venous 09/27/22 18:15 Sample Site Radial, right 09/27/22 18:15 Mickey Test Pos 09/27/22 18:15 VBG pH 7.22 (7.32-7.42) L 09/27/22 18:15 VBG pCO2 89.2 mmHg (41-51) H* 09/27/22 18:15 VBG pO2 29.7 mmHg (25-40) 09/27/22 18:15 VBG HCO3 36.7 mmol/L (24-28) H 09/27/22 18:15 VBG Base Excess 6.2 mmol/L (-3.0-3.0) H 09/27/22 18:15 VBG Hematocrit 36.9 % (42-52) L 09/27/22 18:15 O2 Delivery Device Nc 09/27/22 18:15 O2 Liters/Min 2.0 % 09/27/22 18:15 FiO2 28.0 % 09/27/22 18:15 Ornamental Plasterer Helper ID Marianelaro 09/27/22 18:15 Sodium 131 mmol/L (136-145) L 09/27/22 19:18 Potassium 4.9 mmol/L (3.5-5.1) 09/27/22 19:18 Chloride 89 mmol/L (98-107) L 09/27/22 19:18 Carbon Dioxide 30 mmol/L (22-29) H 09/27/22 19:18 Anion Gap 16.9 (5-19) 09/27/22 19:18 BUN 63 mg/dL (8-23) H 09/27/22 19:18 Creatinine 7.1 mg/dL (0.7-1.2) H* 09/27/22 19:18 GFR Calculation 7.7 mL/min (90-130) L 09/27/22 19:18 Glucose 39 mg/dL (65-115) L* 09/27/22 19:18 POC Glucose 33 mg/dL (70-110) L* 09/27/22 19:58 Calculated Osmolality 287 mOsm/kg (285-295) 09/27/22 19:18 Lactic Acid 0.6 mmol/L (0.5-2.2) 09/27/22 21:13 Uric Acid 5.3 mg/dL (3.4-7.0) 09/27/22 19:18 Calcium 9.3 mg/dL (8.5-10.5) 09/27/22 19:18 Phosphorus 5.7 mg/dL (2.5-4.5) H 09/27/22 19:18 Magnesium 2.2 mg/dL (1.7-2.3) 09/27/22 19:18 Total Bilirubin 0.3 mg/dL (0.15-1.2) 09/27/22 19:18 AST 20 U/L (0-40) 09/27/22 19:18 ALT 12 U/L (0-41) 09/27/22 19:18 Alkaline Phosphatase 109 U/L (40-130) 09/27/22 19:18 Ammonia 73 umol/L (16-60) H 09/27/22 19:18 Total Protein 7.8 g/dL (6.6-8.7) 09/27/22 19:18 Albumin 3.7 g/dL (3.5-5.2) 09/27/22 19:18 Globulin 4.1 g/dL (1.3-4.6) 09/27/22 19:18 EKG Data EKG 1: I personally reviewed and interpreted this EKG as follows: EKG interpretation date: 09/27/22 EKG interpretation time: 20:29 Prior EKG tracings: not available for review Interpretation: EKG showed ventricular rate of 66 bpm, QRS duration 86, QTc 449, atrial flutter, tachycardia with aberrant conduction or ventricular premature complexes, septal myocardial infarction, probably old with Q waves in V1 V2 Discharge Plan Discharge Patient Disposition: Admitted As Inpatient Clinical Impression: Altered mental status, Hypoglycemia, Acute respiratory failure with hypoxia and hypercapnia, Pneumonia due to COVID-19 virus, Serum ammonia increased, Chronic kidney disease with end stage renal failure on dialysis Condition: Stable Prescriptions: No Action (DME) FreeStyle Christopher 2 Sensor Kit See Rx Instructions .Route Qty: 1 0RF Rx Instructions: As directed. He is checking sugars 5x daily and having difficulty with obtaining blood. [place] [place] nebulizers Misc See Rx Instructions .Route Qty: 1 0RF Rx Instructions: As directed. Please include Nebulizer, tubing and mask. baclofen 5 mg tablet 5 mg PO DAILY PRN (Reason: Leg cramps, muscle spasm) Qty: 30 1RF (DME) Cam Walker See Rx Instructions .ROUTE .MEDSUPPLY Qty: 1 0RF Rx Instructions: As directed [place] [place] Diabetic shoes with 3 pairs of inserts See Rx Instructions .Route .MEDSUPPLY Qty: 1 0RF Rx Instructions: As directed by [facility]AN[facility] [place] [place] comp.stocking,knee,long,medium Misc See Rx Instructions .Route Qty: 12 0RF Rx Instructions: As directed. Wear when up. May take off to shower or lie in bed. [place] [place] pen needle, diabetic [TechLITE Pen Needle] 31 gauge x 5/16 needle See Rx Instructions .ROUTE .MEDSUPPLY Qty: 200 11RF Rx Instructions: As directed [place] [place] Blood Glucose Test Strip See Rx Instructions .ROUTE .MEDSUPPLY Qty: 300 3RF Rx Instructions: TEST THREE TIMES DAILY [place] [place] pen needle, diabetic [TechLITE Pen Needle] 31 gauge x 5/16 needle See Rx Instructions .ROUTE .MEDSUPPLY Qty: 100 11RF Rx Instructions: two times daily atorvastatin 40 mg tablet 40 mg PO BEDTIME diphenhydramine HCl [Benadryl] 25 mg Capsule 50 mg PO Q4H PRN (Reason: Itching) sevelamer carbonate [Renvela] 800 mg tablet 1,600 mg PO TID promethazine 25 mg tablet 25 mg PO Q6H PRN (Reason: Nausea) gabapentin 300 mg capsule 300 mg PO DAILY hydrocodone-acetaminophen 5-325 mg Tablet 0.5 tab PO Q6H PRN (Reason: Pain) hydrocodone-acetaminophen 5-325 mg Tablet 1 tab PO Q6H PRN (Reason: Pain) Renal Caps 1 mg Capsule 1 cap PO DAILY Velphoro 500 mg Tablet,Chewable 500 mg PO TID Paxlovid (EUA) 150-100 mg Tablets,Dose Pack 1 ea PO . DIRECTED albuterol sulfate 2.5 mg /3 mL (0.083 %) solution for nebulization 2.5 mg inhalation Q4H PRN (Reason: shortness of breath or wheezing) Novolog FlexPen U-100 Insulin 100 unit/mL (3 mL) insulin pen See Rx Instructions .ROUTE .COMPLEX Rx Instructions: PER SLIDING SCALE midodrine 5 mg Tablet 5 mg PO BID Rx Instructions: do not give last dose of day after 6PM or within 4 hrs of bedtime melatonin 3 mg Tablet 3 mg PO BEDTIME guaifenesin [Robitussin] 100 mg/5 mL Liquid 200 mg PO Q4H PRN (Reason: Cough) loperamide-simethicone 2-125 mg Tablet 1 tab PO Q24H PRN (Reason: Gastric Reflux) fluticasone propionate [Flonase] 50 mcg/actuation [place],Suspension 1 spray INTRANASAL BID Rx Instructions: administer into each nostril loratadine [Claritin] 10 mg Tablet 10 mg PO DAILY calcium carbonate 1,000 mg Tablet 1,000 mg PO BEDTIME bismuth subsalicylate 525 mg/15 mL Suspension 525 mg PO Q24H PRN (Reason: Diarrhea) Rx Instructions: do not exceed 8 doses in a 24 hour period Natural Balance Tears 0.1-0.3 % Drops 2 drp OPHTHALMIC (EYE) Q4H PRN (Reason: Dry Eyes) Eliquis 5 mg Tablet 5 mg PO BID Rx Instructions: ON HOLD PER PHYSICIAN Lokelma 10 gram Powder In Packet See Rx Instructions .ROUTE .COMPLEX Rx Instructions: 10 g orally Mon, Wed, Fri, Sun temazepam 15 mg capsule 7.5 mg PO BEDTIME insulin glargine [Lantus Solostar U-100 Insulin] 100 unit/mL (3 mL) insulin pen 56 unit SUBCUT BID acetaminophen [Tylenol] 325 mg Tablet 650 mg PO Q6H PRN (Reason: Pain) cholecalciferol (vitamin D3) [Vitamin D3] 25 mcg (1,000 unit) Capsule 25 mcg PO DAILY Referrals: Allen Ackerman DO [Primary Care Provider] - Coding Level of Care Code ED 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
[2022-09-27 18:36] LABS: Base Excess VBG 6.2 mmol/L (-3.0-3.0); Blood Gas Allen Test Pos; Blood Gas Operator Identificat MONRO; Blood Gas Sample Site Radial, right; Blood Gas Sample Type Venous; HCO3 VBG 36.7 mmol/L (24-28); Oxygen Device NC; PO2 VBG 29.7 mmHg (25-40); Venous Blood Gas Hematocrit 36.9 % (42-52); pH VBG 7.22 (7.32-7.42)
[2022-09-27 18:37] LABS: PCO2 VBG 89.2 mmHg (41-51)
[2022-09-27 19:23] LABS: Basophils # 0.1 10^3/uL (0.0-0.1); Basophils % 0.4 %; Eosinophils # 0.4 10^3/uL (0.0-0.8); Eosinophils % 1.8 %; Hematocrit 38.8 % (42.0-52.0); Hemoglobin 11.6 g/dL (11.7-16.6); Lymphocytes # 1.5 10^3/uL (0.8-4.8); Lymphocytes % 6.9 %; Mean Corpuscular HGB Conc 29.9 g/dL (30.0-36.0); Mean Corpuscular Hemoglobin 30.2 pg (28.0-34.0); Mean Platelet Volume 10.1 fL (7.4-10.4); Monocytes # 1.1 10^3/uL (0.2-0.9); Monocytes % 5.1 %; Neutrophils # 18.09 10^3/uL (1.8-7.7); Nucleated Red Blood Cells % 0 %; Platelet Count 254 10^3/cmm (130-400); Red Blood Count 3.84 10^6/uL (4.1-5.3); Red Cell Distribution Width 14.3 % (12.1-15.1); White Blood Count 21.3 10^3/uL (4.0-10.0)
[2022-09-27 19:43] LABS: Alanine Aminotransferase 12 U/L (0-41); Albumin Level 3.7 g/dL (3.5-5.2); Alkaline Phosphatase 109 U/L (40-130); Blood Urea Nitrogen 63 mg/dL (8-23); Calcium 9.3 mg/dL (8.5-10.5); Carbon Dioxide 30 mmol/L (22-29); Chloride 89 mmol/L (98-107); Globulin 4.1 g/dL (1.3-4.6); Glomerular Filtration Rate 7.7 mL/min (90-130); Magnesium 2.2 mg/dL (1.7-2.3); Osmolality Calculated 287 mOsm/kg (285-295); Phosphorus 5.7 mg/dL (2.5-4.5); Sodium 131 mmol/L (136-145); Total Bilirubin 0.3 mg/dL (0.15-1.2); Total Protein 7.8 g/dL (6.6-8.7); Uric Acid 5.3 mg/dL (3.4-7.0)
[2022-09-27 19:44] LABS: Ammonia 73 umol/L (16-60)
[2022-09-27 19:50] LABS: Anion Gap 16.9 (5-19); Potassium 4.9 mmol/L (3.5-5.1)
[2022-09-27 19:51] LABS: Aspartate Amino Transferase 20 U/L (0-40)
[2022-09-27 19:52] LABS: Glucose 39 mg/dL (65-115)
[2022-09-27 20:02] LABS: Glucose Point of Care 33 mg/dL (70-110)
[2022-09-27] MEDS: glucose 40% Gel 15 gm UDC PO (20:40)
--- NOTE | 2022-09-27 21:06 | CTR_ITS ---
PROCEDURE INFORMATION: Exam: CT Chest Without Contrast; Diagnostic Exam date and time: 09/27/2022 9:52 PM Age: 66 years old Clinical indication: Abnormal findings; Abnormal lab test; Elevated wbc; Other: N/a; Prior surgery; Surgery type: Gb. Hernia repair. Appy. Patient HX: Severe lethargy. Wbc of 21k. Covid +. History of end stage renal disease. ; Additional info: Altered mental status, resp failure, elevated ammonia, leuko TECHNIQUE: Imaging protocol: Diagnostic computed tomography of the chest without contrast. Radiation optimization: All CT scans at this facility use at least one of these dose optimization techniques: automated exposure control; mA and/or kV adjustment per patient size (includes targeted exams where dose is matched to clinical indication); or iterative reconstruction. REPORTING DATA: Count of CT and Cardiac NM exams in prior 12 months: This patient has received 2 known CTs and 0 known cardiac nuclear medicine studies in the 12 months prior to the current study. COMPARISON: CR (CHEST, ) 09/27/2022 5:39 PM RADIATION DOSE METRICS: Total DLP (mGy-cm): 1694.15 FINDINGS: Lungs: Patchy bilateral largely lower lobe airspace infiltrates. Pleural spaces: Unremarkable. No pneumothorax. No pleural effusion. Heart: Cardiomegaly. Coronary arteries: Coronary artery atherosclerotic calcifications. Lymph nodes: Scattered prominent mediastinal lymph nodes measuring up to 21 mm, nonspecific. Vasculature: Unremarkable. No aortic aneurysm. Bones/joints: Unremarkable. No acute fracture. Soft tissues: Unremarkable. PROCEDURE INFORMATION: Exam: CT Abdomen And Pelvis Without Contrast Exam date and time: 09/27/2022 9:52 PM Age: 66 years old Clinical indication: Abnormal findings; Abnormal lab test; Elevated wbc; Other: N/a; Prior surgery; Surgery type: Gb. Hernia repair. Appy. Patient HX: Severe lethargy. Wbc of 21k. Covid +. History of end stage renal disease. ; Additional info: Altered mental status, resp failure, elevated ammonia, leuko TECHNIQUE: Imaging protocol: Computed tomography of the abdomen and pelvis without contrast. Radiation optimization: All CT scans at this facility use at least one of these dose optimization techniques: automated exposure control; mA and/or kV adjustment per patient size (includes targeted exams where dose is matched to clinical indication); or iterative reconstruction. REPORTING DATA: Count of CT and Cardiac NM exams in prior 12 months: This patient has received 2 known CTs and 0 known cardiac nuclear medicine studies in the 12 months prior to the current study. COMPARISON: CT abdomen pelvis wo con [id number] 07/01/2022 6:22 AM RADIATION DOSE METRICS: Total DLP (mGy-cm): 1694.15 FINDINGS: Liver: Cirrhotic liver suspected. Several hepatic cysts. Gallbladder and bile ducts: Cholecystectomy. Pancreas: Normal. No ductal dilation. Spleen: Spleen enlarged at 13 cm. Adrenal glands: Normal. No mass. Kidneys and ureters: Bilateral chronic appearing renal atrophy. Stomach and bowel: Unremarkable. No obstruction. No mucosal thickening. Appendix: No evidence of appendicitis. Intraperitoneal space: Unremarkable. No free air. No significant fluid collection. Vasculature: Unremarkable. No abdominal aortic aneurysm. Lymph nodes: Unremarkable. No enlarged lymph nodes. Urinary bladder: Unremarkable as visualized. Reproductive: Unremarkable as visualized. Bones/joints: Unremarkable. No acute fracture. Soft tissues: Unremarkable. CT/[place] [id number] IMPRESSION: 1. Patchy bilateral largely lower lobe airspace infiltrates. 2. Coronary artery atherosclerotic calcifications. 3. Cardiomegaly. 4. Scattered prominent mediastinal lymph nodes measuring up to 21 mm, nonspecific. IMPRESSION: 1. Negative for focal acute inflammatory process in the abdomen or pelvis. 2. Cirrhotic liver suspected. 3. Several hepatic cysts. 4. Spleen enlarged at 13 cm. 5. Cholecystectomy. 6. Bilateral chronic appearing renal atrophy.
--- NOTE | 2022-09-27 21:06 | CTR_ITS ---
PROCEDURE INFORMATION: Exam: CT Head Without Contrast Exam date and time: 09/27/2022 9:50 PM Age: 66 years old Clinical indication: Altered mental status/memory loss; Patient HX: Severe lethargy. TECHNIQUE: Imaging protocol: Computed tomography of the head without contrast. Radiation optimization: All CT scans at this facility use at least one of these dose optimization techniques: automated exposure control; mA and/or kV adjustment per patient size (includes targeted exams where dose is matched to clinical indication); or iterative reconstruction. REPORTING DATA: Count of CT and Cardiac NM exams in prior 12 months: This patient has received 2 known CTs and 0 known cardiac nuclear medicine studies in the 12 months prior to the current study. COMPARISON: MR head wo con* [id number] 08/14/2021 5:22 PM RADIATION DOSE METRICS: Total DLP (mGy-cm): 1338.7 FINDINGS: Brain: Moderate diffuse cortical volume loss. Moderate hypodensities in supratentorial periventricular and subcortical white matter, consistent with microangiopathy. No intracranial hemorrhage. Cerebral ventricles: No ventriculomegaly. Paranasal sinuses: Visualized sinuses are unremarkable. No fluid levels. Mastoid air cells: Visualized mastoid air cells are well aerated. Orbital cavities: Prior cataract surgery. Bones/joints: Unremarkable. No acute fracture. Soft tissues: Unremarkable. Vasculature: No hyperdense artery. CT/CT head wo con* [id number] IMPRESSION: 1. No acute intracranial abnormality. 2. Moderate chronic microangiopathy.
[2022-09-27] MEDS: LORazepam 2 mg/mL INJ 1 mL IVP (21:48)
[2022-09-27 22:26] LABS: Lactic Sepsis W/Reflex 0.6 mmol/L (0.5-2.2)
--- NOTE | 2022-09-27 22:54 | P.HP_ITS ---
Providers/Chief Complaint Primary Care Provider: Allen Ackerman DO Chief Complaint: DECREASED LOC/ COVID + History of Present Illness Bigg Rivera is a 66 year old male with history of end-stage renal disease, nursing or resident, has fistula in both arms, poor quality of life, presented today with chief complaint of generalized weakness, altered mental status, low blood sugar. At the skilled nursing his blood sugar was 130 EMS gave him dextrose, and skilled nursing gave him glucagon despite all that his blood sugar only goes up to 80, he remained stuporous, not able to follow commands at all he was put on BiPAP for metabolic acidosis. We unfortunately cannot obtain ABG hence VBG showed hypercapnic respiratory failure along hypoxia, goals of care discussed with patient's , she told us about DNI/DNI status on previous admissions he was listed as DNR/DNI as well. She did not allow us to place a central line to correct hypoglycemia with D10 continuous IV fluids, is stating that Mr. Rivera has been sick for last 1 to 2 weeks, he has been experiencing cough and wheezing that prompted skilled nursing to do COVID test last Tuesday which was positive. He was put on Paxlovid but his symptoms worsened. Mr. Rivera spoke to his about stopping dialysis and knowing the consequences that he could he was aware of poor quality of life. He is wheelchair-bound dependent on daily activities. Because of poor quality of life acute changes mentation with limited options to resuscitate him, has asked us to start comfort measures she does not want us to place a central line at all, patient is DNR/DNI, family meeting was conducted in detail, RT updated, washhouse hand updated patient does not need ICU at this point Most of the information has been taken from the , patient not able to open eyes and follow commands, Imagings impression was shared with the , he does have superimposed bacterial pneumonia on top of viral pneumonia Liver cirrhosis Hepatosplenomegaly Review of Systems General: Reports: ROS unobtainable due to mental status Medications/Allergies Home Medications Medication Instructions Recorded Confirmed Last Taken Type atorvastatin 40 mg tablet 40 mg PO BEDTIME 06/30/19 09/27/22 09/26/22 History diphenhydramine HCl 25 mg capsule 50 mg PO Q4H PRN Itching 06/30/19 09/27/22 07/02/19 03:00 History (Benadryl) sevelamer carbonate 800 mg tablet 1,600 mg PO TID 06/30/19 09/27/22 09/26/22 History (Renvela) pen needle, diabetic 31 gauge x #200 ea 06/06/20 09/27/22 Unknown Rx 5/16 (TechLITE Pen Needle) blood sugar diagnostic (Blood #300 ea 09/02/20 09/27/22 Unknown Rx Glucose Test strips) Cam Walker #1 ea 09/19/20 09/27/22 Unknown Rx Diabetic shoes with 3 pairs of #1 ea 10/06/20 09/27/22 Unknown Rx inserts pen needle, diabetic 31 gauge x #100 ea 06/11/21 09/27/22 Unknown Rx 5/16 (TechLITE Pen Needle) baclofen 5 mg tablet 5 mg PO DAILY PRN Leg cramps, 08/06/21 09/27/22 Unknown Rx muscle spasm #30 tabs flash glucose sensor (FreeStyle #1 ea 08/06/21 09/27/22 Unknown Rx Christopher 2 Sensor kit) nebulizers #1 ea 08/06/21 09/27/22 Unknown Rx gabapentin 300 mg capsule 300 mg PO DAILY 08/14/21 09/27/22 09/27/22 History promethazine 25 mg tablet 25 mg PO Q6H PRN Nausea 08/14/21 09/27/22 Unknown History comp.stocking,knee,long,medium #12 ea 08/25/21 09/27/22 Unknown Rx acetaminophen 325 mg tablet 650 mg PO Q6H PRN Pain 07/01/22 09/27/22 Unknown History (Tylenol) apixaban 5 mg tablet (Eliquis) 5 mg PO BID 07/01/22 09/27/22 09/26/22 History bismuth subsalicylate 525 mg/15 mL 525 mg PO Q24H PRN Diarrhea 07/01/22 09/27/22 Unknown History oral suspension calcium carbonate 1,000 mg tablet 1,000 mg PO BEDTIME 07/01/22 09/27/22 09/26/22 History cholecalciferol (vitamin D3) 25 25 mcg PO DAILY 07/01/22 09/27/22 09/27/22 History mcg (1,000 unit) capsule (Vitamin D3) dextran 70-hypromellose 0.1 %-0.3 2 drp ophthalmic (eye) Q4H PRN Dry 07/01/22 09/27/22 Unknown History % eye drops Eyes fluticasone propionate 50 1 spray intranasal BID 07/01/22 09/27/22 09/27/22 History mcg/actuation nasal spray,suspension guaifenesin 100 mg/5 mL oral liquid 200 mg PO Q4H PRN Cough 07/01/22 09/27/22 09/26/22 History insulin glargine 100 unit/mL (3 56 unit SUBCUT BID 07/01/22 09/27/22 09/27/22 History mL) subcutaneous pen (Lantus Solostar U-100 Insulin) loperamide-simethicone 2 mg-125 mg 1 tab PO Q24H PRN Gastric Reflux 07/01/22 09/27/22 Unknown History tablet loratadine 10 mg tablet (Claritin) 10 mg PO DAILY 07/01/22 09/27/22 09/27/22 History melatonin 3 mg tablet 3 mg PO BEDTIME 07/01/22 09/27/22 09/26/22 History midodrine 5 mg tablet 5 mg PO BID 07/01/22 09/27/22 09/27/22 History sodium zirconium cyclosilicate 10 See Rx Instructions .Route .COMPLEX 07/01/22 09/27/22 09/27/22 History gram oral powder packet (Lokelma) temazepam 15 mg capsule 7.5 mg PO BEDTIME 07/01/22 09/27/22 09/26/22 History albuterol sulfate 2.5 mg/3 mL 2.5 mg inhalation Q4H PRN 09/27/22 09/27/22 Unknown History (0.083 %) solution for nebulization shortness of breath or wheezing hydrocodone 5 mg-acetaminophen 325 0.5 tab PO Q6H PRN Pain 09/27/22 09/27/22 Unknown History mg tablet hydrocodone 5 mg-acetaminophen 325 1 tab PO Q6H PRN Pain 09/27/22 09/27/22 Unknown History mg tablet insulin aspart U-100 100 unit/mL See Rx Instructions .Route .COMPLEX 09/27/22 09/27/22 Unknown History (3 mL) subcutaneous pen (Novolog FlexPen U-100 Insulin aspart) nirmatrelvir 150 mg-ritonavir 100 1 ea PO . DIRECTED 09/27/22 09/27/22 Unknown History mg tablets in a dose pack (EUA) (Paxlovid) sucroferric oxyhydroxide 500 mg 500 mg PO TID 09/27/22 09/27/22 09/27/22 History chewable tablet (Velphoro) vitamin B complex and vitamin C 1 cap PO DAILY 09/27/22 09/27/22 09/26/22 History no.20-folic acid 1 mg capsule (Renal Caps) Allergies Allergy/AdvReac Type Severity Reaction Status Date / Time COVID-19 (SARS-CoV-2) Allergy ALGY-Anaphy Verified 12/05/21 17:21 vaccine, conchita laxis PFSH Acute PFSH: Medical History Anemia Atrial fibrillation Bradycardia Calciphylaxis COPD (chronic obstructive pulmonary disease) Coronary artery disease COVID-19 CVA (cerebral vascular accident) Diabetes mellitus Diabetes mellitus, with long-term current use of insulin Diabetic peripheral neuropathy associated with type 2 diabetes mellitus Dyslipidemia End stage renal disease on dialysis Gout Hyperphosphatemia Hypertension Mixed dyslipidemia Neuropathy Obstructive sleep apnea Onychodystrophy Pure hypercholesterolemia PVD (peripheral vascular disease) Surgical History H/O hernia repair Ventral History of appendectomy Hx of cholecystectomy S/P removal of parathyroid gland Family History Father No problems noted. Other Cancer Diabetes Denies family history of CAD (coronary artery disease) Clotting disorder Dementia Hyperlipidemia Psychiatric illness Chronic kidney disease (CKD) Suicide Anesthesia complication Bleeding disorder Family history of premature coronary artery disease Lung disease Hypertension Stroke Social History Smoking and tobacco status: never smoked Alcohol intake: never Vitals/I&O/Wt Last Vital Signs Temp 98.4 F 09/27/22 17:19 Pulse 54 L 09/27/22 19:00 Resp 22 H 09/27/22 19:00 BP 127/49 09/27/22 19:00 Pulse Ox 97 09/27/22 19:48 O2 Del Method 09/27/22 18:35 O2 Flow Rate 2 09/27/22 18:29 FiO2 28 09/27/22 19:48 Weight last 48 hrs Weight 101.151 kg Physical Exam Narrative: Patient is obtunded Currently on BiPAP is at the bedside Looks fluid overloaded Venous stasis dermatitis Abdomen distended BiPAP 28% Not able to open eyes to painful stimuli Patient does move his extremities on and off Nonpurposeful movement Neuro exam is limited Bilateral breath sounds with rhonchi Bradycardia Hypertensive Data 09/27/22 19:18 09/27/22 19:18 Micro: Microbiology 09/27/22 21:10 Blood Culture - Preliminary Blood SPECIMEN COLLECTED 09/27/22 21:10 Blood Culture - Preliminary Blood SPECIMEN COLLECTED A&P Assessment and plan (1) Altered mental status: Qualifiers: Altered mental status type: somnolence Qualified Code(s): R40.0 - Somnolence (2) Hypoglycemia: (3) Acute respiratory failure with hypoxia and hypercapnia: (4) Pneumonia due to COVID-19 virus: (5) Hepatic encephalopathy: (6) Hypoglycemia associated with type 2 diabetes mellitus: (7) Leg swelling: (8) Bradycardia: (9) Heart block: (10) COPD (chronic obstructive pulmonary disease): (11) Obstructive sleep apnea: (12) Comfort measures only status: Plan Acute on chronic hypoxia Hypercapnic respiratory failure Due to underlying superimposed bacterial pneumonia with COVID Initial plan was to start remdesivir and Decadron, Patient is currently on BiPAP Obtunded Not in ideal candidate to be on BiPAP however he is DNI/DNI, has decided not to place a central line Family meeting conducted Patient is comfort care now Hypoglycemia D10 was requested, blood sugar persistently low despite dextrose and glucagon is not allowing us to place a central line to start D10 currently on comfort measures Goals of care discussed with the family Hepatic encephalopathy Liver cirrhosis with hepatosplenomegaly End-stage renal disease Tuesday session was shortened because of patient poor tolerance Patient has 2 fistulas Right arm fistula is nonfunctional Comfort measures DNR/DNI N.p.o. Poor prognosis supervisor home energy consultant updated, RT updated Attestations Medical Necessity Statement*: More than 2 midnights anticipated Diagnoses Altered mental status R40.0 Altered mental status type: somnolence Hypoglycemia E16.2 Acute respiratory failure with hypoxia and hypercapnia J96.01; J96.02 Pneumonia due to COVID-19 virus U07.1; J12.82 Hepatic encephalopathy K76.82 Hypoglycemia associated with type 2 diabetes mellitus E11.649 Leg swelling M79.89 Bradycardia R00.1 Heart block I45.9 COPD (chronic obstructive pulmonary disease) J44.9 Obstructive sleep apnea G47.33 Comfort measures only status Z51.5
[2022-09-27 23:28] LABS: Glucose Point of Care 42 mg/dL (70-110)
[2022-09-27 23:28] LABS: D Dimer 1.23 ug/mIFEU (0-0.59)
[2022-09-27 23:30] LABS: ABG PH Result 7.22 (7.35-7.45); Arterial Blood Gas Hematocrit 37.9 % (42-52); Base Excess ABG 3.3 mmol/L (-2.0-2.0); Blood Gas Allen Test Pos; Blood Gas Sample Site Radial, right; Blood Gas Sample Type Venous; HCO3 ABG 33.5 mmol/L (22-26); Oxygen Device BIPAP; PO2 ABG 46.6 mmHg (80.0-100.0)
[2022-09-28] VITALS (12 sets, daily range): BP systolic 94–147; BP diastolic 48–112; PULSE 42–110; RESP 14–24; TEMP 36.4–37; O2SAT 88–100; BMI 43.6
--- NOTE | 2022-09-28 01:07 | ECG_ITS ---
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 Measurements Intervals [place] Rate: 66 P: 0 OR: 0 QRS: 32 QRSD: 86 T: 80 QT: 436 QTc: 458 Interpretive Statements SUPRAVENTRICULAR RHYTHM SEPTAL MYOCARDIAL INFARCTION , PROBABLY OLD [40+ ms Q WAVE IN V1/V2] Compared to ECG 07/01/2022 06:06:19 Aberrant conduction of supraventricular beat(s) now present Low QRS voltage now present Myocardial infarct finding still present Electronically Signed On 09-28-2022 11:55:58 CDT by Nadir Castaneda M.D. [email or web address]
--- NOTE | 2022-09-28 01:18 | PC.NURSE ---
Domi refused Vizcarra catheter placement, stating that the patient does not produce urine as a dialysis patient, and verbalized he would be the most upset with me if I allowed you guys to do that to him. Dr Martinez was notified of 's refusal of Vizcarra catheter placement. No new orders received at this time.
--- NOTE | 2022-09-28 01:19 | PC.NURSE ---
Patient A&Ox0, unable to make any statements. Patient was sternal rubbed with no reaction. However, when nurse asked patient to perform hand computing services director, patient was able to perform hand computing services director with left hand but not the right. When nurse looked into patient's eyes, patient moaned and squeezed eyes shut. Anterior lungs auscultated coarse bilaterally and on Bipap at this time. Heart sounds distant. Bowel sounds hypoactive in all four quadrants. stated that patient maybe incontinent of stool, but stated that he did not produce any urine; Domi refused Vizcarra catheter placement, and Dr Martinez was notified. Bilateral lower extremities red, edematous 2+, and blistered. Capillary refill in bilateral feet greater than 3 seconds. No skin breakdown noted on heels of feet or folds of skin. Domi remains at bedside and has repeatedly verbalized that she only wishes to keep her comfortable at this time, and states that she is his medical power of employee benefits attorney. Patient remains resting in bed, two side rails up, call light within reach and Domi at bedside.
[2022-09-28 01:40] LABS: Glucose Point of Care 50 mg/dL (70-110)
--- NOTE | 2022-09-28 01:41 | PC.NURSE ---
Domi refused placing patient in gown or repositioning patient at this time. was given call light and instructed to use call light if she needed or wanted anything, and verbalized understanding.
--- NOTE | 2022-09-28 06:04 | PC.NURSE ---
Discussion occurred between primary nurse and family member, assumed son, regarding patient wearing Bipap and patient comfort. Son informed nurse that patient was becoming more restless and was pulling at Bipap, and asked what would happen if he removed Bipap. Nurse informed patient that O2 saturations would decrease and educated that the goal of stay in hospital was for comfort measures. Nurse also educated son that it was important to keep patient comfortable, regardless if he wants Bipap or not, and to not prevent patient from removing it if he wished. Nurse also offered to administer sublingual Roxanol, but son declined at time of offer and stated that he would mention it to patient's spouse. Son requested to speak with rounding doctor regarding patient comfort and plan regarding patient comfort.
[2022-09-28] MEDS: morphine 10 mg/0.5 mL oral liq UD SUBLINGUAL (06:57)
[2022-09-28 09:04] LABS: Glucose Point of Care 33 mg/dL (70-110)
[2022-09-28 09:04] LABS: Glucose Point of Care 27 mg/dL (70-110)
[2022-09-28 09:04] LABS: Glucose Point of Care 90 mg/dL (70-110)
[2022-09-28 09:49] LABS: Glucose Point of Care 26 mg/dL (70-110)
--- NOTE | 2022-09-28 10:04 | PM.PN ---
Subjective Subjective: H&P and labs appreciated. Admitted overnight. On examination today patient laying comfortably in bed on 2 L nasal cannula. Patient is drowsy. Wakes up to have conversation. On waking up he is AO x2-3 but dozes off during conversation. Patient's son at bedside. Had a detailed discussion about goals of care with patient's son with patient's RN and charge nurse at bedside. Discussion with the patient's son at the bedside regarding goals of care. We discussed currently patient is on comfort measures status which would mean that we will not treat him actively for any pathology but 1 of make sure that he remains comfortable while we will let nature takes its own course which would mean that he would . Son inquired about other possible modalities. He stated he did have a detailed discussion with patient's /DPOA earlier today morning with charge nurse at bedside. We discussed the option would be to treat patient medically while keeping him DNR/DNI and if the blood pressures dropped to treat him with possible central line and pressors versus treat him medically with antibiotics and dialysis and if and when blood pressures drop if oral medications do not help at that point instead of doing pressors and transferring to ICU transition to comfort measures. As per the son he has discussed with patient's /DPOA today morning and they would want to go ahead with DNR/DNI, treatment and dialysis but without pressors and central line if and when needed. Goals of care change in the chart. Patient started on treatment. During the day patient had multiple episodes of hypoglycemia for which he required pushes of D50 along with glucagon. Patient had poor IV access for which consent for midline/PICC line is being awaited. We discussed need for midline to reduce the number of pokes to get blood work during hospitalization. Son is agreeable but want to confirm with patient's . Otherwise has remained hemodynamically stable on 2 L oxygen supplementation. Mentation improved after getting D50. Continues to remain bradycardic. Vitals/I&O/Wt Last Vital Signs Temp 98.4 F 09/27/22 17:19 Pulse 44 L 09/28/22 08:20 Resp 20 H 09/28/22 08:20 BP 94/48 09/28/22 08:20 Pulse Ox 100 09/28/22 08:20 O2 Del Method 09/28/22 08:04 O2 Flow Rate 2 09/28/22 08:04 FiO2 35 09/28/22 03:25 09/27/22 09/28/22 09/28/22 22:59 06:59 14:59 Intake Total 0 / 0 50 / 50 Balance 0 / 0 50 / 50 Weight last 48 hrs Weight 130.181 kg Weight 101.151 kg Physical Exam Narrative: General: No acute distress, drowsy, dozing off during examination, AO x2 3, chronically sick appearing, on nasal cannula HEENT: PERRLA, pupils bilaterally equal and reactive Chest: Bilateral bronchial breath sounds all over lung vann with occasional coarse crackles and rhonchi CVS: S1-S2 regular, no murmurs, no tachycardia, no gallops, no rubs Abdomen: Soft, nontender, no organomegaly, bowel sounds present, morbidly obese Neuro: No focal deficits, no facial deformity, moving all limbs, weak Data 09/27/22 19:18 09/27/22 19:18 Micro: Microbiology 09/27/22 21:10 Blood Culture - Preliminary Blood SPECIMEN COLLECTED 09/27/22 21:10 Blood Culture - Preliminary Blood SPECIMEN COLLECTED A&P Assessment and plan (1) Sepsis: Present on admission. Ruled in with leukocytosis, bradycardia. Target organ dysfunction with altered mental status and recurrent hypoglycemia. Source of infection most likely pneumonia in setting of COVID-19 Check blood culture, urine culture, MRSA swab, procalcitonin, urine Legionella, bacterial antigen. Check sputum culture. Empirically for now start on vancomycin and Zosyn. Will de-escalate as per culture results. Keep mean artery pressure 65. Continue with home midodrine. Will increase dose to 10 mg 3 times daily. (2) Acute respiratory failure with hypoxia and hypercapnia: Insetting of COPD exacerbation obstructive sleep apnea secondary to pneumonia from COVID-19. Repeat ABG. BiPAP nightly oral and resting. Oxygen supplementation keeping saturation over 88%. DuoNebs every 6 hours, budesonide twice daily. (3) Pneumonia due to COVID-19 virus: Treatment as above. Pulmonary toilet with incentive spirometry and flutter valve. For now start on hydrocortisone 50 mg every 6 hourly. Which would also help with recurrent hypoglycemia. (4) Altered mental status: Most likely in setting of sepsis along with recurrent hypoglycemia and and mild hepatic encephalopathy with elevated ammonia levels. CT head negative for acute abnormality on admission. Frequent reorientation. Qualifiers: Altered mental status type: somnolence Qualified Code(s): R40.0 - Somnolence (5) Hypoglycemia associated with type 2 diabetes mellitus: Check cortisol levels. Most likely in setting of sepsis. Hold off on sliding scale and Lantus. Blood sugar checks every 2 hours. Hypoglycemia protocol. If needed will start patient on D5W but holding off given history of end-stage renal disease with high concerns for possible congestive heart failure (6) End stage renal disease on dialysis: Monitor BMP. Medical reconciliation done for nephrotoxic drugs. Nephrology consulted for dialysis. (7) Bradycardia: Telemetry. Not on any rate limiting drugs. Continue to monitor. (8) Hepatic encephalopathy: (9) Leg swelling: (10) COPD (chronic obstructive pulmonary disease): (11) Obstructive sleep apnea: (12) Comfort measures only status: Goals of care changed as per discussion below. (13) Goals of care, counseling/discussion: Had a detailed discussion about goals of care with patient's son with patient's RN and charge nurse at bedside. Discussion with the patient's son at the bedside regarding goals of care. We discussed currently patient is on comfort measures status which would mean that we will not treat him actively for any pathology but 1 of make sure that he remains comfortable while we will let nature takes its own course which would mean that he would . Son inquired about other possible modalities. He stated he did have a detailed discussion with patient's /DPOA earlier today morning with charge nurse at bedside. We discussed the option would be to treat patient medically while keeping him DNR/DNI and if the blood pressures dropped to treat him with possible central line and pressors versus treat him medically with antibiotics and dialysis and if and when blood pressures drop if oral medications do not help at that point instead of doing pressors and transferring to ICU transition to comfort measures. As per the son he has discussed with patient's /DPOA today morning and they would want to go ahead with DNR/DNI, treatment and dialysis but without pressors and central line if and when needed. Goals of care change in the chart. Patient started on treatment. (14) Calciphylaxis: (15) HTN (hypertension): Plan Goals of care discussion as above. Analgesia: Tylenol as needed, [place] 5 mg every 6 hourly as needed Glycemic control: Not needed. Hypoglycemia protocol for recurrent hypoglycemia. Check A1c Nutrition: Regular diet mechanical soft CODE STATUS: As per goals of care discussion above. DNR/DNI. Not okay with consult to ICU for pressors or central line. Okay with PICC line PUD prophylaxis: Protonix DVT prophylaxis: Heparin 5000 every 12 hourly Discharge planning: Back to SNF once medically appropriate Continue with care at [facility] with telemetry This documentation was created by [employer] welding machine operator arc software. Every effort was made to ensure accuracy of welding machine operator arc. Any obvious errors or omissions should be clarified with the author of the document. Attestations Medical Necessity Statement*: Requires further hospitalization for management of recurrent hypoglycemia, hypoxic and hypercapnic respiratory failure in setting of sepsis from pneumonia, COVID-19, morbid obesity and obstructive sleep apnea in a patient with end-stage renal disease on hemodialysis Coding Level of Care Code Critical Care >/= 30 minutes Critical care time (in minutes): 70 The high probability of a clinically significant, sudden or life threatening deterioration, as referenced in this documentation, required my full and direct attention, intervention and personal management. The critical care time shown is in addition to time spent performing any reported separately billable procedures and includes the following: [x] Data and vital sign review and interpretation [x] Patient assessment, examination and intervention [x] Medication orders and management [x] Patient/Family updates as able [x] Care Coordination and Documentation. Other Coding Information This patient has a high probability of clinically significant, sudden or life threatening deterioration of the patient's (neurological/pulmonary/cardiac/renal/ID/endocrine) systems required my full, direct attention, the highest level of physician preparedness for urgent intervention and personal management. I managed/supervised life or organ supporting interventions that required frequent physician assessment. I devoted my full attention in the ICU to the direct care of this patient for the period of time indicated above. Time I spent with family or surrogate(s) is included only if the patient was incapable of providing necessary information or participating in decision making. This time includes the following services provided: Telemetry review Hemodynamic interpretation, assessment and management Review and interpretation of CXR Review and interpretation of lab values Review and interpretation of microbiologic data and culture results Review of medications and administration Review and interpretation of Nutrition requirements and management Discussion of management with other consultants and services Clinical update to family members Diagnoses Sepsis A41.9 Acute respiratory failure with hypoxia and hypercapnia J96.01; J96.02 Pneumonia due to COVID-19 virus U07.1; J12.82 Altered mental status R40.0 Altered mental status type: somnolence Hypoglycemia associated with type 2 diabetes mellitus E11.649 End stage renal disease on dialysis N18.6; Z99.2 Bradycardia R00.1 Hepatic encephalopathy K76.82 Leg swelling M79.89 COPD (chronic obstructive pulmonary disease) J44.9 Obstructive sleep apnea G47.33 Comfort measures only status Z51.5 Goals of care, counseling/discussion Z71.89 Calciphylaxis E83.59 HTN (hypertension) I10
--- NOTE | 2022-09-28 10:22 | PC.CHAP ---
Pastoral Care Encounter/Spiritual Assessment Type of Contact [] Declined white shoe ragger visit [] Patient/Family/Request visit [] Outpatient visit [] Follow-up visit [] Physician referral [] Code/Alert [x] Routine visit [] Staff referral [] Actively dying [] Patient sleeping [] Family support [] [] Out of room [] Palliative care [] [] Receiving care in room [] Pre-surgical visit [] Trauma [] Long length of stay [] ICU visit [] Other: Relational/Emotional Strength [] Patient feels connected with others/family/visitors/staff [] Distress [] Loneliness/isolation [] Abandonment Spirituality of Patient [] Person of Dali [] Attends Latter Day of their Dali [] Believes in Prayer [] Reads Bible or Anabaptist materials [] There are Spiritual issues to be addressed [employer] Former Interventions [x] Prayer [] Active listening [] Non-anxious presence [] Spiritual/emotional support [] Crisis/trauma care [] Spiritual counseling [] Bereavement support [] Provided bereavement packet [] Provided Bible/devotional materials [] Provided toy/stuffed animal, coloring book to patient or family member [] Provided Communion [] Anointing/Longs [] Salvation [] Completed spiritual assessment [] Other: Impact on Illness or Injury [] Angry [] Fearful [] Anxious [] Often cries [] Exhaustion [] Unable to work [] Unable to attend mormon [] Unable to walk/stand [] Unable to read [] Unable to drive [] Unable to eat/drink [] Unable to sleep [] Unable to be with family [] Patient intubated [] Other: Summary Time spent with patient
[2022-09-28 10:26] LABS: ABG PH Result 7.21 (7.35-7.45); Arterial Blood Gas Hematocrit 35.2 % (42-52); Base Excess ABG 3.4 mmol/L (-2.0-2.0); Blood Gas Allen Test Pos; Blood Gas Operator Identificat WALCI; Blood Gas Sample Site Radial, left; Blood Gas Sample Type Arterial; Carboxyhemoglobin 1.4 %THgb (0.4-20.1); HCO3 ABG 33.3 mmol/L (22-26); HGB O2 Sat 96.3 % (95-100); Ionized Calcium Level - ABG 1.3 mmol/L (1.1-1.4); Methemoglobin 0.8 % (0.4-1.5); Oxygen Device NC; Oxygen Saturation ABG 98.5; Potassium Level - ABG 4.6 mmol/L (3.5-5.0); Total Hemoglobin 11.5 g/dL (14-18)
[2022-09-28] MEDS: dextrose 50% syringe 50 mL IVP (10:26)
[2022-09-28] MEDS: hydrocortisone 100 mg/2 mL SDV IVP (10:27)
[2022-09-28 10:28] LABS: ABG PCO2 82.8 mmHg (35-45)
--- NOTE | 2022-09-28 10:31 | PC.PHAR ---
IBW (kg): 67.71 Dosing wt(kg): 92.6 Estimated Creatinine clearance (ml/min): 13.0 CRCL method: Cockcroft and Gault using adjusted body weight Drug selected: Vancomycin Loading dose (mg): Vd (liters): 64.8 (factor used: 0.7 L/kg) Jalen (hr-1): 0.015 Half life (hrs): 46.21 CLvanco=?? 0.972 L/hr Recommended dose: 1500 mg Interval: 72 hrs Infusion time (hrs): 1 Predicted peak (mcg/mL): 34.8 Predicted trough (mcg/mL): 12.00 Adjusted body weight was selected for vancomycin dosing. To switch back, select the total body weight option above. Recommendations: Give Vancomycin 1500 mg q 72 hrs with an expected Cpeak of 34.8 mcg/ml and an expected Ctrough of 12.00 mcg/ml AUC 0-24 /PRASHANT Data: PRASHANT 0.5 mcg/mL:?? AUC/PRASHANT:? 1028.8 PRASHANT 1.0 mcg/mL:?? AUC/PRASHANT:? 514.4 --------- PRASHANT 1.5 mcg/mL:?? AUC/PRASHNAT:? 342.9 PRASHANT 2.0 mcg/mL:?? AUC/PRASHANT:? 257.2 Renal dosing of other antibiotics (review renal dosing of other medications and list guidelines here): Thank you for the consult, will continue to follow. Signature: Donald Mcdaniel
[2022-09-28] MEDS: vancomycin 1,500 MG/300 ML PIGGYBACK 200 MG IV (10:40)
[2022-09-28] MEDS: dextrose 5%-sod chloride 0.9% 1,000 ML 75 ML IV (10:40)
[2022-09-28] MEDS: pantoprazole 40 mg SDV IVP (10:40)
[2022-09-28] MEDS: midodrine 5 mg TABLET 10 MG PO ×3 (10:40→20:52)
[2022-09-28 10:41] LABS: Basophils % 0.2 %; Eosinophils # 0.1 10^3/uL (0.0-0.8); Eosinophils % 0.5 %; Glucose Point of Care 125 mg/dL (70-110); Hematocrit 36.6 % (42.0-52.0); Lymphocytes # 0.4 10^3/uL (0.8-4.8); Lymphocytes % 3.2 %; Mean Corpuscular HGB Conc 30.1 g/dL (30.0-36.0); Mean Corpuscular Hemoglobin 30.2 pg (28.0-34.0); Mean Corpuscular Volume 100.5 fl (80-94); Monocytes # 0.6 10^3/uL (0.2-0.9); Monocytes % 4.7 %; Neutrophils # 12.19 10^3/uL (1.8-7.7); Neutrophils % 90.4 %; Nucleated Red Blood Cells % 0 %; Platelet Count 225 10^3/cmm (130-400); Red Blood Count 3.64 10^6/uL (4.1-5.3); Red Cell Distribution Width 14.4 % (12.1-15.1); White Blood Count 13.5 10^3/uL (4.0-10.0)
--- NOTE | 2022-09-28 10:44 | PM.CONSULT ---
Providers/Reason For Consult Consulting Physician/Specialty*: komana/nephrology Reason for Consult*: End-stage renal disease Attending Physician: Bo Perera MD Primary Care Provider: Allen Ackerman DO History of Present Illness History of Present Illness Bigg Rivera is a 66 year old male with past medical history of end-stage renal disease, altered mental status generalized weakness was sent from the shelter due to worsening mental status, patient was noted to be hypoglycemic. Patient was also COVID-positive last week. Due to poor quality of life patient and family has decided comfort care initially but this morning they opted for DNR/DNI but could to continue dialysis. Lab data significant for on ABG showed pH of 7.2 with PCO2 of 82 and has metabolic acidosis with bicarb of 33. Review of Systems Narrative: canot obtain Medications/Allergies Home Medications Medication Instructions Recorded Confirmed Last Taken Type atorvastatin 40 mg tablet 40 mg PO BEDTIME 06/30/19 09/27/22 09/26/22 History diphenhydramine HCl 25 mg capsule 50 mg PO Q4H PRN Itching 06/30/19 09/27/22 07/02/19 03:00 History (Benadryl) sevelamer carbonate 800 mg tablet 1,600 mg PO TID 06/30/19 09/27/22 09/26/22 History (Renvela) pen needle, diabetic 31 gauge x #200 ea 06/06/20 09/27/22 Unknown Rx 5/16 (TechLITE Pen Needle) blood sugar diagnostic (Blood #300 ea 09/02/20 09/27/22 Unknown Rx Glucose Test strips) Cam Walker #1 ea 09/19/20 09/27/22 Unknown Rx Diabetic shoes with 3 pairs of #1 ea 10/06/20 09/27/22 Unknown Rx inserts pen needle, diabetic 31 gauge x #100 ea 06/11/21 09/27/22 Unknown Rx 5/16 (TechLITE Pen Needle) baclofen 5 mg tablet 5 mg PO DAILY PRN Leg cramps, 08/06/21 09/27/22 Unknown Rx muscle spasm #30 tabs flash glucose sensor (FreeStyle #1 ea 08/06/21 09/27/22 Unknown Rx Christopher 2 Sensor kit) nebulizers #1 ea 08/06/21 09/27/22 Unknown Rx gabapentin 300 mg capsule 300 mg PO DAILY 08/14/21 09/27/22 09/27/22 History promethazine 25 mg tablet 25 mg PO Q6H PRN Nausea 08/14/21 09/27/22 Unknown History comp.stocking,knee,long,medium #12 ea 08/25/21 09/27/22 Unknown Rx acetaminophen 325 mg tablet 650 mg PO Q6H PRN Pain 07/01/22 09/27/22 Unknown History (Tylenol) apixaban 5 mg tablet (Eliquis) 5 mg PO BID 07/01/22 09/27/22 09/26/22 History bismuth subsalicylate 525 mg/15 mL 525 mg PO Q24H PRN Diarrhea 07/01/22 09/27/22 Unknown History oral suspension calcium carbonate 1,000 mg tablet 1,000 mg PO BEDTIME 07/01/22 09/27/22 09/26/22 History cholecalciferol (vitamin D3) 25 25 mcg PO DAILY 07/01/22 09/27/22 09/27/22 History mcg (1,000 unit) capsule (Vitamin D3) dextran 70-hypromellose 0.1 %-0.3 2 drp ophthalmic (eye) Q4H PRN Dry 07/01/22 09/27/22 Unknown History % eye drops Eyes fluticasone propionate 50 1 spray intranasal BID 07/01/22 09/27/22 09/27/22 History mcg/actuation nasal spray,suspension guaifenesin 100 mg/5 mL oral liquid 200 mg PO Q4H PRN Cough 07/01/22 09/27/22 09/26/22 History insulin glargine 100 unit/mL (3 56 unit SUBCUT BID 07/01/22 09/27/22 09/27/22 History mL) subcutaneous pen (Lantus Solostar U-100 Insulin) loperamide-simethicone 2 mg-125 mg 1 tab PO Q24H PRN Gastric Reflux 07/01/22 09/27/22 Unknown History tablet loratadine 10 mg tablet (Claritin) 10 mg PO DAILY 07/01/22 09/27/22 09/27/22 History melatonin 3 mg tablet 3 mg PO BEDTIME 07/01/22 09/27/22 09/26/22 History midodrine 5 mg tablet 5 mg PO BID 07/01/22 09/27/22 09/27/22 History sodium zirconium cyclosilicate 10 See Rx Instructions .Route .COMPLEX 07/01/22 09/27/22 09/27/22 History gram oral powder packet (Lokelma) temazepam 15 mg capsule 7.5 mg PO BEDTIME 07/01/22 09/27/22 09/26/22 History albuterol sulfate 2.5 mg/3 mL 2.5 mg inhalation Q4H PRN 09/27/22 09/27/22 Unknown History (0.083 %) solution for nebulization shortness of breath or wheezing hydrocodone 5 mg-acetaminophen 325 0.5 tab PO Q6H PRN Pain 09/27/22 09/27/22 Unknown History mg tablet hydrocodone 5 mg-acetaminophen 325 1 tab PO Q6H PRN Pain 09/27/22 09/27/22 Unknown History mg tablet insulin aspart U-100 100 unit/mL See Rx Instructions .Route .COMPLEX 09/27/22 09/27/22 Unknown History (3 mL) subcutaneous pen (Novolog FlexPen U-100 Insulin aspart) nirmatrelvir 150 mg-ritonavir 100 1 ea PO . DIRECTED 09/27/22 09/27/22 Unknown History mg tablets in a dose pack (EUA) (Paxlovid) sucroferric oxyhydroxide 500 mg 500 mg PO TID 09/27/22 09/27/22 09/27/22 History chewable tablet (Velphoro) vitamin B complex and vitamin C 1 cap PO DAILY 09/27/22 09/27/22 09/26/22 History no.20-folic acid 1 mg capsule (Renal Caps) Allergies Allergy/AdvReac Type Severity Reaction Status Date / Time COVID-19 (SARS-CoV-2) Allergy ALGY-Anaphy Verified 12/05/21 17:21 vaccine, conchita laxis Current Medications Generic Name Dose Route Start Last Admin Trade Name Freq PRN Reason Stop Dose Admin Senna/Docusate Sodium 1 tab 09/28/22 09:00 09/28/22 08:40 Sennosides-Docusate Tablet PO Not Given BID ARABELLA PFSH Acute PFSH: Medical History (Updated 09/28/22 @ 13:05 by Bo Perera MD) Anemia Atrial fibrillation Bradycardia Calciphylaxis COPD (chronic obstructive pulmonary disease) Coronary artery disease COVID-19 CVA (cerebral vascular accident) Diabetes mellitus Diabetes mellitus, with long-term current use of insulin Diabetic peripheral neuropathy associated with type 2 diabetes mellitus Dyslipidemia End stage renal disease on dialysis Gout Hyperphosphatemia Hypertension Mixed dyslipidemia Neuropathy Obstructive sleep apnea Onychodystrophy Pure hypercholesterolemia PVD (peripheral vascular disease) Surgical History H/O hernia repair Ventral History of appendectomy Hx of cholecystectomy S/P removal of parathyroid gland Family History Father No problems noted. Other Cancer Diabetes Denies family history of CAD (coronary artery disease) Clotting disorder Dementia Hyperlipidemia Psychiatric illness Chronic kidney disease (CKD) Suicide Anesthesia complication Bleeding disorder Family history of premature coronary artery disease Lung disease Hypertension Stroke Social History Smoking and tobacco status: never smoked Alcohol intake: never Vitals/I&O/Wt Last Vital Signs Temp 98.4 F 09/27/22 17:19 Pulse 44 L 09/28/22 08:20 Resp 20 H 09/28/22 08:20 BP 94/48 09/28/22 08:20 Pulse Ox 100 09/28/22 08:20 O2 Del Method 09/28/22 08:04 O2 Flow Rate 2 09/28/22 08:04 FiO2 35 09/28/22 03:25 09/27/22 09/28/22 09/28/22 22:59 06:59 14:59 Intake Total 0 / 0 50 / 50 Balance 0 / 0 50 / 50 Weight last 48 hrs Weight 130.181 kg Weight 101.151 kg Physical Exam Narrative: No acute distress no edema Data 09/28/22 10:35 09/27/22 19:18 Micro: Microbiology 09/27/22 21:10 Blood Culture - Preliminary Blood SPECIMEN COLLECTED 09/27/22 21:10 Blood Culture - Preliminary Blood SPECIMEN COLLECTED A&P Assessment and plan (1) End stage renal disease on dialysis: Plan 1. End-stage renal disease: On TTS schedule as outpatient, repeat labs pending, based on labs dialysis today or tomorrow morning. 2. Acute on chronic respiratory failure: Has primary respiratory acidosis, management per primary team 3. Borderline low blood pressures: Continue midodrine 4. Chronic metabolic alkalosis: Likely compensation for chronic respiratory acidosis 5. Anemia: Mild, monitor 6. Patient with baseline poor quality of life currently DNR/DNI, no pressors but wishes to continue dialysis for now. Patient evaluated using audiovisual cart. Time spent 35 minutes Consult Attestations Medical Necessity Statement: esrd, AMS, Q CVA, a fib, bradycardia Coding Level of Care Code Acute Code for Chg Fwd Diagnoses End stage renal disease on dialysis N18.6; Z99.2
[2022-09-28 11:06] LABS: Estmated Average Glucose 157; Hemoglobin A1C 7.1 % (4.0-6.0)
[2022-09-28 11:11] LABS: Alanine Aminotransferase 12 U/L (0-41); Albumin Level 3.4 g/dL (3.5-5.2); Alkaline Phosphatase 120 U/L (40-130); Anion Gap 19.9 (5-19); Aspartate Amino Transferase 14 U/L (0-40); Blood Urea Nitrogen 72 mg/dL (8-23); Carbon Dioxide 30 mmol/L (22-29); Chloride 95 mmol/L (98-107); Globulin 3.9 g/dL (1.3-4.6); Glomerular Filtration Rate 6.5 mL/min (90-130); Glucose 95 mg/dL (65-115); Iron 26 ug/dL (59-158); Osmolality Calculated 311 mOsm/kg (285-295); Percent Saturation 18.8 % (20-50); Phosphorus 6.7 mg/dL (2.5-4.5); Potassium 4.9 mmol/L (3.5-5.1); Sodium 140 mmol/L (136-145); Total Bilirubin 0.2 mg/dL (0.15-1.2); Total Iron Binding Capacity 138 mcg/dl; Total Protein 7.3 g/dL (6.6-8.7); Unsaturated Iron Binding 112 ug/dL (112-347)
[2022-09-28 11:25] LABS: Procalcitonin 3.41 ng/mL (0-0.5); Vitamin B12 614 pg/mL (232-1245)
[2022-09-28 11:29] LABS: Lactic Sepsis W/Reflex 0.7 mmol/L (0.5-2.2)
[2022-09-28 11:40] LABS: Folate Level > 20.0 ng/mL (4.5-32.2)
--- NOTE | 2022-09-28 12:16 | PC.NURSE ---
Patient started coughing. Removed Bipap so patient wouldn't aspirate. NC at 2L applied. Suctioned patient and available at bedside. Call light in reach. IV infiltrated removed applied 2x2 and coban.
[2022-09-28 12:25] LABS: Glucose Point of Care 67 mg/dL (70-110)
[2022-09-28] MEDS: hydrocortisone 100 mg/2 mL SDV 50 MG IVP ×2 (14:42→20:51)
--- NOTE | 2022-09-28 14:54 | PC.NURSE ---
Midline placed to right brachial vein with difficulty. Due to past history of fistula to bilateral upper extremities, very limited venous access noted. Mid-arm circumference measured 10 cm from right AC and noted at 34 cm. Trimmed cath length 8 cm with 0 cm external length. Pt tolerated well. Dressing to midline due to be changed tomorrow, 09/29/22.
[2022-09-28] MEDS: piperacillin-tazobactam 3.375 GM in sodium chloride 0.9% (plus) 50 ML IV (15:22)
[2022-09-28 15:43] LABS: Glucose Point of Care 228 mg/dL (70-110)
[2022-09-28] MEDS: sennosides-docusate Tablet 1 TAB PO (17:13)
[2022-09-28 17:16] LABS: Glucose Point of Care 285 mg/dL (70-110)
[2022-09-28] MEDS: insulin lispro 100 unit/1 mL SUBCUT ×2 (17:43→20:52)
--- NOTE | 2022-09-28 19:55 | PC.NURSE ---
Patient attempted to get out of bed while was not in room. Patient was educated to not get out of bed several times while being put on a bed ramirez, and patient repeatedly stated I just want to get up. 3 side rails were lifted.
--- NOTE | 2022-09-28 20:25 | PC.NURSE ---
Patient is confused, attempting to get out of bed and removed nasal cannula. requested some medication to relax patient. Dr Martinez was informed, and order was given for 10mg Zyprexa IM once.
[2022-09-28] MEDS: OLANZapine 10 mg VIAL IM (20:50)
[2022-09-28] MEDS: apixaban 5 mg Tablet PO (20:52)
[2022-09-28] MEDS: ipratropium-albuterol 3 mL Neb INHALATION (21:11)
[2022-09-28] MEDS: budesonide 0.5 mg/2 mL Neb INHALATION (21:11)
[2022-09-28 21:19] LABS: Glucose Point of Care 334 mg/dL (70-110)
--- NOTE | 2022-09-28 22:10 | PC.NURSE ---
Patient was swallowing pills earlier in shift, but currently does not have a gag reflex. stating that she wants patient moved to the ICU if he needs it. Dr. Martinez notified.
--- NOTE | 2022-09-28 22:34 | PC.NURSE ---
at bedside states that she does not want patient to be intubated. states that she thought the patient was still on comfort care and that we were going to do comfort care, but still give him antibiotics and Bipap. asking for something to help patient not be so restless so that he will wear the Bipap. Dr. Martinez notified. Haldol 2 mg IM x1 ordered.
[2022-09-28] MEDS: haloperidol inj 5 mg/mL INJ 1 mL 2 MG IM (23:06)
--- NOTE | 2022-09-28 23:14 | PC.NURSE ---
DISCUSSION WITH REGARDING TREATMENT AND PATIENT STATUS Nurse spoke with Domi at bedside and discussed in detail what believes and desires regarding treatment. stated that she does not want patient intubated. previously stated to restaurant shift leader nursing staff that she wanted patient to be transferred to ICU. This nurse educated that ICU transfer would not change current patient status, keeping in mind that patient does not need to be put on a drip or want to be intubated. Discussion took place as to whether patient was still considered comfort care. stated that all day she believed that patient was still a comfort care patient. Nurse explained to that comfort care keeps the patient comfortable but is meant for end-of-life; nurse also explained that comfort care meant not seeking advanced treatment, not taking any action to prolong a patient's life, and not prolonging patient suffering. This nurse also stated that regardless of patient status, the goal for every patient hospitalized is to keep them pain free and comfortable, and verbalized understanding to difference of comfort care and current patient status, seeking treatment such as antibiotic use, dialysis, etc. This nurse also educated that this morning discussion took place with primary nurse, as well as day-shift and night-shift charge nurses, about 's wishes to change from comfort care to now seeking treatment, such as antibiotic use, and change patient status from comfort care. clarified once again that patient remains DNR/DNI. Nurse also shared with that goal for shift was to keep patient relaxed, pain-free, received prescribed antibiotics, and keep O2 saturations adequate by using oxygen or BiPap if patient tolerates keeping it on. Patient's verbalized understanding.
--- NOTE | 2022-09-28 23:38 | PC.NURSE ---
2mg Haldol IM administered per Dr Martinez's orders to patient's restlessness and attempts to remove O2 as well as climb out of bed. Patient remains bed alarmed, with 3 side rails up, and at bedside. Nurse educated to use call light if she needed or wanted anything.
[2022-09-29] VITALS (16 sets, daily range): BP systolic 96–152; BP diastolic 53–97; PULSE 53–70; RESP 16–28; TEMP 36.4–37.1; O2SAT 90–100; BMI 44.1
[2022-09-29 01:19] LABS: Glucose Point of Care 287 mg/dL (70-110)
--- NOTE | 2022-09-29 01:22 | PC.NURSE ---
Nurse rounded on patient, found patient had removed bipap and saturations were down in the 80s. Bipap replaced and O2 saturations went back up into 90s.
[2022-09-29] MEDS: piperacillin-tazobactam 3.375 GM in sodium chloride 0.9% (plus) 50 ML IV ×2 (02:03→17:28)
[2022-09-29] MEDS: hydrocortisone 100 mg/2 mL SDV 50 MG IVP ×3 (02:03→20:38)
[2022-09-29] MEDS: ipratropium-albuterol 3 mL Neb INHALATION ×3 (03:27→20:49)
--- NOTE | 2022-09-29 03:49 | PC.NURSE ---
Patient repeatedly keeps taking bipap off. Nasal cannula at 5L was placed on patient, tolerating much better, saturating in high 90s. RT was informed of oxygen delivery change.
--- NOTE | 2022-09-29 04:31 | PC.NURSE ---
Oral care performed with swab.
[2022-09-29 05:05] LABS: Glucose Point of Care 247 mg/dL (70-110)
[2022-09-29 05:11] LABS: Basophils % 0.2 %; Eosinophils % 0.1 %; Hematocrit 37.2 % (42.0-52.0); Lymphocytes # 0.5 10^3/uL (0.8-4.8); Lymphocytes % 3.4 %; Mean Corpuscular HGB Conc 29.6 g/dL (30.0-36.0); Mean Corpuscular Hemoglobin 29.8 pg (28.0-34.0); Mean Corpuscular Volume 100.8 fl (80-94); Mean Platelet Volume 10.4 fL (7.4-10.4); Monocytes # 0.6 10^3/uL (0.2-0.9); Monocytes % 4.2 %; Neutrophils # 13.63 10^3/uL (1.8-7.7); Neutrophils % 89.6 %; Nucleated Red Blood Cells % 0 %; Platelet Count 239 10^3/cmm (130-400); Red Blood Count 3.69 10^6/uL (4.1-5.3); Red Cell Distribution Width 14.3 % (12.1-15.1); White Blood Count 15.2 10^3/uL (4.0-10.0)
--- NOTE | 2022-09-29 05:25 | PC.NURSE ---
called, asking for patient update. Nurse informed that patient had been aggravated, and removed BiPap several times and that nasal cannula had been applied instead. told nurse that older son would be in to see patient early this morning, sometime after 0700.
[2022-09-29 05:37] LABS: Alanine Aminotransferase 15 U/L (0-41); Albumin Level 3.5 g/dL (3.5-5.2); Alkaline Phosphatase 147 U/L (40-130); Anion Gap 22.1 (5-19); Aspartate Amino Transferase 16 U/L (0-40); Calcium 8.9 mg/dL (8.5-10.5); Carbon Dioxide 28 mmol/L (22-29); Chloride 92 mmol/L (98-107); Chol HDL Ratio 2.36 mg/dL (1.0-5.00); Cholesterol 78 mg/dL (0-200); Globulin 4.2 g/dL (1.3-4.6); Glomerular Filtration Rate 5.3 mL/min (90-130); Glucose 238 mg/dL (65-115); HDL Cholesterol 33 mg/dL (60-100); LDL Cholesterol Calculated 25 mg/dL (50-129); LDL HDL Ratio 0.76 RATIO (0.00-3.22); Magnesium 2.4 mg/dL (1.7-2.3); Osmolality Calculated 316 mOsm/kg (285-295); Phosphorus 6.8 mg/dL (2.5-4.5); Potassium 6.1 mmol/L (3.5-5.1); Sodium 136 mmol/L (136-145); Total Bilirubin 0.3 mg/dL (0.15-1.2); Total Protein 7.7 g/dL (6.6-8.7); Triglycerides 100 mg/dL (0-150)
[2022-09-29 05:39] LABS: Procalcitonin 11.56 ng/mL (0-0.5)
[2022-09-29 05:50] LABS: Blood Urea Nitrogen 87 mg/dL (8-23)
[2022-09-29 06:21] LABS: Glucose Point of Care 228 mg/dL (70-110)
[2022-09-29] MEDS: budesonide 0.5 mg/2 mL Neb INHALATION ×2 (08:24→20:49)
[2022-09-29] MEDS: insulin lispro 100 unit/1 mL SUBCUT ×4 (09:02→21:44)
[2022-09-29] MEDS: gabapentin 300 mg Capsule PO (09:03)
[2022-09-29] MEDS: midodrine 5 mg TABLET 10 MG PO ×3 (09:03→21:34)
[2022-09-29] MEDS: sennosides-docusate Tablet 1 TAB PO (09:03)
[2022-09-29] MEDS: apixaban 5 mg Tablet PO ×2 (09:11→21:34)
[2022-09-29] MEDS: pantoprazole 40 mg SDV IVP (09:11)
--- NOTE | 2022-09-29 09:40 | PM.PN ---
Subjective Subjective: no new complaints Medications: Reviewed: Yes Vitals/I&O/Wt Last Vital Signs Temp 97.6 F 09/29/22 08:00 Pulse 57 L 09/29/22 08:24 Resp 16 09/29/22 08:24 BP 96/53 09/29/22 08:00 Pulse Ox 96 09/29/22 08:24 O2 Del Method 09/29/22 08:24 O2 Flow Rate 2 09/29/22 08:24 FiO2 30 09/29/22 03:29 09/28/22 09/29/22 09/29/22 22:59 06:59 14:59 Intake Total 566.25 / 1071.25 50 / 1121.25 Balance 566.25 / 1071.25 50 / 1121.25 Weight last 48 hrs Weight 131.598 kg Weight 130.181 kg Weight 130.181 kg Weight 101.151 kg Physical Exam Narrative: No acute distress no edema Data 09/29/22 04:56 09/29/22 04:56 Micro: Microbiology 09/27/22 21:10 Blood Culture - Preliminary Blood NEGATIVE TO DATE 09/27/22 21:10 Blood Culture - Preliminary Blood NEGATIVE TO DATE A&P Assessment and plan (1) End stage renal disease on dialysis: Plan 1. End-stage renal disease: On TTS schedule as outpatient, HD today 2. Acute on chronic respiratory failure: Has primary respiratory acidosis, management per primary team 3. Borderline low blood pressures: Continue midodrine 4. Chronic metabolic alkalosis: Likely compensation for chronic respiratory acidosis 5. Anemia: Mild, monitor 6. Patient with baseline poor quality of life currently DNR/DNI, no pressors but wishes to continue dialysis for now. Patient evaluated using audiovisual cart. Time spent 35 minutes Attestations Medical Necessity Statement*: per medicine Coding Level of Care Code Acute Code for Chg Fwd Diagnoses End stage renal disease on dialysis N18.6; Z99.2
[2022-09-29 12:24] LABS: Glucose Point of Care 428 mg/dL (70-110)
--- NOTE | 2022-09-29 13:00 | PM.PN ---
Subjective Subjective: Tried to put onOvernight patient did not wear BiPAP. The patient was agitated and required IM Zyprexa and Haldol. On examination today seen with son at bedside. Patient is sitting in chair. More awake and alert. Able to have conversation but still dozing off. As per son patient is nearing his baseline. Blood sugars improved and high now. Remains on 2 L saturating more than 90%. Plan for dialysis today. Vitals/I&O/Wt Last Vital Signs Temp 98.1 F 09/29/22 12:00 Pulse 61 09/29/22 12:00 Resp 16 09/29/22 12:00 BP 128/61 09/29/22 12:00 Pulse Ox 96 09/29/22 08:24 O2 Del Method 09/29/22 08:24 O2 Flow Rate 2 09/29/22 08:24 FiO2 30 09/29/22 03:29 09/28/22 09/29/22 09/29/22 22:59 06:59 14:59 Intake Total 566.25 / 1071.25 50 / 1121.25 360 / 360 Balance 566.25 / 1071.25 50 / 1121.25 360 / 360 Weight last 48 hrs Weight 131.598 kg Weight 131.598 kg Weight 130.181 kg Weight 130.181 kg Weight 101.151 kg Physical Exam Narrative: General: No acute distress, drowsy but arousable, sitting in chair, AOx3, chronically sick appearing, on nasal cannula HEENT: PERRLA, pupils bilaterally equal and reactive Chest: Bilateral bronchial breath sounds all over lung vann with occasional coarse crackles and rhonchi CVS: S1-S2 regular, no murmurs, no tachycardia, no gallops, no rubs Abdomen: Soft, nontender, no organomegaly, bowel sounds present, morbidly obese Neuro: No focal deficits, no facial deformity, moving all limbs, weak Data 09/29/22 04:56 09/29/22 04:56 Micro: Microbiology 09/27/22 21:10 Blood Culture - Preliminary Blood NEGATIVE TO DATE 09/27/22 21:10 Blood Culture - Preliminary Blood NEGATIVE TO DATE A&P Assessment and plan (1) Sepsis: Present on admission. Ruled in with leukocytosis, bradycardia. Target organ dysfunction with altered mental status and recurrent hypoglycemia. Source of infection most likely pneumonia in setting of COVID-19 Follow-up blood culture, MRSA swab, urine culture, urine Legionella and bacterial antigen pending. Sputum culture not collected. Continue with vancomycin and Zosyn. Will de-escalate as per culture results. Keep mean artery pressure 65. Continue with 10 mg 3 times daily. (2) Acute respiratory failure with hypoxia and hypercapnia: Insetting of COPD exacerbation obstructive sleep apnea secondary to pneumonia from COVID-19. Home BiPAP nightly Oxygen supplementation keeping saturation over 88%. DuoNebs every 6 hours, budesonide twice daily. (3) Pneumonia due to COVID-19 virus: Treatment as above. Pulmonary toilet with incentive spirometry and flutter valve. Wean hydrocortisone 50 mg every 12 hourly. We will continue to wean and wean off aggressively within next 24 hours. (4) Altered mental status: Improving. Most likely in setting of sepsis along with recurrent hypoglycemia and and mild hepatic encephalopathy with elevated ammonia levels. CT head negative for acute abnormality on admission. Frequent reorientation. Qualifiers: Altered mental status type: somnolence Qualified Code(s): R40.0 - Somnolence (5) Hypoglycemia associated with type 2 diabetes mellitus: Most likely in setting of sepsis along with CKD. Blood sugars higher now A1c 7.1. Patient at home takes Lantus 56 units twice daily, sliding scale. Weaning off of hydrocortisone as above. Start on Lantus 20 units nightly, high insulin dose protocol. Check blood sugars and insulin every 4 hourly. Diabetic diet (6) End stage renal disease on dialysis: Monitor BMP. Medical reconciliation done for nephrotoxic drugs. Nephrology consulted for dialysis. Plan for dialysis today. (7) Bradycardia: Resolving. Telemetry. Not on any rate limiting drugs. Continue to monitor. (8) Hepatic encephalopathy: (9) Leg swelling: (10) COPD (chronic obstructive pulmonary disease): (11) Obstructive sleep apnea: (12) Comfort measures only status: Goals of care changed as per discussion below. (13) Goals of care, counseling/discussion: Had a detailed discussion about goals of care with patient's son with patient's RN and charge nurse at bedside. Discussion with the patient's son at the bedside regarding goals of care. We discussed currently patient is on comfort measures status which would mean that we will not treat him actively for any pathology but 1 of make sure that he remains comfortable while we will let nature takes its own course which would mean that he would . Son inquired about other possible modalities. He stated he did have a detailed discussion with patient's /DPOA earlier today morning with charge nurse at bedside. We discussed the option would be to treat patient medically while keeping him DNR/DNI and if the blood pressures dropped to treat him with possible central line and pressors versus treat him medically with antibiotics and dialysis and if and when blood pressures drop if oral medications do not help at that point instead of doing pressors and transferring to ICU transition to comfort measures. As per the son he has discussed with patient's /DPOA today morning and they would want to go ahead with DNR/DNI, treatment and dialysis but without pressors and central line if and when needed. Goals of care change in the chart. Patient started on treatment. (14) Calciphylaxis: (15) HTN (hypertension): Plan Goals of care discussion as above. Analgesia: Tylenol as needed, [address] 5 mg every 6 hourly as needed Glycemic control: SSI scale high-dose protocol, Lantus 20 units nightly Nutrition: Renal diabetic dialysis diet, mechanical soft CODE STATUS: As per goals of care discussion above. DNR/DNI. Not okay with consult to ICU for pressors or central line. Okay with PICC line PUD prophylaxis: Protonix DVT prophylaxis: Heparin 5000 every 12 hourly Discharge planning: Back to SNF once medically stable Continue with care at [facility] with telemetry Patient's care discussed in detail with son at bedside. All the questions were answered. This documentation was created by [employer] outside sales manager software. Every effort was made to ensure accuracy of outside sales manager. Any obvious errors or omissions should be clarified with the author of the document. Attestations Medical Necessity Statement*: Requires further hospitalization for management of sepsis, pneumonia, COVID-19 in a patient with baseline type 2 diabetes mellitus and end-stage renal disease on hemodialysis Diagnoses Sepsis A41.9 Acute respiratory failure with hypoxia and hypercapnia J96.01; J96.02 Pneumonia due to COVID-19 virus U07.1; J12.82 Altered mental status R40.0 Altered mental status type: somnolence Hypoglycemia associated with type 2 diabetes mellitus E11.649 End stage renal disease on dialysis N18.6; Z99.2 Bradycardia R00.1 Hepatic encephalopathy K76.82 Leg swelling M79.89 COPD (chronic obstructive pulmonary disease) J44.9 Obstructive sleep apnea G47.33 Comfort measures only status Z51.5 Goals of care, counseling/discussion Z71.89 Calciphylaxis E83.59 HTN (hypertension) I10
[2022-09-29 14:19] LABS: Glucose Point of Care 189 mg/dL (70-110)
[2022-09-29] MEDS: vancomycin 1,000 MG in sodium chloride 0.9% 250 ML 250 MG IV (15:51)
[2022-09-29 17:13] LABS: Glucose Point of Care 232 mg/dL (70-110)
[2022-09-29] MEDS: insulin glargine 100 units/1 mL 20 UNIT SUBCUT (21:41)
[2022-09-29 21:55] LABS: Glucose Point of Care 174 mg/dL (70-110)
--- NOTE | 2022-09-29 23:43 | PC.HD ---
Venous site needlestick x2, then very positional. Venous needle infiltrated 1.25hrs into treatment and had to be replaced. Dialysis circuit also clotted and machine restrung. Pt had Heparin 1000 unit load prior to tx start and 500 units per hour but lines still clotted. Dr Perales ntfd and Heparin re-loaded prior to restarting tx, 2000 units this time with 1000 per hour, no further clotting issues. Pt hypotensive during treatment, Albumin 25% x2 given and treatment able to be completed. Fluid removal goal not met however d/t UF off during hypotensive episode.
[2022-09-30] VITALS (11 sets, daily range): BP systolic 128–186; BP diastolic 61–86; PULSE 50–69; RESP 17–21; TEMP 36.5–37.1; O2SAT 91–97
[2022-09-30 01:18] LABS: Glucose Point of Care 159 mg/dL (70-110)
[2022-09-30] MEDS: insulin lispro 100 unit/1 mL SUBCUT ×4 (02:13→22:21)
[2022-09-30] MEDS: ipratropium-albuterol 3 mL Neb INHALATION ×3 (02:38→20:47)
[2022-09-30 04:22] LABS: Glucose Point of Care 154 mg/dL (70-110)
[2022-09-30] MEDS: benzonatate 100 mg Capsule 200 MG PO ×3 (04:27→21:39)
[2022-09-30 05:35] LABS: Basophils # 0.1 10^3/uL (0.0-0.1); Basophils % 0.5 %; Eosinophils % 0.3 %; Hematocrit 33.5 % (42.0-52.0); Hemoglobin 9.9 g/dL (11.7-16.6); Lymphocytes # 1.1 10^3/uL (0.8-4.8); Lymphocytes % 7.3 %; Mean Corpuscular HGB Conc 29.6 g/dL (30.0-36.0); Mean Corpuscular Hemoglobin 29.3 pg (28.0-34.0); Mean Corpuscular Volume 99.1 fl (80-94); Mean Platelet Volume 9.8 fL (7.4-10.4); Monocytes # 0.9 10^3/uL (0.2-0.9); Monocytes % 5.7 %; Neutrophils # 13.02 10^3/uL (1.8-7.7); Neutrophils % 83.4 %; Nucleated Red Blood Cells % 0.2 %; Platelet Count 246 10^3/cmm (130-400); Red Blood Count 3.38 10^6/uL (4.1-5.3); Red Cell Distribution Width 14.6 % (12.1-15.1); White Blood Count 15.6 10^3/uL (4.0-10.0)
[2022-09-30 05:53] LABS: Alanine Aminotransferase 15 U/L (0-41); Albumin Level 3.7 g/dL (3.5-5.2); Alkaline Phosphatase 138 U/L (40-130); Anion Gap 19.4 (5-19); Aspartate Amino Transferase 19 U/L (0-40); Blood Urea Nitrogen 76 mg/dL (8-23); Calcium 9.2 mg/dL (8.5-10.5); Carbon Dioxide 28 mmol/L (22-29); Chloride 96 mmol/L (98-107); Globulin 3.7 g/dL (1.3-4.6); Glomerular Filtration Rate 6.3 mL/min (90-130); Glucose 143 mg/dL (65-115); Osmolality Calculated 311 mOsm/kg (285-295); Potassium 5.4 mmol/L (3.5-5.1); Sodium 138 mmol/L (136-145); Total Bilirubin 0.3 mg/dL (0.15-1.2); Total Protein 7.4 g/dL (6.6-8.7)
[2022-09-30 06:05] LABS: Hepatitis A Antibody IgM Non-Reactive (Nonreactive); Hepatitis B Core IgM Non-Reactive (Nonreactive); Hepatitis B Surface Antigen Non-Reactive (Nonreactive); Hepatitis C Virus Antibody Non-Reactive (Nonreactive)
[2022-09-30] MEDS: budesonide 0.5 mg/2 mL Neb INHALATION ×2 (07:51→20:47)
[2022-09-30 08:58] LABS: Glucose Point of Care 79 mg/dL (70-110)
--- NOTE | 2022-09-30 09:37 | PC.SOCIAL ---
IMM update IMM updated with patient's . Verbalized an understanding. Initialled, dated, timed, and placed in chart.
[2022-09-30] MEDS: apixaban 5 mg Tablet PO ×2 (10:58→21:39)
[2022-09-30] MEDS: gabapentin 300 mg Capsule PO (10:58)
[2022-09-30] MEDS: cholecalciferol (vitamin D3) 1,000 unit Tablet 1000 UNIT PO (10:58)
[2022-09-30] MEDS: sennosides-docusate Tablet 1 TAB PO (10:59)
[2022-09-30 11:12] LABS: Glucose Point of Care 117 mg/dL (70-110)
[2022-09-30] MEDS: hydrocortisone 100 mg/2 mL SDV 50 MG IVP (11:17)
[2022-09-30] MEDS: pantoprazole 40 mg SDV IVP (11:26)
--- NOTE | 2022-09-30 11:28 | PM.PN ---
Subjective Subjective: ATILIO status post hemodialysis. denies any complaints currently Medications: Reviewed: Yes Vitals/I&O/Wt Last Vital Signs Temp 97.7 F 09/30/22 04:00 Pulse 54 L 09/30/22 11:20 Resp 19 H 09/30/22 11:20 BP 186/76 09/30/22 11:20 Pulse Ox 93 09/30/22 11:20 O2 Del Method 09/30/22 08:06 O2 Flow Rate 3 09/30/22 02:41 FiO2 30 09/29/22 20:50 09/29/22 09/30/22 09/30/22 22:59 06:59 14:59 Intake Total 540 / 1140 740 / 1880 Output Total 1839 / 1839 Balance 540 / 1140 -1099 / 41 Weight last 48 hrs Weight 129.5 kg Weight 131.598 kg Weight 131.598 kg Physical Exam Narrative: No acute distress no edema Data 09/30/22 05:19 09/30/22 05:19 A&P Assessment and plan (1) End stage renal disease on dialysis: Plan 1. End-stage renal disease: On TTS schedule as outpatient, HD tomorrow 2. Acute on chronic respiratory failure: Has primary respiratory acidosis, management per primary team 3. Borderline low blood pressures: Continue midodrine 4. Chronic metabolic alkalosis: Likely compensation for chronic respiratory acidosis 5. Anemia: Mild, monitor 6. Patient with baseline poor quality of life currently DNR/DNI, no pressors but wishes to continue dialysis for now. Patient evaluated using audiovisual cart. Time spent 35 minutes Attestations Medical Necessity Statement*: per medicine Coding Level of Care Code Acute Code for Chg Fwd Diagnoses End stage renal disease on dialysis N18.6; Z99.2
[2022-09-30] MEDS: sertraline 50 mg Tablet PO (11:36)
[2022-09-30] MEDS: guaiFENesin 100 mg/5 mL UDC 10 mL 200 MG PO (14:11)
--- NOTE | 2022-09-30 15:57 | P.PN_ITS ---
Subjective Subjective: No acute events overnight. Today morning patient was slightly confused and jittery and pulled out his PICC line. On examination seen with family at bedside sitting up in chair. Awake and alert able to have complete conversation. States he is extremely bothered by the cough no shortness of josé th is improved. After family members he is coming closer to his baseline mentation. But they are worried that he is not able to restful sleep at night. states his sleep has been more disturbed since at skilled nursing his home dose of restoral has been discontinued. As per he was on 15 mg of restoral. Otherwise patient has remained hemodynamically stable and afebrile. Blood pressures are actually improving and are higher side. Slightly bradycardic. Blood sugars also improving. Patient is on 2 L to room air with saturation being maintained more than 90%. Underwent dialysis yesterday. Vitals/I&O/Wt Last Vital Signs Temp 97.7 F 09/30/22 04:00 Pulse 54 L 09/30/22 11:20 Resp 19 H 09/30/22 11:20 BP 186/76 09/30/22 11:20 Pulse Ox 93 09/30/22 11:20 O2 Del Method 09/30/22 08:06 O2 Flow Rate 3 09/30/22 02:41 FiO2 30 09/29/22 20:50 09/30/22 09/30/22 09/30/22 06:59 14:59 22:59 Intake Total 740 / 1880 400 / 400 Output Total 1839 / 1839 Balance -1099 / 41 400 / 400 Weight last 48 hrs Weight 129.5 kg Weight 131.598 kg Physical Exam Narrative: General: No acute distress, AOx3, not drowsy, able to complete conversation, chronically sick appearing, on nasal cannula HEENT: PERRLA, pupils bilaterally equal and reactive Chest: Bilateral bronchial breath sounds all over lung vann with occasional coarse crackles and rhonchi CVS: S1-S2 regular, no murmurs, no tachycardia, no gallops, no rubs Abdomen: Soft, nontender, no organomegaly, bowel sounds present, morbidly obese Neuro: No focal deficits, no facial deformity, moving all limbs, weak Data 09/30/22 05:19 09/30/22 05:19 Micro: Microbiology 09/29/22 21:45 Gram Stain - Final Sputum - Expectorated Sputum 09/29/22 16:45 MRSA Culture - Final Nose A&P Assessment and plan (1) Sepsis: Present on admission. Ruled in with leukocytosis, bradycardia. Target organ dysfunction with altered mental status and recurrent hypoglycemia. Source of infection most likely pneumonia in setting of COVID-19 Follow-up blood culture. MRSA swab negative. Urine studies could not be done as patient does not make any urine and refused for straight cath. Discontinue vancomycin as MRSA swab negative. Continue with Zosyn. If patient remains hemodynamically stable most likely can switch to oral antibiotics to finish a course of 10 days on discharge. Keep mean artery pressure 65. Blood pressure is better too high today. Switch midodrine to 5 mg 3 times daily as needed for systolic blood pressure of less than 110 mmHg. If blood pressures continue to remain high can add low-dose amlodipine. Last echocardiogram from January 2022 shows a grossly normal EF, mild MS, mild MR there was a poor study. (2) Acute respiratory failure with hypoxia and hypercapnia: Insetting of COPD exacerbation obstructive sleep apnea secondary to pneumonia from COVID-19. BiPAP nightly Oxygen supplementation keeping saturation over 88%. DuoNebs every 6 hours, budesonide twice daily. (3) Pneumonia due to COVID-19 virus: Treatment as above. Pulmonary toilet with incentive spirometry and flutter valve. Switch from hydrocortisone to dexamethasone 6 mg daily to finish a 10-day course of steroid for COVID-19. (4) Altered mental status: Improving. Most likely in setting of sepsis along with recurrent hypoglycemia and and mild hepatic encephalopathy with elevated ammonia levels along with sundowners. CT head negative for acute abnormality on admission. Frequent reorientation. Sitter at bedside if needed. Start patient on Zoloft 50 mg oral daily along with temazepam 15 mg nightly. Qualifiers: Altered mental status type: somnolence Qualified Code(s): R40.0 - Somnolence (5) Hypoglycemia associated with type 2 diabetes mellitus: Resolved. Blood sugars higher now. Most likely in setting of sepsis along with CKD. Blood sugars higher now A1c 7.1. Patient at home takes Lantus 56 units twice daily, sliding scale. Weaning off of hydrocortisone as above. Continue with Lantus 20 units nightly, high insulin dose protocol. Carb consistent diet. (6) End stage renal disease on dialysis: Monitor BMP. Medical reconciliation done for nephrotoxic drugs. Nephrology consulted for dialysis. (7) Bradycardia: Chronic with atrial fibrillation. Telemetry. Not on any rate limiting drugs. Continue to monitor. (8) Hepatic encephalopathy: Can be the cause of mild altered mental status. Recheck ammonia levels in a.m. Start on lactulose 30 mg every 12 hourly. Monitor bowel movements. (9) Leg swelling: (10) COPD (chronic obstructive pulmonary disease): (11) Obstructive sleep apnea: (12) Comfort measures only status: Goals of care changed as per discussion below. (13) Goals of care, counseling/discussion: Had a detailed discussion about goals of care with patient's son with patient's RN and charge nurse at bedside. Discussion with the patient's son at the bedside regarding goals of care. We discussed currently patient is on comfort measures status which would mean that we will not treat him actively for any pathology but 1 of make sure that he remains comfortable while we will let nature takes its own course which would mean that he would . Son inquired about other possible modalities. He stated he did have a detailed discussion with patient's /DPOA earlier today morning with charge nurse at bedside. We discussed the option would be to treat patient medically while keeping him DNR/DNI and if the blood pressures dropped to treat him with possible central line and pressors versus treat him medically with antibiotics and dialysis and if and when blood pressures drop if oral medications do not help at that point instead of doing pressors and transferring to ICU transition to comfort measures. As per the son he has discussed with patient's /DPOA today morning and they would want to go ahead with DNR/DNI, treatment and dialysis but without pressors and central line if and when needed. Goals of care change in the chart. Patient started on treatment. (14) Calciphylaxis: (15) HTN (hypertension): Plan Goals of care discussion as above. Analgesia: Tylenol as needed, [place] 5 mg every 6 hourly as needed Glycemic control: SSI scale high-dose protocol, Lantus 20 units nightly Nutrition: Renal diabetic dialysis diet, mechanical soft CODE STATUS: As per goals of care discussion above. DNR/DNI. Not okay with consult to ICU for pressors or central line. Okay with PICC line PUD prophylaxis: Protonix DVT prophylaxis: Heparin 5000 every 12 hourly Discharge planning: Back to SNF once medically stable Continue with care at [facility] with telemetry Patient's care discussed in detail with son and spouse at bedside. Discussed various modalities to help him rest including restoral and Zoloft. They are agreeable. Also discussed that if he continues to improve can plan to discharge within next 24 to 48 hours back to skilled nursing on oral antibiotics. Also discussed that he is having sundowning syndrome most likely in setting of viral prodrome and mentation should improve gradually within next few weeks. They all verbalized understanding and are agreeable. All the questions were answered. This documentation was created by [id number] stripe marker software. Every effort was made to ensure accuracy of stripe marker. Any obvious errors or omissions should be clarified with the author of the document. Attestations Medical Necessity Statement*: Requires further hospitalization for management of altered mental status, difficulty in breathing in setting of COVID-19 in a patient with end-stage renal disease on hemodialysis, calciphylaxis Diagnoses Sepsis A41.9 Acute respiratory failure with hypoxia and hypercapnia J96.01; J96.02 Pneumonia due to COVID-19 virus U07.1; J12.82 Altered mental status R40.0 Altered mental status type: somnolence Hypoglycemia associated with type 2 diabetes mellitus E11.649 End stage renal disease on dialysis N18.6; Z99.2 Bradycardia R00.1 Hepatic encephalopathy K76.82 Leg swelling M79.89 COPD (chronic obstructive pulmonary disease) J44.9 Obstructive sleep apnea G47.33 Comfort measures only status Z51.5 Goals of care, counseling/discussion Z71.89 Calciphylaxis E83.59 HTN (hypertension) I10
[2022-09-30 17:10] LABS: Glucose Point of Care 241 mg/dL (70-110)
[2022-09-30 17:27] LABS: ABG PCO2 52.1 mmHg (35-45); Alveolar-Arterial Oxygen Gradi 3.9 mmHg (5-10); Arterial Blood Gas Hematocrit 32.7 % (42-52); Base Excess ABG -1.4 mmol/L (-2.0-2.0); Blood Gas Allen Test Pos; Blood Gas Operator Identificat AMH; Blood Gas Sample Site Radial, right; Blood Gas Sample Type Arterial; Carboxyhemoglobin 1.4 %THgb (0.4-20.1); HCO3 ABG 25.5 mmol/L (22-26); HGB O2 Sat 85.2 % (95-100); Ionized Calcium Level - ABG 1.2 mmol/L (1.1-1.4); Methemoglobin 0.6 % (0.4-1.5); Oxygen Device ROOM AIR; Oxygen Saturation ABG 86.9; PO2 ABG 58.5 mmHg (80.0-100.0); Potassium Level - ABG 5.8 mmol/L (3.5-5.0); Total Hemoglobin 10.7 g/dL (14-18)
[2022-09-30] MEDS: piperacillin-tazobactam 3.375 GM in sodium chloride 0.9% (plus) 50 ML IV (17:51)
[2022-09-30 21:04] LABS: Glucose Point of Care 250 mg/dL (70-110)
[2022-09-30] MEDS: baclofen 10 mg Tablet 5 MG PO (21:39)
[2022-09-30] MEDS: temazepam 15 mg Capsule PO (21:39)
[2022-09-30] MEDS: insulin glargine 100 units/1 mL 20 UNIT SUBCUT (22:20)
[2022-10-01] VITALS (13 sets, daily range): BP systolic 90–159; BP diastolic 55–91; PULSE 46–62; RESP 16–20; TEMP 36.4–37; O2SAT 90–99
[2022-10-01] MEDS: guaiFENesin 100 mg/5 mL UDC 10 mL 200 MG PO ×3 (04:27→22:18)
[2022-10-01 05:14] LABS: Basophils # 0.1 10^3/uL (0.0-0.1); Basophils % 0.9 %; Eosinophils # 0.4 10^3/uL (0.0-0.8); Eosinophils % 2.7 %; Hematocrit 35.4 % (42.0-52.0); Hemoglobin 10.5 g/dL (11.7-16.6); Lymphocytes # 1.4 10^3/uL (0.8-4.8); Lymphocytes % 10.7 %; Mean Corpuscular HGB Conc 29.7 g/dL (30.0-36.0); Mean Corpuscular Hemoglobin 29.7 pg (28.0-34.0); Monocytes # 1.1 10^3/uL (0.2-0.9); Monocytes % 8.3 %; Neutrophils # 9.57 10^3/uL (1.8-7.7); Nucleated Red Blood Cells % 0.2 %; Platelet Count 259 10^3/cmm (130-400); Red Blood Count 3.54 10^6/uL (4.1-5.3); Red Cell Distribution Width 14.7 % (12.1-15.1); White Blood Count 12.9 10^3/uL (4.0-10.0)
[2022-10-01 05:27] LABS: Ammonia 39 umol/L (16-60)
[2022-10-01 05:32] LABS: Alanine Aminotransferase 17 U/L (0-41); Albumin Level 3.5 g/dL (3.5-5.2); Alkaline Phosphatase 101 U/L (40-130); Anion Gap 24.3 (5-19); Aspartate Amino Transferase 17 U/L (0-40); Calcium 9.3 mg/dL (8.5-10.5); Carbon Dioxide 25 mmol/L (22-29); Chloride 96 mmol/L (98-107); Globulin 3.8 g/dL (1.3-4.6); Glomerular Filtration Rate 5.5 mL/min (90-130); Glucose 92 mg/dL (65-115); Osmolality Calculated 317 mOsm/kg (285-295); Potassium 5.3 mmol/L (3.5-5.1); Sodium 140 mmol/L (136-145); Total Bilirubin 0.3 mg/dL (0.15-1.2); Total Protein 7.3 g/dL (6.6-8.7)
[2022-10-01 05:36] LABS: Blood Urea Nitrogen 89 mg/dL (8-23)
[2022-10-01] MEDS: piperacillin-tazobactam 3.375 GM in sodium chloride 0.9% (plus) 50 ML IV ×2 (05:53→17:29)
[2022-10-01 06:19] LABS: Glucose Point of Care 93 mg/dL (70-110)
[2022-10-01] MEDS: ipratropium-albuterol 3 mL Neb INHALATION ×2 (08:00→19:33)
[2022-10-01] MEDS: budesonide 0.5 mg/2 mL Neb INHALATION ×2 (08:00→19:32)
[2022-10-01] MEDS: cholecalciferol (vitamin D3) 1,000 unit Tablet 1000 UNIT PO (09:29)
[2022-10-01] MEDS: dexamethasone 4 mg Tablet 6 MG PO (09:29)
[2022-10-01] MEDS: pantoprazole 40 mg SDV IVP (09:29)
[2022-10-01] MEDS: gabapentin 300 mg Capsule PO (09:30)
[2022-10-01] MEDS: apixaban 5 mg Tablet PO (09:30)
[2022-10-01] MEDS: benzonatate 100 mg Capsule 200 MG PO ×3 (09:30→19:52)
[2022-10-01] MEDS: sertraline 50 mg Tablet PO (09:30)
[2022-10-01 10:54] LABS: Glucose Point of Care 123 mg/dL (70-110)
[2022-10-01] MEDS: acetaminophen 325 mg Tablet 650 MG PO (11:23)
--- NOTE | 2022-10-01 13:06 | PM.PN ---
Subjective Subjective: no new complaints Medications: Reviewed: Yes Vitals/I&O/Wt Last Vital Signs Temp 97.5 F L 10/01/22 12:00 Pulse 53 L 10/01/22 12:00 Resp 17 10/01/22 12:00 BP 140/65 10/01/22 12:00 Pulse Ox 99 10/01/22 12:00 O2 Del Method 10/01/22 07:59 O2 Flow Rate 2 10/01/22 02:22 FiO2 30 09/29/22 20:50 09/30/22 10/01/22 10/01/22 22:59 06:59 14:59 Intake Total 290 / 690 410 / 410 Balance 290 / 690 410 / 410 Weight last 48 hrs Weight 129.5 kg Physical Exam Narrative: No acute distress no edema Data 10/01/22 04:32 10/01/22 04:32 Micro: Microbiology 09/29/22 21:45 Gram Stain - Final Sputum - Expectorated Sputum 09/29/22 16:45 MRSA Culture - Final Nose A&P Assessment and plan (1) End stage renal disease on dialysis: Plan 1. End-stage renal disease: On TTS schedule as outpatient, HD today 2. Acute on chronic respiratory failure: Has primary respiratory acidosis, management per primary team 3. Borderline low blood pressures: Continue midodrine 4. Chronic metabolic alkalosis: Likely compensation for chronic respiratory acidosis 5. Anemia: Mild, monitor 6. Patient with baseline poor quality of life currently DNR/DNI, no pressors but wishes to continue dialysis for now. Patient evaluated using audiovisual cart. Time spent 35 minutes Attestations Medical Necessity Statement*: Requires further hospitalization for management of altered mental status, difficulty in breathing in setting of COVID-19 in a patient with end-stage renal disease on hemodialysis, calciphylaxis Coding Level of Care Code Acute Code for Chg Fwd Diagnoses End stage renal disease on dialysis N18.6; Z99.2
--- NOTE | 2022-10-01 13:33 | PC.HD ---
Delay in bringing patient to dialysis room as patient wished to eat his lunch before going for his treatment. Patient was assessed. Arterial needle placed without issue. Venous access required two sticks. First venous stick with no blood return. Needle pulled, pressure held, hemostasis achieved. A second venous needle access was successfully placed above the original site. Treatment initiated without difficulty.
[2022-10-01 16:20] LABS: Glucose Point of Care 230 mg/dL (70-110)
[2022-10-01 17:06] LABS: Glucose Point of Care 268 mg/dL (70-110)
[2022-10-01] MEDS: insulin lispro 100 unit/1 mL SUBCUT ×2 (17:34→22:18)
--- NOTE | 2022-10-01 19:21 | P.PN_ITS ---
Subjective Subjective: Patient continues to cough. No new complaints. Not as oriented today per nursing staff. Restoril was resumed yesterday. He did sleep a little better. Nephrology is following for dialysis. Medications: Reviewed: Yes Vitals/I&O/Wt Last Vital Signs Temp 97.9 F 10/01/22 16:55 Pulse 59 L 10/01/22 16:55 Resp 16 10/01/22 16:55 BP 90/60 10/01/22 16:55 Pulse Ox 99 10/01/22 12:00 O2 Del Method 10/01/22 07:59 O2 Flow Rate 2 10/01/22 02:22 FiO2 30 09/29/22 20:50 10/01/22 10/01/22 10/01/22 06:59 14:59 22:59 Intake Total 770 / 770 300 / 1070 Output Total 2800 / 2800 Balance 770 / 770 -2500 / -1730 Weight last 48 hrs Weight 126.9 kg Weight 129.5 kg Physical Exam Narrative: Awake and alert. Frequent cough. He is oriented to person, place and knows that he is not feeling well but he also asked for a chocolate taco from [employer]. He has coarse breath sounds. Regular bradycardic rhythm. Extremities are notable for chronic stasis changes with some scattered serous bulla and skin tears. No pitting edema. Data 10/01/22 04:32 10/01/22 04:32 Micro: Microbiology 09/29/22 21:45 Gram Stain - Final Sputum - Expectorated Sputum Sputum Culture - Preliminary A&P Assessment and plan (1) Sepsis: Resolving (2) Acute respiratory failure with hypoxia and hypercapnia: Improving (3) Pneumonia due to COVID-19 virus: Improving slowly still with significant cough (4) Altered mental status: Not yet back to baseline Qualifiers: Altered mental status type: somnolence Qualified Code(s): R40.0 - Somnolence (5) Hypoglycemia associated with type 2 diabetes mellitus: Blood sugar 39 at presentation has been better since (6) End stage renal disease on dialysis: Nephrology following for dialysis; usual schedule is Tuesdays, and Saturdays but received dialysis today (7) Bradycardia: In a patient with known atrial fibrillation with slow ventricular response; pacemaker has been recommended in the past though declined. (8) Chronic anticoagulation: On Eliquis (9) Hepatic encephalopathy: Ammonia 73 at admission, normalized presently (10) Leg swelling: Improved (11) COPD (chronic obstructive pulmonary disease): Exacerbated secondary to #3 (12) Obstructive sleep apnea: (13) Calciphylaxis: (14) HTN (hypertension): History with variable blood pressures this hospital stay (15) Goals of care, counseling/discussion: To be allowed natural but treating otherwise Plan Decreased dose of Eliquis Continue dexamethasone Oxygen therapy and BiPAP as needed > primarily needing at night currently Status post Paxlovid Continue antitussives and other supportive care Cultures remain no growth to date, remains on antibiotics empirically, monitor skin and other clinical findings another 24 hours perform aching decision about continued therapy; white count continues to trend down Appreciate nephrology assistance with dialysis Telemetry monitoring Monitor blood pressures Currently on midodrine 3 times daily as needed On PPI Will continue on home Restoril and Zoloft, keeping an eye on mental status Supportive care otherwise To be allowed natural but treating otherwise Discussed with case management discharge options with known case of COVID in thi s patient who came from the retirement on treatment. If cultures remain negative and no new issues arise and renal function stabilizes to baseline anticipate discharge back to skilled facility for continued care soon. Attestations Medical Necessity Statement*: Requires ongoing inpatient stay for continued management as described. Currently being monitored, receiving regular dialysis and remains on IV antibiotics. and Moderate Time for a total of 35 minutes, includes reviewing past or interval history, examining/interviewing patient, placing orders, discussing plan of care with staff and documenting encounter Diagnoses Sepsis A41.9 Acute respiratory failure with hypoxia and hypercapnia J96.01; J96.02 Pneumonia due to COVID-19 virus U07.1; J12.82 Altered mental status R40.0 Altered mental status type: somnolence Hypoglycemia associated with type 2 diabetes mellitus E11.649 End stage renal disease on dialysis N18.6; Z99.2 Bradycardia R00.1 Chronic anticoagulation Z79.01 Hepatic encephalopathy K76.82 Leg swelling M79.89 COPD (chronic obstructive pulmonary disease) J44.9 Obstructive sleep apnea G47.33 Calciphylaxis E83.59 HTN (hypertension) I10 Goals of care, counseling/discussion Z71.89
[2022-10-01] MEDS: apixaban 5 mg Tablet 2.5 MG PO (19:53)
[2022-10-01] MEDS: lactulose oral liq 20 gm/30 mL UDC PO (19:53)
[2022-10-01] MEDS: temazepam 15 mg Capsule PO (19:53)
[2022-10-01] MEDS: baclofen 10 mg Tablet 5 MG PO (19:53)
[2022-10-01 21:27] LABS: Glucose Point of Care 321 mg/dL (70-110)
[2022-10-01] MEDS: insulin glargine 100 units/1 mL 15 UNIT SUBCUT (23:40)
[2022-10-02] VITALS (13 sets, daily range): BP systolic 128–183; BP diastolic 45–89; PULSE 45–60; RESP 12–21; TEMP 36.3–36.7; O2SAT 92–98
[2022-10-02 05:38] LABS: Basophils % 0.2 %; Eosinophils % 0.1 %; Hematocrit 34.4 % (42.0-52.0); Hemoglobin 10.3 g/dL (11.7-16.6); Lymphocytes # 0.7 10^3/uL (0.8-4.8); Lymphocytes % 4.7 %; Mean Corpuscular HGB Conc 29.9 g/dL (30.0-36.0); Mean Corpuscular Hemoglobin 29.5 pg (28.0-34.0); Mean Corpuscular Volume 98.6 fl (80-94); Mean Platelet Volume 10.5 fL (7.4-10.4); Monocytes # 0.9 10^3/uL (0.2-0.9); Monocytes % 6.3 %; Neutrophils # 12.43 10^3/uL (1.8-7.7); Neutrophils % 86.1 %; Nucleated Red Blood Cells % 0.3 %; Platelet Count 255 10^3/cmm (130-400); Red Blood Count 3.49 10^6/uL (4.1-5.3); Red Cell Distribution Width 14.6 % (12.1-15.1); White Blood Count 14.5 10^3/uL (4.0-10.0)
[2022-10-02 05:58] LABS: Blood Urea Nitrogen 69 mg/dL (8-23); Calcium 9.3 mg/dL (8.5-10.5); Carbon Dioxide 25 mmol/L (22-29); Chloride 93 mmol/L (98-107); Glomerular Filtration Rate 6.6 mL/min (90-130); Glucose 236 mg/dL (65-115); Magnesium 2.3 mg/dL (1.7-2.3); Osmolality Calculated 308 mOsm/kg (285-295); Phosphorus 6.5 mg/dL (2.5-4.5); Sodium 135 mmol/L (136-145)
[2022-10-02] MEDS: piperacillin-tazobactam 3.375 GM in sodium chloride 0.9% (plus) 50 ML IV ×2 (05:59→17:39)
[2022-10-02 06:04] LABS: Procalcitonin 5.63 ng/mL (0-0.5)
[2022-10-02] MEDS: guaiFENesin 100 mg/5 mL UDC 10 mL 200 MG PO (06:05)
[2022-10-02 06:30] LABS: Glucose Point of Care 226 mg/dL (70-110)
[2022-10-02 08:51] LABS: Glucose Point of Care 206 mg/dL (70-110)
[2022-10-02] MEDS: budesonide 0.5 mg/2 mL Neb INHALATION ×2 (08:52→21:19)
[2022-10-02] MEDS: ipratropium-albuterol 3 mL Neb INHALATION ×3 (08:52→21:20)
[2022-10-02] MEDS: insulin lispro 100 unit/1 mL SUBCUT ×4 (09:35→21:11)
[2022-10-02] MEDS: dexamethasone 4 mg Tablet 6 MG PO (09:37)
[2022-10-02] MEDS: gabapentin 300 mg Capsule PO (09:38)
[2022-10-02] MEDS: cholecalciferol (vitamin D3) 1,000 unit Tablet 1000 UNIT PO (09:38)
[2022-10-02] MEDS: benzonatate 100 mg Capsule 200 MG PO ×3 (09:38→20:23)
[2022-10-02] MEDS: sertraline 50 mg Tablet PO (09:38)
[2022-10-02] MEDS: apixaban 5 mg Tablet 2.5 MG PO ×2 (09:50→20:23)
--- NOTE | 2022-10-02 10:09 | PM.PN ---
Subjective Subjective: no new complaints Medications: Reviewed: Yes Vitals/I&O/Wt Last Vital Signs Temp 97.8 F 10/02/22 07:19 Pulse 50 L 10/02/22 09:04 Resp 18 10/02/22 08:53 BP 166/89 10/02/22 07:19 Pulse Ox 96 10/02/22 08:53 O2 Del Method 10/02/22 08:53 O2 Flow Rate 2 10/01/22 02:22 FiO2 30 09/29/22 20:50 10/01/22 10/02/22 10/02/22 22:59 06:59 14:59 Intake Total 830 / 1600 480 / 2080 Output Total 2800 / 2800 Balance -1970 / -1200 480 / -720 Weight last 48 hrs Weight 126.9 kg Physical Exam Narrative: No acute distress no edema Data 10/02/22 04:42 10/02/22 04:42 Micro: Microbiology 09/29/22 21:45 Gram Stain - Final Sputum - Expectorated Sputum Sputum Culture - Final A&P Assessment and plan (1) End stage renal disease on dialysis: Plan 1. End-stage renal disease: On TTS schedule as outpatient, Next HD tuesday 2. Acute on chronic respiratory failure: Has primary respiratory acidosis, management per primary team 3. Borderline low blood pressures: Continue midodrine 4. Chronic metabolic alkalosis: Likely compensation for chronic respiratory acidosis 5. Anemia: Mild, monitor 6. Patient with baseline poor quality of life currently DNR/DNI, no pressors but wishes to continue dialysis for now. Patient evaluated using audiovisual cart. Time spent 35 minutes Attestations Medical Necessity Statement*: per medicine team Coding Level of Care Code Acute Code for Chg Fwd Diagnoses End stage renal disease on dialysis N18.6; Z99.2
[2022-10-02] MEDS: pantoprazole 40 mg SDV IVP (10:28)
--- NOTE | 2022-10-02 10:45 | PC.SOCIAL ---
IMM Update pg 2 of [facility] udpated and reviewed w/ patient and his . Copy provided and copy in chart dated, and initialed.
[2022-10-02 11:54] LABS: Glucose Point of Care 250 mg/dL (70-110)
[2022-10-02 17:13] LABS: Glucose Point of Care 261 mg/dL (70-110)
[2022-10-02] MEDS: temazepam 15 mg Capsule PO (20:23)
[2022-10-02 20:43] LABS: Glucose Point of Care 261 mg/dL (70-110)
[2022-10-02] MEDS: insulin glargine 100 units/1 mL 15 UNIT SUBCUT (21:11)
[2022-10-02] MEDS: lactulose oral liq 20 gm/30 mL UDC PO (21:11)
--- NOTE | 2022-10-02 21:39 | PM.PN ---
Subjective Subjective: Patient doing a little bit better today. Orientation waxes and wanes. No new complaints. Usual dialysis is Tuesdays, and Saturdays. He had dialysis here on Tuesday. Procalcitonin is improved but not normalized. White count is up. He remains on Zosyn at renal dosing. Remains bradycardic but blood pressures have been stable. Intermittent low temperatures. Vitals/I&O/Wt Last Vital Signs Temp 97.4 F L 10/02/22 20:00 Pulse 50 L 10/02/22 20:00 Resp 18 10/02/22 20:00 BP 128/64 10/02/22 20:00 Pulse Ox 95 10/02/22 20:00 O2 Del Method 10/02/22 20:00 O2 Flow Rate 2 10/02/22 20:00 FiO2 30 09/29/22 20:50 10/02/22 10/02/22 10/02/22 06:59 14:59 22:59 Intake Total 480 / 2080 404 / 404 Balance 480 / -720 404 / 404 Weight last 48 hrs Weight 126.9 kg Physical Exam Narrative: Awake and alert. Not coughing as much. No change in pulmonary exam. Regular bradycardic rhythm remains. No increase size of bulla noted to lower extremities yesterday. No pitting edema. Data 10/02/22 04:42 10/02/22 04:42 Other Labs: Laboratory Tests 09/29/22 10/02/22 04:56 04:42 Procalcitonin 11.56 H 5.63 H Micro: Microbiology 09/27/22 21:10 Blood Culture - Final Blood NO GROWTH AFTER 5 DAYS 09/27/22 21:10 Blood Culture - Final Blood NO GROWTH AFTER 5 DAYS 09/29/22 21:45 Gram Stain - Final Sputum - Expectorated Sputum Sputum Culture - Final A&P Assessment and plan (1) Sepsis: Resolving (2) Acute respiratory failure with hypoxia and hypercapnia: Improving (3) Pneumonia due to COVID-19 virus: Improving, cannot completely rule out a bacterial component particularly with elevation in procalcitonin though cultures have remained negative (4) Altered mental status: Nearer to baseline Qualifiers: Altered mental status type: somnolence Qualified Code(s): R40.0 - Somnolence (5) Hypoglycemia associated with type 2 diabetes mellitus: Blood sugar 39 at presentation has been better since; we will have to watch as comes off of dexamethasone treatment for COVID (6) End stage renal disease on dialysis: Nephrology following for dialysis; usual schedule is Tuesdays, and Saturdays, on a MWF schedule here (7) Bradycardia: In a patient with known atrial fibrillation with slow ventricular response; pacemaker has been recommended in the past though declined (8) Chronic anticoagulation: On Eliquis (9) Hepatic encephalopathy: Ammonia 73 at admission, normalized presently (10) Leg swelling: Improved, bullae stable (11) COPD (chronic obstructive pulmonary disease): Exacerbated secondary to #3 (12) Obstructive sleep apnea: (13) Calciphylaxis: (14) HTN (hypertension): History with variable blood pressures this hospital stay (15) Goals of care, counseling/discussion: To be allowed natural but treating otherwise Plan On Eliquis Continue dexamethasone We will again adjust long-acting insulin, monitoring blood sugars Oxygen therapy and BiPAP as needed > primarily needing at night currently Status post Paxlovid Continue antitussives and other supportive care Cultures remain no growth to date, remains on antibiotics empirically, Appreciate nephrology assistance with dialysis Telemetry monitoring Monitor blood pressures Currently on midodrine 3 times daily as needed On PPI Will continue on home Restoril and Zoloft, keeping an eye on mental status On home gabapentin, Lokelma, Zoloft Off of home statin therapy Supportive care otherwise To be allowed natural but treating otherwise At discharge plan disposition is back to [facility] Medical Necessity Statement*: Requires ongoing inpatient stay for continued adjustment of medications and management as described. Remains on IV antibiotics and requiring adjustments to insulin therapy with steroid treatment. He is off of his usual dialysis schedule presently and with acute issues recently at high risk of decompensation outside of the hospital at the present time. No other issues and plans as noted above. Coding Level of Care Code 02763 Moderate Time for a total of 35 minutes, includes reviewing past or interval history, examining/interviewing patient, placing orders, discussing plan of care with staff and documenting encounter Diagnoses Sepsis A41.9 Acute respiratory failure with hypoxia and hypercapnia J96.01; J96.02 Pneumonia due to COVID-19 virus U07.1; J12.82 Altered mental status R40.0 Altered mental status type: somnolence Hypoglycemia associated with type 2 diabetes mellitus E11.649 End stage renal disease on dialysis N18.6; Z99.2 Bradycardia R00.1 Chronic anticoagulation Z79.01 Hepatic encephalopathy K76.82 Leg swelling M79.89 COPD (chronic obstructive pulmonary disease) J44.9 Obstructive sleep apnea G47.33 Calciphylaxis E83.59 HTN (hypertension) I10 Goals of care, counseling/discussion Z71.89
[2022-10-03] VITALS (12 sets, daily range): BP systolic 117–168; BP diastolic 45–71; PULSE 42–60; RESP 16–20; TEMP 36.3–37.1; O2SAT 92–100
[2022-10-03] MEDS: ipratropium-albuterol 3 mL Neb INHALATION ×4 (02:27→21:59)
[2022-10-03 06:04] LABS: Basophils % 0.2 %; Eosinophils % 0.3 %; Hematocrit 34.6 % (42.0-52.0); Hemoglobin 10.6 g/dL (11.7-16.6); Lymphocytes # 0.8 10^3/uL (0.8-4.8); Lymphocytes % 5.6 %; Mean Corpuscular HGB Conc 30.6 g/dL (30.0-36.0); Mean Corpuscular Hemoglobin 29.8 pg (28.0-34.0); Mean Corpuscular Volume 97.2 fl (80-94); Mean Platelet Volume 10.1 fL (7.4-10.4); Monocytes # 0.8 10^3/uL (0.2-0.9); Monocytes % 5.8 %; Neutrophils % 85.7 %; Nucleated Red Blood Cells % 0 %; Platelet Count 259 10^3/cmm (130-400); Red Blood Count 3.56 10^6/uL (4.1-5.3); Red Cell Distribution Width 14.6 % (12.1-15.1); White Blood Count 14.5 10^3/uL (4.0-10.0)
[2022-10-03] MEDS: piperacillin-tazobactam 3.375 GM in sodium chloride 0.9% (plus) 50 ML IV (06:16)
[2022-10-03 06:23] LABS: Calcium 9.5 mg/dL (8.5-10.5); Carbon Dioxide 23 mmol/L (22-29); Chloride 91 mmol/L (98-107); Glucose 197 mg/dL (65-115); Magnesium 2.5 mg/dL (1.7-2.3); Osmolality Calculated 308 mOsm/kg (285-295); Phosphorus 7.5 mg/dL (2.5-4.5); Sodium 133 mmol/L (136-145)
[2022-10-03 06:27] LABS: Blood Urea Nitrogen 87 mg/dL (8-23)
[2022-10-03 06:39] LABS: Glucose Point of Care 184 mg/dL (70-110)
[2022-10-03] MEDS: budesonide 0.5 mg/2 mL Neb INHALATION ×2 (09:06→21:59)
[2022-10-03] MEDS: pantoprazole 40 mg SDV IVP (10:13)
[2022-10-03] MEDS: dexamethasone 4 mg Tablet 6 MG PO (10:14)
[2022-10-03] MEDS: gabapentin 300 mg Capsule PO (10:14)
[2022-10-03] MEDS: sennosides-docusate Tablet 1 TAB PO ×2 (10:14→17:16)
[2022-10-03] MEDS: cholecalciferol (vitamin D3) 1,000 unit Tablet 1000 UNIT PO (10:14)
[2022-10-03] MEDS: benzonatate 100 mg Capsule 200 MG PO ×2 (10:14→17:15)
[2022-10-03] MEDS: lactulose oral liq 20 gm/30 mL UDC PO (10:15)
[2022-10-03] MEDS: sertraline 50 mg Tablet PO (10:15)
[2022-10-03] MEDS: insulin lispro 100 unit/1 mL SUBCUT ×4 (10:20→22:12)
[2022-10-03] MEDS: apixaban 5 mg Tablet 2.5 MG PO (10:21)
--- NOTE | 2022-10-03 10:27 | PM.PN ---
Subjective Subjective: no new complaints Medications: Reviewed: Yes Vitals/I&O/Wt Last Vital Signs Temp 97.5 F L 10/03/22 07:46 Pulse 56 L 10/03/22 08:00 Resp 17 10/03/22 08:00 BP 130/68 10/03/22 07:46 Pulse Ox 95 10/03/22 08:00 O2 Del Method 10/03/22 08:00 O2 Flow Rate 2 10/02/22 20:00 FiO2 30 09/29/22 20:50 10/02/22 10/03/22 10/03/22 22:59 06:59 14:59 Intake Total 290 / 694 120 / 814 360 / 360 Balance 290 / 694 120 / 814 360 / 360 Weight last 48 hrs Weight 127.006 kg Weight 126.9 kg Physical Exam Narrative: No acute distress no edema Data 10/03/22 05:55 10/03/22 05:55 Micro: Microbiology 09/27/22 21:10 Blood Culture - Final Blood NO GROWTH AFTER 5 DAYS 09/27/22 21:10 Blood Culture - Final Blood NO GROWTH AFTER 5 DAYS 09/29/22 21:45 Gram Stain - Final Sputum - Expectorated Sputum Sputum Culture - Final A&P Assessment and plan (1) End stage renal disease on dialysis: Plan 1. End-stage renal disease: On TTS schedule as outpatient, Next HD tuesday 2. Acute on chronic respiratory failure: Has primary respiratory acidosis, management per primary team 3. Borderline low blood pressures: Continue midodrine 4. Chronic metabolic alkalosis: Likely compensation for chronic respiratory acidosis 5. Anemia: Mild, monitor 6. Patient with baseline poor quality of life currently DNR/DNI, no pressors but wishes to continue dialysis for now. Patient evaluated using audiovisual cart. Time spent 35 minutes Attestations Medical Necessity Statement*: per medicine team Coding Level of Care Code Acute Code for Chg Fwd Diagnoses End stage renal disease on dialysis N18.6; Z99.2
[2022-10-03 12:07] LABS: Glucose Point of Care 304 mg/dL (70-110)
[2022-10-03 17:08] LABS: Glucose Point of Care 345 mg/dL (70-110)
[2022-10-03] MEDS: sevelamer 800 mg Tablet 1600 MG PO (17:15)
--- NOTE | 2022-10-03 18:44 | PC.NURSE ---
PT PULLED OUT IV. DR. GERMAN STATES THAT PT IV ABT MAY BE HELD DUE TO BEING HARD STICK AND HAVING FISTULAS IN BOTH ARMS.
[2022-10-03 21:54] LABS: Glucose Point of Care 332 mg/dL (70-110)
[2022-10-03] MEDS: insulin glargine 100 units/1 mL 17 UNIT SUBCUT (22:12)
--- NOTE | 2022-10-03 22:39 | PM.PN ---
Subjective Subjective: No new issues today beyond him pulling out his IV. IV medications include Zosyn and Protonix. Not as talkative with me today. Blood sugars are higher today. Vitals/I&O/Wt Last Vital Signs Temp 98.8 F 10/03/22 20:43 Pulse 55 L 10/03/22 22:01 Resp 20 H 10/03/22 22:01 BP 142/60 10/03/22 20:43 Pulse Ox 99 10/03/22 22:01 O2 Del Method 10/03/22 14:00 O2 Flow Rate 0 10/03/22 08:00 FiO2 30 10/03/22 22:01 10/03/22 10/03/22 10/03/22 06:59 14:59 22:59 Intake Total 120 / 814 600 / 600 290 / 890 Balance 120 / 814 600 / 600 290 / 890 Weight last 48 hrs Weight 127.006 kg Physical Exam Narrative: Sleepy today. Lungs are improved. Remains bradycardic. The bulla on the right medial calf is larger today though still with serous fluid, now oozing from it. It is 4-5 cm in diameter. Skin tear on the right lower extremity unchanged. Other bulla to the right leg are the same size. Bulla to left leg approximately quarter sized, also unchanged. Data 10/03/22 05:55 10/03/22 05:55 Micro: Microbiology 09/27/22 21:10 Blood Culture - Final Blood NO GROWTH AFTER 5 DAYS 09/27/22 21:10 Blood Culture - Final Blood NO GROWTH AFTER 5 DAYS A&P Assessment and plan (1) Sepsis: Resolving (2) Acute respiratory failure with hypoxia and hypercapnia: Improving (3) Pneumonia due to COVID-19 virus: Improving, cannot completely rule out a bacterial component particularly with elevation in procalcitonin though cultures have remained negative (4) Altered mental status: Nearer to baseline Qualifiers: Altered mental status type: somnolence Qualified Code(s): R40.0 - Somnolence (5) Hypoglycemia associated with type 2 diabetes mellitus: Blood sugar 39 at presentation has been better since; we will have to watch as comes off of dexamethasone treatment for COVID. Today is day 3 of 6mg daily. (6) End stage renal disease on dialysis: Nephrology following for dialysis; usual schedule is Tuesdays, and Saturdays, on a MWF schedule here (7) Bradycardia: In a patient with known atrial fibrillation with slow ventricular response; pacemaker has been recommended in the past though declined (8) Chronic anticoagulation: On Eliquis (9) Hepatic encephalopathy: Ammonia 73 at admission, normalized (10) Leg swelling: Improved edema but some increase in weeping noted today to RLE along with an enlarged bulla. Keep legs down a lot as a contributing factor. (11) COPD (chronic obstructive pulmonary disease): Exacerbated secondary to #3 (12) Obstructive sleep apnea: On AVAPS with sleep (13) Calciphylaxis: (14) HTN (hypertension): History with variable blood pressures this hospital stay (15) Goals of care, counseling/discussion: To be allowed natural but treating otherwise Plan On Eliquis On dexamethason day 09/03 Increase long-acting insulin dose, monitoring blood sugars Oxygen therapy and BiPAP as needed Status post Paxlovid Continue antitussives and other supportive care Cultures remain no growth to date Changed to oral Augmentin Change to oral PPI Appreciate nephrology assistance with dialysis Telemetry monitoring Monitor blood pressures Currently on midodrine 3 times daily as needed On PPI Will continue on home Restoril and Zoloft, keeping an eye on mental status On home gabapentin, Lokelma, renvela, Zoloft Off of home statin therapy and a few other nonformulary medicaitons Has not had multiple potentially sedating medications while here so I have stopped them Supportive care otherwise To be allowed natural but treating otherwise He has a poor quality of life. If does not show improvement on return to normal setting, consideration should be given to stopping hemodialysis and transitioning to comfort care in consultation with patients primary provider Tentative plan is to discharge back to [facility] after dialysis tomorrow unless new issues arise Attestations Medical Necessity Statement*: Ongoing care with planned dialysis tomorrow here then to transition back to usual TTS schedule Diagnoses Sepsis A41.9 Acute respiratory failure with hypoxia and hypercapnia J96.01; J96.02 Pneumonia due to COVID-19 virus U07.1; J12.82 Altered mental status R40.0 Altered mental status type: somnolence Hypoglycemia associated with type 2 diabetes mellitus E11.649 End stage renal disease on dialysis N18.6; Z99.2 Bradycardia R00.1 Chronic anticoagulation Z79.01 Hepatic encephalopathy K76.82 Leg swelling M79.89 COPD (chronic obstructive pulmonary disease) J44.9 Obstructive sleep apnea G47.33 Calciphylaxis E83.59 HTN (hypertension) I10 Goals of care, counseling/discussion Z71.89
[2022-10-03 23:12] LABS: ABG PCO2 50.9 mmHg (35-45); ABG PH Result 7.28 (7.35-7.45); Alveolar-Arterial Oxygen Gradi 2.2 mmHg (5-10); Arterial Blood Gas Hematocrit 32.2 % (42-52); Base Excess ABG -2.9 mmol/L (-2.0-2.0); Blood Gas Allen Test Pos; Blood Gas Sample Site Radial, left; Blood Gas Sample Type Arterial; Carboxyhemoglobin 1.3 %THgb (0.4-20.1); HGB O2 Sat 97.6 % (95-100); Ionized Calcium Level - ABG 1.2 mmol/L (1.1-1.4); Methemoglobin 0.4 % (0.4-1.5); Oxygen Device BIPAP; Oxygen Saturation ABG 99.3; Potassium Level - ABG 5.3 mmol/L (3.5-5.0); Total Hemoglobin 10.5 g/dL (14-18)
[2022-10-04] VITALS (16 sets, daily range): BP systolic 124–142; BP diastolic 46–77; PULSE 39–66; RESP 15–22; TEMP 35.7–37; O2SAT 90–100
[2022-10-04] MEDS: ipratropium-albuterol 3 mL Neb INHALATION ×4 (02:57→19:49)
[2022-10-04 06:15] LABS: Glucose Point of Care 236 mg/dL (70-110)
[2022-10-04 07:07] LABS: Basophils % 0.1 %; Eosinophils % 0.1 %; Hematocrit 34.3 % (42.0-52.0); Hemoglobin 10.5 g/dL (11.7-16.6); Lymphocytes # 0.6 10^3/uL (0.8-4.8); Lymphocytes % 4.6 %; Mean Corpuscular HGB Conc 30.6 g/dL (30.0-36.0); Mean Corpuscular Hemoglobin 29.9 pg (28.0-34.0); Mean Corpuscular Volume 97.7 fl (80-94); Mean Platelet Volume 10.3 fL (7.4-10.4); Monocytes # 0.8 10^3/uL (0.2-0.9); Monocytes % 5.8 %; Neutrophils # 11.87 10^3/uL (1.8-7.7); Neutrophils % 87.8 %; Nucleated Red Blood Cells % 0.1 %; Platelet Count 213 10^3/cmm (130-400); Red Blood Count 3.51 10^6/uL (4.1-5.3); White Blood Count 13.5 10^3/uL (4.0-10.0)
[2022-10-04 07:16] LABS: Anion Gap 25.4 (5-19); Calcium 9.1 mg/dL (8.5-10.5); Carbon Dioxide 23 mmol/L (22-29); Chloride 91 mmol/L (98-107); Glomerular Filtration Rate 5.2 mL/min (90-130); Glucose 229 mg/dL (65-115); Magnesium 2.7 mg/dL (1.7-2.3); Osmolality Calculated 317 mOsm/kg (285-295); Potassium 5.4 mmol/L (3.5-5.1); Sodium 134 mmol/L (136-145)
[2022-10-04] MEDS: budesonide 0.5 mg/2 mL Neb INHALATION ×2 (07:41→19:49)
[2022-10-04 07:55] LABS: Blood Urea Nitrogen 102 mg/dL (8-23)
[2022-10-04 07:56] LABS: Phosphorus 9.4 mg/dL (2.5-4.5)
[2022-10-04] MEDS: gabapentin 300 mg Capsule PO (09:14)
[2022-10-04] MEDS: pantoprazole DR 40 mg Tablet PO (09:14)
[2022-10-04] MEDS: sevelamer 800 mg Tablet 1600 MG PO ×3 (09:14→20:33)
[2022-10-04] MEDS: cholecalciferol (vitamin D3) 1,000 unit Tablet 1000 UNIT PO (09:14)
[2022-10-04] MEDS: dexamethasone 4 mg Tablet 6 MG PO (09:14)
[2022-10-04] MEDS: sertraline 50 mg Tablet PO (09:14)
[2022-10-04] MEDS: sennosides-docusate Tablet 1 TAB PO (09:14)
[2022-10-04] MEDS: insulin lispro 100 unit/1 mL SUBCUT ×4 (09:15→20:40)
[2022-10-04] MEDS: amoxicillin-clav 500-125 mg Tablet 1 TAB PO ×3 (09:15→20:32)
[2022-10-04] MEDS: benzonatate 100 mg Capsule 200 MG PO ×3 (09:15→20:33)
[2022-10-04] MEDS: lactulose oral liq 20 gm/30 mL UDC PO ×2 (09:18→20:33)
[2022-10-04] MEDS: apixaban 5 mg Tablet 2.5 MG PO ×2 (09:21→20:32)
--- NOTE | 2022-10-04 10:38 | PC.SOCIAL ---
IMM UPDATE Imm updated with patient's Domi, copy of page 2 explained, Domi verbalized understanding. Copy in chart initialed, dated, and timed.
[2022-10-04 12:41] LABS: Glucose Point of Care 212 mg/dL (70-110)
--- NOTE | 2022-10-04 13:10 | PC.HD ---
This RN was able to access LAVF with arterial needle without difficulty. When attempting to access with venous needle, this RN was not able to successfully cannulate after attempts x3. Arturo Licea, RN, came to the hospital to attempt cannulation, yet was also unable to successfully cannulate. Of note, while awaiting Arturo's arrival, this RN flushed the arterial needle with NSS in an attempt to keep it patent. Unfortunately, when re-flushing the arterial needle, it was noted to be clotted with inability to draw back. Arterial needle was pulled and pressure was held. Arturo then attempted cannulation of both arterial and venous, but was also unsuccessful. Bruit and thrill were noted to be dampened, suggesting a possible clot or other issue with patient's fistula. This information was relayed to Dr. Perales, who requeste that the patient be transferred to [place] for fistulogram with dialysis to follow. Primary RN was notified, and arrangements were being made for patient to go to [facility] in [place].
[2022-10-04 13:31] LABS: Glucose Point of Care 232 mg/dL (70-110)
[2022-10-04 16:44] LABS: Glucose Point of Care 277 mg/dL (70-110)
[2022-10-04 19:14] LABS: Calcium 8.8 mg/dL (8.5-10.5); Carbon Dioxide 23 mmol/L (22-29); Chloride 87 mmol/L (98-107); Glomerular Filtration Rate 5.5 mL/min (90-130); Glucose 359 mg/dL (65-115); Osmolality Calculated 318 mOsm/kg (285-295); Sodium 129 mmol/L (136-145)
--- NOTE | 2022-10-04 19:26 | P.PN_ITS ---
Subjective Subjective: States his breathing is doing okay. He is having little bit of diarrhea. Denies chest pain or pressure. Not short of breath. Medications: Reviewed: Yes Vitals/I&O/Wt Last Vital Signs Temp 97.9 F 10/04/22 15:45 Pulse 50 L 10/04/22 15:45 Resp 15 10/04/22 15:45 BP 124/46 10/04/22 15:45 Pulse Ox 93 10/04/22 15:45 O2 Del Method 10/04/22 15:45 O2 Flow Rate 35 10/04/22 07:49 FiO2 30 10/04/22 07:38 10/04/22 10/04/22 10/04/22 06:59 14:59 22:59 Intake Total 0 / 890 1325 / 1325 Balance 0 / 890 1325 / 1325 Weight last 48 hrs Weight 127.006 kg Physical Exam Narrative: In dialysis room. Const: COMMON NORMALS: patient oriented x3 and alert GENERAL APPEARANCE: cooperative ORIENTATION/CONSCIOUSNESS: Yes awake HENMT: COMMON NORMALS: oropharynx normal Neck/C-Spine: COMMON NORMALS: no JVD Resp: COMMON NORMALS: normal respiratory effort and clear to auscultation bilaterally AUSCULTATION: clear to auscultation bilaterally Cardio: COMMON NORMALS: no JVD, regular rhythm, S1 normal heart sound present, S2 normal heart sound present and No murmurs present (Cardio) RHYTHM: regular rhythm HEART SOUNDS: S1 normal heart sound present and S2 normal heart sound present GI: COMMON NORMALS: Normal to inspection, nondistended, normoactive bowel sounds present, Soft to palpation and non-tender PALPATION: Yes Soft to palpation Extremity: COMMON NORMALS: no joint enlargement GENERAL: Yes edema (BLLE) Neuro: COMMON NORMALS: patient oriented x3 and moves all extremities SENSORIUM/ORIENTATION: Yes alert Skin: NARRATIVE SKIN EXAM: Deflated blister/bullae on lower extremities. OTHER: Edema, stasis dermatitis bilateral lower extremities. Data 10/04/22 06:51 10/04/22 18:41 A&P Assessment and plan (1) Problem with dialysis access: Unable to have dialysis today due to inability to cannulate left arm fistula. Nephrology recommendation for transfer for fistulogram. Preference for [facility] as this is where his last for was created. Attempted to initiate transfer, however, not accepted there as per their policy he would have to be on isolation until tomorrow with his positive test on 09/24,and no isolation bed available today. Discussed with [facility], no bed today, but excepted for tomorrow. We will try again with [facility] tomorrow to check if bed available and can be accepted as per expressed preference of his spouse, otherwise proceed to emergency. Discussed again with nephrology, recheck chemistry tonight. Consideration of binder for hyperkalemia. (2) End stage renal disease on dialysis: Nephrology following for dialysis; usual schedule is Tuesdays, and Saturdays, on a MWF schedule here Follow-up BMP requested for tonight and tomorrow. (3) Sepsis: Resolving Improving leukocytosis. No tachycardia, no fever. (4) Acute respiratory failure with hypoxia and hypercapnia: Resolved. On room air. Saturation in 90s. (5) Pneumonia due to COVID-19 virus: Denies shortness of breath or cough. Mild diarrhea. (6) Altered mental status: Resolved. Qualifiers: Altered mental status type: somnolence Qualified Code(s): R40.0 - So mnolence (7) Hypoglycemia associated with type 2 diabetes mellitus: Blood sugar 39 at presentation has been better since; we will have to watch as comes off of dexamethasone treatment for COVID. Today is day 3 of 6mg daily. (8) Bradycardia: Discussed with him and his , nursing staff. Held midodrine given bradycardia reported down to 40s. In a patient with known atrial fibrillation with slow ventricular response; pacemaker has been recommended in the past though declined (9) Chronic anticoagulation: On Eliquis (10) Hepatic encephalopathy: Ammonia 73 at admission, normalized (11) Leg swelling: Bilateral lower leg edema, with fluid-filled blisters/bullae on each leg now deflated. Keeps legs down a lot as a contributing factor. HD once able to. Monitor for any changes. On Augmentin. (12) COPD (chronic obstructive pulmonary disease): Improved. Cut down on dexamethasone and continue breathing treatments. Exacerbated secondary to #3 (13) Obstructive sleep apnea: On AVAPS with sleep (14) Calciphylaxis: (15) HTN (hypertension): History with variable blood pressures this hospital stay (16) Goals of care, counseling/discussion: To be allowed natural but treating otherwise Attestations Medical Necessity Statement*: Continue admission for assessment and of malfunction of hemodialysis access, needing transfer for fistulogram as unable to complete hemodialysis, having missed hemodialysis sessions last week, recovering from COVID pneumonia and COPD exacerbation. Diagnoses Problem with dialysis access [id number] End stage renal disease on dialysis N18.6; Z99.2 Sepsis A41.9 Acute respiratory failure with hypoxia and hypercapnia J96.01; J96.02 Pneumonia due to COVID-19 virus U07.1; J12.82 Altered mental status R40.0 Altered mental status type: somnolence Hypoglycemia associated with type 2 diabetes mellitus E11.649 Bradycardia R00.1 Chronic anticoagulation Z79.01 Hepatic encephalopathy K76.82 Leg swelling M79.89 COPD (chronic obstructive pulmonary disease) J44.9 Obstructive sleep apnea G47.33 Calciphylaxis E83.59 HTN (hypertension) I10 Goals of care, counseling/discussion Z71.89
[2022-10-04 19:33] LABS: Anion Gap 24.2 (5-19); Potassium 5.2 mmol/L (3.5-5.1)
[2022-10-04 19:36] LABS: Blood Urea Nitrogen 111 mg/dL (8-23)
--- NOTE | 2022-10-04 20:37 | PC.NURSE ---
[facility]
[2022-10-04] MEDS: insulin glargine 100 units/1 mL 20 UNIT SUBCUT (20:41)
[2022-10-04 20:50] LABS: Glucose Point of Care 361 mg/dL (70-110)
[2022-10-05] VITALS (9 sets, daily range): BP systolic 122–136; BP diastolic 50–61; PULSE 57–97; RESP 16–24; TEMP 36.3–37.1; O2SAT 92–98
[2022-10-05 05:41] LABS: Anion Gap 27.2 (5-19); Calcium 8.9 mg/dL (8.5-10.5); Carbon Dioxide 23 mmol/L (22-29); Chloride 92 mmol/L (98-107); Glomerular Filtration Rate 4.5 mL/min (90-130); Glucose 296 mg/dL (65-115); Potassium 5.2 mmol/L (3.5-5.1); Sodium 137 mmol/L (136-145)
[2022-10-05 05:51] LABS: Osmolality Calculated 334 mOsm/kg (285-295)
[2022-10-05 05:54] LABS: Blood Urea Nitrogen 121 mg/dL (8-23)
[2022-10-05] MEDS: budesonide 0.5 mg/2 mL Neb INHALATION (07:25)
[2022-10-05] MEDS: ipratropium-albuterol 3 mL Neb INHALATION (07:25)
[2022-10-05 09:11] LABS: Glucose Point of Care 268 mg/dL (70-110)
[2022-10-05] MEDS: cholecalciferol (vitamin D3) 1,000 unit Tablet 1000 UNIT PO (09:55)
[2022-10-05] MEDS: sertraline 50 mg Tablet PO (09:55)
[2022-10-05] MEDS: benzonatate 100 mg Capsule 200 MG PO (09:55)
[2022-10-05] MEDS: sevelamer 800 mg Tablet 1600 MG PO (09:55)
[2022-10-05] MEDS: dexamethasone 4 mg Tablet 3 MG PO (09:56)
[2022-10-05] MEDS: gabapentin 300 mg Capsule PO (09:56)
[2022-10-05] MEDS: pantoprazole DR 40 mg Tablet PO (09:56)
[2022-10-05] MEDS: insulin lispro 100 unit/1 mL SUBCUT (09:59)
[2022-10-05] MEDS: amoxicillin-clav 500-125 mg Tablet 1 TAB PO (09:59)
[2022-10-05] MEDS: acetaminophen 325 mg Tablet 650 MG PO (10:00)
[2022-10-05] MEDS: baclofen 10 mg Tablet 5 MG PO (10:00)
[2022-10-05] MEDS: apixaban 5 mg Tablet 2.5 MG PO (10:00)
--- NOTE | 2022-10-05 10:25 | PM.PN ---
Subjective Subjective: Denies any complaints Medications: Reviewed: Yes Vitals/I&O/Wt Last Vital Signs Temp 97.4 F L 10/05/22 08:33 Pulse 97 10/05/22 08:33 Resp 18 10/05/22 08:33 BP 134/61 10/05/22 08:33 Pulse Ox 93 10/05/22 08:33 O2 Del Method 10/05/22 08:33 O2 Flow Rate 35 10/04/22 20:00 FiO2 30 10/04/22 07:38 10/04/22 10/05/22 10/05/22 22:59 06:59 14:59 Intake Total 120 / 1445 60 / 1505 240 / 240 Balance 120 / 1445 60 / 1505 240 / 240 Physical Exam Narrative: No acute distress + edema Data 10/04/22 06:51 10/05/22 04:40 A&P Assessment and plan (1) End stage renal disease on dialysis: Plan 1. End-stage renal disease: On TTS schedule as outpatient, AVf nonfunctional currently, awaiting transfer to higher level of care, patient needs fistulogram 2. Acute on chronic respiratory failure: Has primary respiratory acidosis, management per primary team 3. Borderline low blood pressures: Continue midodrine 4. Chronic metabolic alkalosis: Likely compensation for chronic respiratory acidosis 5. Anemia: Mild, monitor 6. Patient with baseline poor quality of life currently DNR/DNI, no pressors but wishes to continue dialysis for now. 7. Hyperkalemia: Unable to do HD due to nonfunctioning AVF, awaiting transport, low potassium diet Patient evaluated using audiovisual cart. Time spent 35 minutes Attestations Medical Necessity Statement*: per medicine team Coding Level of Care Code Acute Code for Chg Fwd Diagnoses End stage renal disease on dialysis N18.6; Z99.2
--- NOTE | 2022-10-05 10:57 | PM.TDS ---
Transfer Summary Providers Date of Admission: 09/27/22 23:28 Date of Discharge/Transfer: 10/05/22 Attending Provider at Admission: Zeynep Martinez MD Attending Provider at Transfer: Moe Bone Primary Care Provider: Allen Ackerman DO Transfer Plans: Anticipated date of transfer: 10/05/22. Diagnoses at Discharge Discharge Diagnosis (1) End stage renal disease on dialysis: Status: Chronic Reason for Visit Reason for Visit DECREASED LOC/ COVID + Hospital Course Hospital Course Mr. Rivera was admitted to medical bed. Initially he was being managed as comfort care given persistent hypoglycemia, respiratory failure, hepatic encephalopathy and [facility] at the time of admission along with poor baseline quality of life. On presentation with COPD exacerbation. The following day after further consideration and discussion, decision was made to treat medically with antibiotics and resumption of his usual dialysis along with respiratory medications and steroids. Was diagnosed as having sepsis at the time of admission given leukocytosis, hypoglycemia and altered mental status with known viral infection with possible bacterial infection. Elevated ammonemia as well. He was not significantly hypotensive though blood pressures would vary. It was noted that he was bradycardic but he has longstanding atrial fibrillation with slow ventricular response for which a pacemaker had previously been recommended but declined. He was started empirically on vancomycin and Zosyn. Procalcitonin was around 11 suggesting possible bacterial component to pneumonia. Cultures came back no growth and vancomycin was stopped. He was continued on Zosyn here with plan to transition to oral antibiotic with plan for completion of a 10-day course. He received some hydrocortisone to help with both hypoglycemia and his respiratory status. This was ultimately switched to dexamethasone. He completed a course of remdesivir. His blood sugars did improve to the point that he was restarted on long and short acting insulin therapy. Dosages had to be adjusted throughout the hospital with steroid treatment. Once dexamethasone is stopped, his blood sugars will have to be watched very closely for recurrent hypoglycemia. Nephrology was consulted for dialysis. Patient's normal schedule is Tuesdays, and Saturdays. Off of his schedule here given acute issues. He is not requiring oxygen as he needed and primarily he is using AVAPS/BiPAP with sleep for sleep apnea. His mental status initially waxing and waning which family has indicated is near his baseline, but has improved. He did have some serous bulla and weeping of his lower extremities with edema and related to the fact that his legs are usually down. During hospitalization in evenings he did demonstrate some ing symptoms but this has improved. He had difficulty sleeping and discomfort. Encephalopathy resolved. Home medications were addressed and Zoloft was added. Long-term prognosis is poor and with his current quality of life, patient along with family should continue to address his desired goals of care on an ongoing basis. He has weaned off oxygen support since 10/01 remains on room air. He denies any shortness of breath, no chest pain, cough. Now having some diarrhea with lactulose, although due to hospitalization C. difficile will be requested. Requesting to decrease lactulose targeting 2-3 soft bowel movements. Heart rates usually run on the low side in the 50s, but did come down to 40s overnight/-10/04, so midodrine has been taken off scheduled dosing. He does use it as needed with dialysis for hypotension. Hemodialysis was attempted on Tuesday, but left arm fistula could not be accessed, recommendation for transfer for fistulogram and hopefully reopening of left arm access so that he may resume dialysis as he has been hyperkalemic, 5.2, BUN 121, creatinine 11.3, Phos 9.4, magnesium 2.7 and as mentioned with weeping lower extremity edema. His left arm access was created at [facility] and he is currently accepted there for additional evaluation and care this morning. Physical Exam Narrative: Sitting up in chair. Const: COMMON NORMALS: patient oriented x3 and alert GENERAL APPEARANCE: cooperative NUTRITIONAL APPEARANCE: obese ORIENTATION/CONSCIOUSNESS: Yes awake OTHER: Pleasant, conversant. HENMT: COMMON NORMALS: oropharynx normal Neck/C-Spine: COMMON NORMALS: no JVD Resp: COMMON NORMALS: normal respiratory effort and clear to auscultation bilaterally AUSCULTATION: clear to auscultation bilaterally Cardio: COMMON NORMALS: no JVD, regular rhythm, S1 normal heart sound present, S2 normal heart sound present and No murmurs present (Cardio) RHYTHM: regular rhythm HEART SOUNDS: S1 normal heart sound present and S2 normal heart sound present GI: COMMON NORMALS: Normal to inspection, nondistended, normoactive bowel sounds present, Soft to palpation and non-tender PALPATION: Yes Soft to palpation Extremity: COMMON NORMALS: no joint enlargement and no pedal edema GENERAL: Yes edema (BLLE) Neuro: COMMON NORMALS: patient oriented x3 and moves all extremities SENSORIUM/ORIENTATION: Yes alert Skin: COMMON NORMALS: no rashes or lesions noted NARRATIVE SKIN EXAM: Bilateral LE edema, fluid-filled blister/bullae. GENERAL SKIN EXAM: no rashes or lesions noted OTHER: Edema, stasis dermatitis bilateral lower extremities. TS Data Studies Completed and Pending Pending at discharge Category Date Time Status Arterial Blood Gas W/O Coox Stat Lab 09/27/22 23:23 Results Bacterial Antigen Stat Lab 09/28/22 10:00 Ordered Basic Metabolic Panel AM LABS Lab 10/06/22 04:00 Ordered Basic Metabolic Panel AM LABS Lab 10/07/22 04:00 Ordered C DIFF [Clostridioides Difficile PCR] Routine Lab 10/05/22 09:25 Uncollected Legionella Antigen STAT Stat Lab 09/28/22 10:00 Ordered Urinalysis Routine Lab 09/28/22 09:54 Uncollected Labs from last 24 hours 10/05/22 10/05/22 10/04/22 06:19 04:40 20:35 Sodium 137 Potassium 5.2 H Chloride 92 L Carbon Dioxide 23 Anion Gap 27.2 H BUN 121 H* Creatinine 11.3 H* GFR Calculation 4.5 L Glucose 296 H POC Glucose 268 H 361 H Calculated Osmolality 334 H Calcium 8.9 10/04/22 10/04/22 10/04/22 18:41 16:34 12:31 Sodium 129 L Potassium 5.2 H Chloride 87 L Carbon Dioxide 23 Anion Gap 24.2 H BUN 111 H* Creatinine 9.6 H* GFR Calculation 5.5 L Glucose 359 H POC Glucose 277 H 212 H Calculated Osmolality 318 H Calcium 8.8 10/04/22 11:41 Sodium Potassium Chloride Carbon Dioxide Anion Gap BUN Creatinine GFR Calculation Glucose POC Glucose 232 H Calculated Osmolality Calcium Completed Studies During Hospitalization Category Date Time Status CT chest abdomen pelvis [[place] [id number] Cat Scan 09/27/22 21:06 Completed ] Stat CT head wo con* [id number] Stat Cat Scan 09/27/22 21:06 Completed XR chest 1V portable [id number] Stat Exams 09/27/22 17:29 Completed Laboratory Last Values WBC 13.5 10^3/uL (4.0-10.0) H 10/04/22 06:51 RBC 3.51 10^6/uL (4.1-5.3) L 10/04/22 06:51 Hgb 10.5 g/dL (11.7-16.6) L 10/04/22 06:51 Hct 34.3 % (42.0-52.0) L 10/04/22 06:51 MCV 97.7 fl (80-94) H 10/04/22 06:51 MCH 29.9 pg (28.0-34.0) 10/04/22 06:51 MCHC 30.6 g/dL (30.0-36.0) 10/04/22 06:51 RDW 15.0 % (12.1-15.1) 10/04/22 06:51 Plt Count 213 10^3/cmm (130-400) 10/04/22 06:51 MPV 10.3 fL (7.4-10.4) 10/04/22 06:51 Neut % (Auto) 87.8 % 10/04/22 06:51 Lymph % (Auto) 4.6 % 10/04/22 06:51 [place] % (Auto) 5.8 % 10/04/22 06:51 Eos % (Auto) 0.1 % 10/04/22 06:51 Baso % (Auto) 0.1 % 10/04/22 06:51 Neut # (Auto) 11.87 10^3/uL (1.8-7.7) H 10/04/22 06:51 Lymph # (Auto) 0.6 10^3/uL (0.8-4.8) L 10/04/22 06:51 [place] # (Auto) 0.8 10^3/uL (0.2-0.9) 10/04/22 06:51 Eos # (Auto) 0.0 10^3/uL (0.0-0.8) 10/04/22 06:51 Baso # (Auto) 0.0 10^3/uL (0.0-0.1) 10/04/22 06:51 Nucleated RBC % (auto) 0.1 % 10/04/22 06:51 Nucleated RBCs # 0.0 /100WBC 10/04/22 06:51 D-Dimer 1.23 ug/mIFEU (0-0.59) H 09/27/22 19:18 Specimen Type Arterial 10/03/22 23:02 Sample Site Radial, left 10/03/22 23:02 ABG pH 7.28 (7.35-7.45) L 10/03/22 23:02 ABG pCO2 50.9 mmHg (35-45) H 10/03/22 23:02 ABG pO2 135.0 mmHg (80.0-100.0) H 10/03/22 23:02 ABG HCO3 24.0 mmol/L (22-26) 10/03/22 23:02 ABG O2 Saturation 99.3 10/03/22 23:02 ABG Base Excess -2.9 mmol/L (-2.0-2.0) L 10/03/22 23:02 Mickey Test Pos 10/03/22 23:02 VBG pH 7.22 (7.32-7.42) L 09/27/22 18:15 VBG pCO2 89.2 mmHg (41-51) H* 09/27/22 18:15 VBG pO2 29.7 mmHg (25-40) 09/27/22 18:15 VBG HCO3 36.7 mmol/L (24-28) H 09/27/22 18:15 VBG Base Excess 6.2 mmol/L (-3.0-3.0) H 09/27/22 18:15 VBG Hematocrit 36.9 % (42-52) L 09/27/22 18:15 A-a O2 Gradient 2.2 mmHg (5-10) L 10/03/22 23:02 Hematocrit 32.2 % (42-52) L 10/03/22 23:02 Hgb O2 Saturation 97.6 % (95-100) 10/03/22 23:02 Carboxyhemoglobin 1.3 %THgb (0.4-20.1) 10/03/22 23:02 Methemoglobin 0.4 % (0.4-1.5) 10/03/22 23:02 Total Hemoglobin 10.5 g/dL (14-18) L 10/03/22 23:02 Sodium 135.0 mmol/L (131-143) 10/03/22 23:02 Potassium 5.3 mmol/L (3.5-5.0) H 10/03/22 23:02 Glucose 285.0 mg/dL (70-115) H 10/03/22 23:02 Ionized Calcium 1.2 mmol/L (1.1-1.4) 10/03/22 23:02 O2 Delivery Device Bipap 10/03/22 23:02 O2 Liters/Min 2.0 % 09/28/22 10:15 FiO2 30.0 % 10/03/22 23:02 PEEP 10.0 cmH20 10/03/22 23:02 Splicer Machine Operator ID [email or web address] 10/03/22 23:02 Sodium 137 mmol/L (136-145) 10/05/22 04:40 Potassium 5.2 mmol/L (3.5-5.1) H 10/05/22 04:40 Chloride 92 mmol/L (98-107) L 10/05/22 04:40 Carbon Dioxide 23 mmol/L (22-29) 10/05/22 04:40 Anion Gap 27.2 (5-19) H 10/05/22 04:40 BUN 121 mg/dL (8-23) H* 10/05/22 04:40 Creatinine 11.3 mg/dL (0.7-1.2) H* 10/05/22 04:40 GFR Calculation 4.5 mL/min (90-130) L 10/05/22 04:40 Glucose 296 mg/dL (65-115) H 10/05/22 04:40 POC Glucose 268 mg/dL (70-110) H 10/05/22 06:19 Estimat Average Glucose 157 09/28/22 10:35 Hemoglobin A1c 7.1 % (4.0-6.0) H 09/28/22 10:35 Calculated Osmolality 334 mOsm/kg (285-295) H 10/05/22 04:40 Lactic Acid 0.7 mmol/L (0.5-2.2) 09/28/22 10:35 Uric Acid 5.3 mg/dL (3.4-7.0) 09/27/22 19:18 Calcium 8.9 mg/dL (8.5-10.5) 10/05/22 04:40 Phosphorus 9.4 mg/dL (2.5-4.5) H* 10/04/22 06:51 Magnesium 2.7 mg/dL (1.7-2.3) H 10/04/22 06:51 Iron 26 ug/dL (59-158) L 09/28/22 10:35 TIBC 138 mcg/dl 09/28/22 10:35 % Saturation 18.8 % (20-50) L 09/28/22 10:35 Unsat Iron Binding 112 ug/dL (112-347) 09/28/22 10:35 Total Bilirubin 0.3 mg/dL (0.15-1.2) 10/01/22 04:32 AST 17 U/L (0-40) 10/01/22 04:32 ALT 17 U/L (0-41) 10/01/22 04:32 Alkaline Phosphatase 101 U/L (40-130) 10/01/22 04:32 Ammonia 39 umol/L (16-60) 10/01/22 04:32 Total Protein 7.3 g/dL (6.6-8.7) 10/01/22 04:32 Albumin 3.5 g/dL (3.5-5.2) 10/01/22 04:32 Globulin 3.8 g/dL (1.3-4.6) 10/01/22 04:32 Triglycerides 100 mg/dL (0-150) 09/29/22 04:56 Cholesterol 78 mg/dL (0-200) 09/29/22 04:56 LDL Cholesterol, Calc 25 mg/dL (50-129) L 09/29/22 04:56 HDL Cholesterol 33 mg/dL (60-100) L 09/29/22 04:56 LDL/HDL Ratio 0.76 RATIO (0.00-3.22) 09/29/22 04:56 Cholesterol/HDL Ratio 2.36 mg/dL (1.0-5.00) 09/29/22 04:56 Vitamin B12 614 pg/mL (232-1245) 09/28/22 10:35 Folate > 20.0 ng/mL (4.5-32.2) 09/28/22 10:35 Procalcitonin 5.63 ng/mL (0-0.5) H 10/02/22 04:42 TSH 0.60 uIU/mL (0.27-4.20) 09/28/22 10:35 Random Cortisol 55.50 ug/dL (2.47-19.5) H 09/28/22 10:35 Hepatitis A IgM Ab Non-reactive (Nonreactive) 09/30/22 05:19 Hep Bs Antigen Non-reactive (Nonreactive) 09/30/22 05:19 Hep B Core IgM Ab Non-reactive (Nonreactive) 09/30/22 05:19 Hepatitis C Antibody Non-reactive (Nonreactive) 09/30/22 05:19 Radiology Impressions Chest X-Ray 09/27/22 17:29 IMPRESSION: 1. Possible mild ground-glass opacities in the left lung base. Pneumonia is not excluded. Chest/Abdomen/Pelvis CT 09/27/22 21:06 IMPRESSION: 1. Patchy bilateral largely lower lobe airspace infiltrates. 2. Coronary artery atherosclerotic calcifications. 3. Cardiomegaly. 4. Scattered prominent mediastinal lymph nodes measuring up to 21 mm, nonspecific. IMPRESSION: 1. Negative for focal acute inflammatory process in the abdomen or pelvis. 2. Cirrhotic liver suspected. 3. Several hepatic cysts. 4. Spleen enlarged at 13 cm. 5. Cholecystectomy. 6. Bilateral chronic appearing renal atrophy. Head CT 09/27/22 21:06 IMPRESSION: 1. No acute intracranial abnormality. 2. Moderate chronic microangiopathy. Recent Clincial Data Last Vital Signs Temp 97.4 F L 10/05/22 08:33 Pulse 97 10/05/22 08:33 Resp 18 10/05/22 08:33 BP 134/61 10/05/22 08:33 Pulse Ox 93 10/05/22 08:33 O2 Del Method 10/05/22 08:33 O2 Flow Rate 35 10/04/22 20:00 FiO2 30 10/04/22 07:38 Vital Signs Temp Pulse Resp BP Pulse Ox O2 Del Method 10/05/22 08:33 97.4 F L 97 18 134/61 93 Room Air 10/05/22 07:26 57 L 16 97 Room Air 10/05/22 04:00 98.8 F 58 L 18 130/60 10/05/22 04:00 98.8 F 58 L 18 130/60 95 10/05/22 02:06 59 L 17 92 Room Air 10/05/22 00:00 98.6 F 57 L 24 H 136/50 10/05/22 00:38 98.6 F 57 L 24 H 136/50 96 Intake & Output/Weight 10/03/22 10/04/22 10/05/22 10/06/22 06:59 06:59 06:59 06:59 Intake Total 814 / 814 890 / 890 1505 / 1505 240 / 240 Balance 814 / 814 890 / 890 1505 / 1505 240 / 240 Weight 127.006 kg Vitals Last Vital Signs Temp 97.4 F L 10/05/22 08:33 Pulse 97 10/05/22 08:33 Resp 18 10/05/22 08:33 BP 134/61 10/05/22 08:33 Pulse Ox 93 10/05/22 08:33 O2 Del Method 10/05/22 08:33 O2 Flow Rate 35 10/04/22 20:00 FiO2 30 10/04/22 07:38 TS Medications Medications Acetaminophen (Acetaminophen 325 Mg Tablet) 650 mg PO Q6H PRN PRN Reason: Mild/Mod Pain Or Temp >/= 101 Last Admin: 10/05/22 10:00 Dose: 650 mg Albuterol/Ipratropium (Ipratropium-Albuterol 3 Ml Neb) 3 ml INHALATION Q6H.RESP ARABELLA Last Admin: 10/05/22 07:25 Dose: 3 ml Amoxicillin/Clavulanate Potassium (Amoxicillin-Clav 500-125 Mg Tablet) 1 tab PO TID ARABELLA; Protocol Last Admin: 10/05/22 09:59 Dose: 1 tab Apixaban (Apixaban 5 Mg Tablet) 2.5 mg PO BID@0900,2100 ARABELLA Last Admin: 10/05/22 10:00 Dose: 2.5 mg Baclofen (Baclofen 10 Mg Tablet) 5 mg PO DAILY PRN PRN Reason: Leg cramps, muscle spasm Last Admin: 10/05/22 10:00 Dose: 5 mg Benzonatate (Benzonatate 100 Mg Capsule) 200 mg PO TID ARABELLA Last Admin: 10/05/22 09:55 Dose: 200 mg Bisacodyl (Bisacodyl 5 Mg Tablet) 10 mg PO DAILY PRN; Protocol PRN Reason: Constipation (see protocol) Budesonide (Budesonide 0.5 Mg/2 Ml Neb) 0.5 mg INHALATION BID.RESPIRATORY ARABELLA Last Admin: 04/11/23 07:25 Dose: 0.5 mg Dexamethasone (Dexamethasone 4 Mg Tablet) 3 mg PO DAILY [facility] Last Admin: 10/05/22 09:56 Dose: 3 mg Dextrose (Dextrose 50% Syringe 50 Ml) 25 ml IVP ONCE PRN; Protocol PRN Reason: hypoglycemia protocol Dextrose (Dextrose 50% Syringe 50 Ml) 50 ml IVP PRN PRN; Protocol PRN Reason: hypoglycemia protocol Gabapentin (Gabapentin 300 Mg Capsule) 300 mg PO DAILY [facility] Last Admin: 10/05/22 09:56 Dose: 300 mg Guaifenesin (Guaifenesin 100 Mg/5 Ml Udc 10 Ml) 200 mg PO Q6H PRN PRN Reason: COUGH AND CONGESTION Last Admin: 10/02/22 06:05 Dose: 200 mg Haloperidol Lactate (Haloperidol Inj 5 Mg/Ml Inj 1 Ml) 0.5 mg IM Q12H PRN PRN Reason: AGITATION Heparin Sodium (Porcine) (Heparin, Porcine 1,000 Unit/Ml Inj 10 Ml) 0 unit HE PRN PRN PRN Reason: FOR USE IN HEMODIALYSIS Hydroxyzine Pamoate (Hydroxyzine 25 Mg Capsule) 50 mg PO QID PRN PRN Reason: ANXIETY Dextrose (D5w) 500 mls @ 100 mls/hr IV ONCE PRN; Protocol PRN Reason: Adult Acute Hypoglycemia Prot Sodium Chloride (Sodium Chloride 0.9%) 1,000 mls @ 0 mls/hr IV .Q0M PRN PRN Reason: hypotension or symptomatic Sodium Chloride (Sodium Chloride 0.9%) 1,000 mls @ 0 mls/hr IV .Q0M PRN PRN Reason: hypotension or symptomatic Albumin Human (Albumin) 12.5 gm in 50 mls @ 60 mls/hr IV PRN PRN PRN Reason: Hypotension and/or symptomatic Sodium Chloride (Sodium Chloride 0.9%) 1,000 mls @ 0 mls/hr IV .Q0M PRN PRN Reason: hypotension or symptomatic Albumin Human (Albumin) 12.5 gm in 50 mls @ 60 mls/hr IV PRN PRN PRN Reason: Hypotension and/or symptomatic Insulin Glargine (Insulin Glargine 100 Units/1 Ml) 20 unit SUBCUT BEDTIME ARABELLA Last Admin: 10/04/22 20:41 Dose: 20 unit Insulin Human Lispro (Insulin Lispro 100 Unit/1 Ml) 0 unit SUBCUT BEDTIME ARABELLA; Protocol Last Admin: 10/04/22 20:40 Dose: 7 unit Insulin Human Lispro (Insulin Lispro 100 Unit/1 Ml) 0 unit SUBCUT TIDWM [facility]; Protocol Last Admin: 10/05/22 09:59 Dose: 10 unit Lactulose (Lactulose Oral Liq 20 Gm/30 Ml Udc) 10 gm PO DAILY PRN; Protocol PRN Reason: Constipation (see protocol) Lactulose (Lactulose Oral Liq 20 Gm/30 Ml Udc) 20 gm PO Q12H [facility] Last Admin: 10/05/22 09:56 Dose: Not Given Magnesium Hydroxide (Magnesium Hydroxide 30 Ml Udc) 30 ml PO DAILY PRN; Protocol PRN Reason: Constipation (see protocol) Midodrine (Midodrine 5 Mg Tablet) 5 mg PO TID PRN PRN Reason: SBP Less than 110 mmhg or with dialysis Non-Formulary Medication (Sodium Zirconium Cyclosilicate [Lokelma]) see rx instructions mg PO [id number] [facility] Last Admin: 10/04/22 14:45 Dose: 10 mg Pantoprazole Sodium (Pantoprazole Dr 40 Mg Tablet) 40 mg PO DAILY [facility] Last Admin: 10/05/22 09:56 Dose: 40 mg Senna/Docusate Sodium (Sennosides-Docusate Tablet) 1 tab PO BID [facility] Last Admin: 10/05/22 09:56 Dose: Not Given Sertraline HCl (Sertraline 50 Mg Tablet) 50 mg PO DAILY [facility] Last Admin: 10/05/22 09:55 Dose: 50 mg Sevelamer Carbonate (Sevelamer 800 Mg Tablet) 1,600 mg PO TID [facility] Last Admin: 10/05/22 09:55 Dose: 1,600 mg Vitamin D (Cholecalciferol (Vitamin D3) 1,000 Unit Tablet) 1,000 unit PO DAILY [facility] Last Admin: 10/05/22 09:55 Dose: 1,000 unit Discontinued Medications Acetaminophen (Acetaminophen 325 Mg Tablet) 650 mg PO Q4H PRN PRN Reason: Temperature greater than 100.5 Acetaminophen (Acetaminophen 650 Mg Supp) 650 mg FL Q4H PRN PRN Reason: Temperature greater than 100.5 Hydrocodone Bitart/Acetaminophen (Hydrocodone-Acetaminophen 5-325 Mg Tablet) 1 tab PO Q6H PRN PRN Reason: MODERATE PAIN Albuterol Sulfate (Albuterol 2.5 Mg/3 Ml Neb) 2.5 mg INHALATION Q4H.RESPIRATORY PRN PRN Reason: SHORTNESS OF BREATH Albuterol/Ipratropium (Ipratropium-Albuterol 3 Ml Neb) 3 ml INHALATION Q6H PRN PRN Reason: SHORTNESS OF BREATH Albuterol/Ipratropium (Ipratropium-Albuterol 3 Ml Neb) 3 ml INHALATION Q6H [facility] Last Admin: 09/28/22 10:12 Dose: Not Given Apixaban (Apixaban 5 Mg Tablet) 5 mg PO BID [facility] Apixaban (Apixaban 5 Mg Tablet) 5 mg PO BID@0900,2100 [facility] Last Admin: 10/01/22 09:30 Dose: 5 mg Artificial Tears (Artificial Tears Op Soln 15 Ml Btl) 2 drop EYE-BOTH Q2H PRN PRN Reason: DRY EYE(S) Azithromycin (Azithromycin 250 Mg Tablet) 500 mg PO DAILY [facility]; Protocol Benzonatate (Benzonatate 100 Mg Capsule) 200 mg PO Q6H PRN PRN Reason: COUGH Benzonatate (Benzonatate 100 Mg Capsule) 200 mg PO TID PRN PRN Reason: COUGH Last Admin: 09/30/22 04:27 Dose: 200 mg Camphor/Menthol/Phenol (Blistex Lip Oint 7 Gm Tube) 1 applic TOPICAL Q2H PRN PRN Reason: DRY LIPS Dexamethasone (Dexamethasone 10 Mg/Ml Inj) 6 mg IVP Q24H [facility] Last Admin: 09/28/22 08:50 Dose: Not Given Dexamethasone (Dexamethasone 4 Mg Tablet) 6 mg PO DAILY [facility] Last Admin: 10/04/22 09:14 Dose: 6 mg Dextrose (Dextrose 50% Syringe 50 Ml) 50 ml IVP ONCE ONE Stop: 09/28/22 09:50 Last Admin: 09/28/22 10:26 Dose: 50 ml Epinephrine (Racepinephrine 0.5 Ml Neb) 0.5 ml INHALATION Q4H.RESPIRATORY PRN PRN Reason: Stridor Glucagon (Glucagon 1 Mg/Ml Inj 1 Ml) 1 mg IM ONCE ONE Stop: 09/27/22 20:14 Last Admin: 09/27/22 23:50 Dose: Not Given Glucagon (Glucagon 1 Mg/Ml Inj 1 Ml) 1 mg IM ONCE PRN; Protocol PRN Reason: Adult Acute Hypoglycemia Prot. Last Admin: 09/28/22 12:36 Dose: 1 mg Glucose (Glucose 40% Gel 15 Gm Udc) 15 gm PO NOW ONE Stop: 09/27/22 19:59 Last Admin: 09/27/22 20:40 Dose: 15 gm Glycopyrrolate (Glycopyrrolate 0.2 Mg/Ml Sdv 2 Ml) 0.2 mg IV Q4H PRN PRN Reason: Excessive Secretions, Rattling Haloperidol Lactate (Haloperidol Inj 5 Mg/Ml Inj 1 Ml) 2 mg IM NOW ONE Stop: 09/28/22 22:35 Last Admin: 09/28/22 23:06 Dose: 2 mg Haloperidol Lactate (Haloperidol Inj 5 Mg/Ml Inj 1 Ml) 1 mg IM Q6H PRN PRN Reason: AGITATION Haloperidol Lactate (Haloperidol Inj 5 Mg/Ml Inj 1 Ml) 5 mg IM Q12H PRN PRN Reason: AGITATION Heparin Sodium (Porcine) (Heparin 5,000 Unit/Ml Inj 1 Ml) 5,000 unit SUBCUT Q12H [facility] Last Admin: 09/28/22 11:13 Dose: Not Given Heparin Sodium (Porcine) (Heparin, Porcine 1,000 Unit/Ml Inj 10 Ml) 1,000 unit IV ONCE ONE Stop: 10/01/22 05:54 Last Admin: 10/01/22 19:13 Dose: Not Given Hydrocortisone Sodium Succinate (Hydrocortisone 100 Mg/2 Ml Sdv) 100 mg IVP ONCE ONE Stop: 09/27/22 23:50 Last Admin: 09/28/22 08:50 Dose: Not Given Hydrocortisone Sodium Succinate (Hydrocortisone 100 Mg/2 Ml Sdv) 100 mg IVP ONCE ONE Stop: 09/28/22 09:50 Last Admin: 09/28/22 10:27 Dose: 100 mg Hydrocortisone Sodium Succinate (Hydrocortisone 100 Mg/2 Ml Sdv) 50 mg IVP Q6H [facility] Last Admin: 09/29/22 09:03 Dose: 50 mg Hydrocortisone Sodium Succinate (Hydrocortisone 100 Mg/2 Ml Sdv) 50 mg IVP Q12H [facility] Last Admin: 09/29/22 20:38 Dose: 50 mg Hydrocortisone Sodium Succinate (Hydrocortisone 100 Mg/2 Ml Sdv) 50 mg IVP DAILY [facility] Last Admin: 09/30/22 11:17 Dose: 50 mg Dextrose 35.5 ml/ Sterile (Water 14.5 ml/ N/A) 50 mls @ 600 mls/hr IVP ONCE ONE Stop: 09/27/22 21:04 Last Infusion: 09/28/22 08:49 Dose: Infused Ceftriaxone Sodium 1,000 mg/ (Sodium Chloride) 50 mls @ 100 mls/hr IV DAILY [facility]; Protocol Dextrose (D10w) 1,000 mls @ 75 mls/hr IV .[id number] [facility] Stop: 09/28/22 08:00 Last Admin: 09/28/22 08:50 Dose: Not Given Dextrose 35.5 ml/ Sterile (Water 14.5 ml/ N/A) 50 mls @ 600 mls/hr IVP ONCE ONE Stop: 09/28/22 10:04 Last Admin: 09/28/22 17:54 Dose: Not Given Dextrose/Sodium Chloride (Dextrose 5%-Sod Chloride 0.9%) 1,000 mls @ 75 mls/hr IV .[id number] [facility] Last Infusion: 09/28/22 17:41 Dose: Infused Vancomycin HCl / Sodium (Chloride) 250 mls @ 0 mls/hr [id number] PROTOCOL ARABELLA; Protocol Piperacillin Sod/Tazobactam (Sod 3.375 gm/ Sodium Chloride) 50 mls @ 12.5 mls/hr IV Q12H [facility]; Protocol Last Admin: 10/03/22 18:43 Dose: Not Given Vancomycin/PEG/NADA/Lysine/Water (Vancocin) 1,500 mg in 300 mls @ 200 mls/hr IV Q72H [facility] Last Infusion: 09/28/22 12:14 Dose: Infused Albumin Human (Albumin) 12.5 gm in 50 mls @ 60 mls/hr IV PRN PRN PRN Reason: Hypotension and/or symptomatic Vancomycin HCl 1,000 mg/ (Sodium Chloride) 250 mls @ 250 mls/hr IV DIALYSIS [facility] Last Admin: 09/30/22 17:05 Dose: Not Given Insulin Glargine (Insulin Glargine 100 Units/1 Ml) 20 unit SUBCUT BEDTIME [facility] Last Admin: 09/30/22 22:20 Dose: 20 unit Insulin Glargine (Insulin Glargine 100 Units/1 Ml) 15 unit SUBCUT BEDTIME [facility] Last Admin: 10/02/22 21:11 Dose: 15 unit Insulin Glargine (Insulin Glargine 100 Units/1 Ml) 17 unit SUBCUT BEDTIME [facility]MER[facility] [facility] Last Admin: 10/03/22 22:12 Dose: 17 unit Insulin Human Lispro (Insulin Lispro 100 Unit/1 Ml) 0 unit SUBCUT WM&BEDTIME [facility]; Protocol Last Admin: 09/29/22 12:27 Dose: 24 unit Insulin Human Lispro (Insulin Lispro 100 Unit/1 Ml) 0 unit SUBCUT Q4H [facility]; Protocol Last Admin: 09/30/22 10:52 Dose: Not Given Insulin Human Lispro (Insulin Lispro 100 Unit/1 Ml) 0 unit SUBCUT WM&BEDTIME [facility]; Protocol Last Admin: 10/01/22 11:59 Dose: Not Given Lactulose (Lactulose Oral Liq 20 Gm/30 Ml Udc) 20 gm PO BID PRN PRN Reason: Constipation, use 3rd Lorazepam (Lorazepam 2 Mg/Ml Inj 1 Ml) 2 mg IVP NOW ONE Stop: 09/27/22 21:43 Last Admin: 09/27/22 21:48 Dose: 2 mg Lorazepam (Lorazepam 2 Mg/Ml Inj 1 Ml) 1 - 2 mg IVP Q8H PRN PRN Reason: Anxiety, Agitation or Restless Lorazepam (Lorazepam 2 Mg/Ml Inj 1 Ml) 2 mg IVP Q30M PRN PRN Reason: SEIZURES Magnesium Hydroxide (Magnesium Hydroxide 30 Ml Udc) 30 ml PO DAILY PRN PRN Reason: Constipation, use 2nd Midodrine (Midodrine 5 Mg Tablet) 10 mg PO TID [facility] Last Admin: 09/30/22 10:59 Dose: Not Given Morphine Sulfate (Morphine 4 Mg/Ml Sdv 1 Ml) 2 - 10 mg IVP Q15M PRN PRN Reason: Moderate To Severe Pain or SOB Morphine Sulfate (Morphine 10 Mg/0.5 Ml Oral Liq Ud) 2 - 10 mg SUBLINGUAL Q2H PRN PRN Reason: Moderate To Severe Pain or SOB Last Admin: 09/28/22 06:57 Dose: 2 mg Morphine Sulfate (Morphine 4 Mg/Ml Sdv 1 Ml) 2 mg IVP Q4H PRN PRN Reason: SEVERE PAIN Olanzapine (Olanzapine 10 Mg Vial) 10 mg IM ONCE ONE Stop: 09/28/22 20:27 Last Admin: 09/28/22 20:50 Dose: 10 mg Ondansetron HCl (Ondansetron 2 Mg/Ml Sdv 2 Ml) 4 mg IVP Q6H PRN PRN Reason: NAUSEA AND VOMITING Ondansetron HCl (Ondansetron 2 Mg/Ml Sdv 2 Ml) 4 mg IVP Q8H PRN PRN Reason: NAUSEA AND VOMITING Ondansetron HCl (Ondansetron 2 Mg/Ml Sdv 2 Ml) 4 mg IVP Q8H PRN PRN Reason: vomiting, or N/V if npo Pantoprazole Sodium (Pantoprazole 40 Mg Sdv) 40 mg IVP Q24H [facility] Last Admin: 10/03/22 10:13 Dose: 40 mg Polyethylene Glycol (Polyethylene Glycol 3350 Pkt 17 Gm) 17 gm PO DAILY PRN PRN Reason: Constipation, use 1st Saliva Substitute (Saliva Stimulant [place] 44 Ml Btl) 1 spray MUCOUS MEM Q2H PRN PRN Reason: DRY MOUTH Sevelamer Carbonate (Sevelamer 800 Mg Tablet) 1,600 mg PO TID ARABELLA Temazepam (Temazepam 15 Mg Capsule) 15 mg PO BEDTIME [facility] Last Admin: 10/03/22 20:32 Dose: Not Given Allergies COVID-19 (SARS-CoV-2) vaccine, conchita Allergy (Verified 12/05/21 17:21) ALGY-Anaphylaxis Home Medications atorvastatin 40 mg tablet 40 mg PO BEDTIME 06/30/19 [History Confirmed 09/27/22] diphenhydramine HCl 25 mg capsule (Benadryl) 50 mg PO Q4H PRN Itching 06/30/19 [History Confirmed 09/27/22] sevelamer carbonate 800 mg tablet (Renvela) 1,600 mg PO TID 06/30/19 [History Confirmed 09/27/22] pen needle, diabetic 31 gauge x 5/16 (TechLITE Pen Needle) #200 ea 06/06/20 [Rx Confirmed 09/27/22] blood sugar diagnostic (Blood Glucose Test strips) #300 ea 09/02/20 [Rx Confirmed 09/27/22] Cam Walker #1 ea 09/19/20 [Rx Confirmed 09/27/22] Diabetic shoes with 3 pairs of inserts #1 ea 10/06/20 [Rx Confirmed 09/27/22] pen needle, diabetic 31 gauge x 5/16 (TechLITE Pen Needle) #100 ea 06/11/21 [Rx Confirmed 09/27/22] baclofen 5 mg tablet 5 mg PO DAILY PRN Leg cramps, muscle spasm #30 tabs 08/06/21 [Rx Confirmed 09/27/22] flash glucose sensor (FreeStyle Christopher 2 Sensor kit) #1 ea 08/06/21 [Rx Confirmed 09/27/22] nebulizers #1 ea 08/06/21 [Rx Confirmed 09/27/22] gabapentin 300 mg capsule 300 mg PO DAILY 08/14/21 [History Confirmed 09/27/22] promethazine 25 mg tablet 25 mg PO Q6H PRN Nausea 08/14/21 [History Confirmed 09/27/22] comp.stocking,knee,long,medium #12 ea 08/25/21 [Rx Confirmed 09/27/22] acetaminophen 325 mg tablet (Tylenol) 650 mg PO Q6H PRN Pain 07/01/22 [History Confirmed 09/27/22] apixaban 5 mg tablet (Eliquis) 5 mg PO BID 07/01/22 [History Confirmed 09/27/22] bismuth subsalicylate 525 mg/15 mL oral suspension 525 mg PO Q24H PRN Diarrhea 07/01/22 [History Confirmed 09/27/22] calcium carbonate 1,000 mg tablet 1,000 mg PO BEDTIME 07/01/22 [History Confirmed 09/27/22] cholecalciferol (vitamin D3) 25 mcg (1,000 unit) capsule (Vitamin D3) 25 mcg PO DAILY 07/01/22 [History Confirmed 09/27/22] dextran 70-hypromellose 0.1 %-0.3 % eye drops 2 drp ophthalmic (eye) Q4H PRN Dry Eyes 07/01/22 [History Confirmed 09/27/22] fluticasone propionate 50 mcg/actuation nasal spray,suspension 1 spray intranasal BID 07/01/22 [History Confirmed 09/27/22] guaifenesin 100 mg/5 mL oral liquid 200 mg PO Q4H PRN Cough 07/01/22 [History Confirmed 09/27/22] insulin glargine 100 unit/mL (3 mL) subcutaneous pen (Lantus Solostar U-100 Insulin) 56 unit SUBCUT BID 07/01/22 [History Confirmed 09/27/22] loperamide-simethicone 2 mg-125 mg tablet 1 tab PO Q24H PRN Gastric Reflux 07/01/22 [History Confirmed 09/27/22] loratadine 10 mg tablet (Claritin) 10 mg PO DAILY 07/01/22 [History Confirmed 09/27/22] melatonin 3 mg tablet 3 mg PO BEDTIME 07/01/22 [History Confirmed 09/27/22] midodrine 5 mg tablet 5 mg PO BID 07/01/22 [History Confirmed 09/27/22] sodium zirconium cyclosilicate 10 gram oral powder packet (Lokelma) See Rx Instructions .Route .COMPLEX 07/01/22 [History Confirmed 09/27/22] temazepam 15 mg capsule 7.5 mg PO BEDTIME 07/01/22 [History Confirmed 09/27/22] albuterol sulfate 2.5 mg/3 mL (0.083 %) solution for nebulization 2.5 mg inhalation Q4H PRN shortness of breath or wheezing 09/27/22 [History Confirmed 09/27/22] hydrocodone 5 mg-acetaminophen 325 mg tablet 0.5 tab PO Q6H PRN Pain 09/27/22 [History Confirmed 09/27/22] hydrocodone 5 mg-acetaminophen 325 mg tablet 1 tab PO Q6H PRN Pain 09/27/22 [History Confirmed 09/27/22] insulin aspart U-100 100 unit/mL (3 mL) subcutaneous pen (Novolog FlexPen U-100 Insulin aspart) See Rx Instructions .Route .COMPLEX 09/27/22 [History Confirmed 09/27/22] nirmatrelvir 150 mg-ritonavir 100 mg tablets in a dose pack (EUA) (Paxlovid) 1 ea PO . DIRECTED 09/27/22 [History Confirmed 09/27/22] sucroferric oxyhydroxide 500 mg chewable tablet (Velphoro) 500 mg PO TID 09/27/22 [History Confirmed 09/27/22] vitamin B complex and vitamin C no.20-folic acid 1 mg capsule (Renal Caps) 1 cap PO DAILY 09/27/22 [History Confirmed 09/27/22] Discharge Plan Discharge Patient Disposition: Xfer SNF Condition: Stable Prescriptions: No Action (DME) FreeStyle Christopher 2 Sensor Kit See Rx Instructions .Route Qty: 1 0RF Rx Instructions: As directed. He is checking sugars 5x daily and having difficulty with obtaining blood. (DME) nebulizers Mis See Rx Instructions .Route Qty: 1 0RF Rx Instructions: As directed. Please include Nebulizer, tubing and mask. baclofen 5 mg tablet 5 mg PO DAILY PRN (Reason: Leg cramps, muscle spasm) Qty: 30 1RF (DME) Cam Walker See Rx Instructions .ROUTE .MEDSUPPLY Qty: 1 0RF Rx Instructions: As directed ([facility]) Diabetic shoes with 3 pairs of inserts See Rx Instructions .Route .MEDSUPPLY Qty: 1 0RF Rx Instructions: As directed by ALLAN&O ([facility]) comp.stocking,knee,long,medium Misc See Rx Instructions .Route Qty: 12 0RF Rx Instructions: As directed. Wear when up. May take off to shower or lie in bed. ([facility]) pen needle, diabetic [TechLITE Pen Needle] 31 gauge x 5/16 needle See Rx Instructions .ROUTE .MEDSUPPLY Qty: 200 11RF Rx Instructions: As directed ([facility]) Blood Glucose Test Strip See Rx Instructions .ROUTE .MEDSUPPLY Qty: 300 3RF Rx Instructions: TEST THREE TIMES DAILY ([facility]) pen needle, diabetic [TechLITE Pen Needle] 31 gauge x 5/16 needle See Rx Instructions .ROUTE .MEDSUPPLY Qty: 100 11RF Rx Instructions: two times daily atorvastatin 40 mg tablet 40 mg PO BEDTIME diphenhydramine HCl [Benadryl] 25 mg Capsule 50 mg PO Q4H PRN (Reason: Itching) sevelamer carbonate [Renvela] 800 mg tablet 1,600 mg PO TID promethazine 25 mg tablet 25 mg PO Q6H PRN (Reason: Nausea) gabapentin 300 mg capsule 300 mg PO DAILY hydrocodone-acetaminophen 5-325 mg Tablet 0.5 tab PO Q6H PRN (Reason: Pain) hydrocodone-acetaminophen 5-325 mg Tablet 1 tab PO Q6H PRN (Reason: Pain) Renal Caps 1 mg Capsule 1 cap PO DAILY Velphoro 500 mg Tablet,Chewable 500 mg PO TID Paxlovid (EUA) 150-100 mg Tablets,Dose Pack 1 ea PO . DIRECTED albuterol sulfate 2.5 mg /3 mL (0.083 %) solution for nebulization 2.5 mg inhalation Q4H PRN (Reason: shortness of breath or wheezing) Novolog FlexPen U-100 Insulin 100 unit/mL (3 mL) insulin pen See Rx Instructions .ROUTE .COMPLEX Rx Instructions: PER SLIDING SCALE midodrine 5 mg Tablet 5 mg PO BID Rx Instructions: do not give last dose of day after 6PM or within 4 hrs of bedtime melatonin 3 mg Tablet 3 mg PO BEDTIME guaifenesin [Robitussin] 100 mg/5 mL Liquid 200 mg PO Q4H PRN (Reason: Cough) loperamide-simethicone 2-125 mg Tablet 1 tab PO Q24H PRN (Reason: Gastric Reflux) fluticasone propionate [Flonase] 50 mcg/actuation [place],Suspension 1 spray INTRANASAL BID Rx Instructions: administer into each nostril loratadine [Claritin] 10 mg Tablet 10 mg PO DAILY calcium carbonate 1,000 mg Tablet 1,000 mg PO BEDTIME bismuth subsalicylate 525 mg/15 mL Suspension 525 mg PO Q24H PRN (Reason: Diarrhea) Rx Instructions: do not exceed 8 doses in a 24 hour period Natural Balance Tears 0.1-0.3 % Drops 2 drp OPHTHALMIC (EYE) Q4H PRN (Reason: Dry Eyes) Eliquis 5 mg Tablet 5 mg PO BID Rx Instructions: ON HOLD PER PHYSICIAN Lokelma 10 gram Powder In Packet See Rx Instructions .ROUTE .COMPLEX Rx Instructions: 10 g orally Mon, Wed, Fri, Sun temazepam 15 mg capsule 7.5 mg PO BEDTIME insulin glargine [Lantus Solostar U-100 Insulin] 100 unit/mL (3 mL) insulin pen 56 unit SUBCUT BID acetaminophen [Tylenol] 325 mg Tablet 650 mg PO Q6H PRN (Reason: Pain) cholecalciferol (vitamin D3) [Vitamin D3] 25 mcg (1,000 unit) Capsule 25 mcg PO DAILY Referrals: [facility] [Outside] Allen Ackerman DO [Primary Care Provider] - Patient Instructions: Opioid Safety Transfer Attestations Time Spent in Transfer Care: greater than 30 min Status at Transfer: Cognitive status at transfer: cognitively intact; Behavioral status at transfer: cooperative; Quality Metrics Clinical Quality Measures [ No reported AMI, CVA or VTE this stay] Coding Level of Care Code 49447 Total time (in minutes) for Discharge: 50 Diagnoses End stage renal disease on dialysis N18.6; Z99.2
--- NOTE | 2022-10-05 15:21 | PC.NURSE ---
Transfer Note Patient transferred to [facility] from [facility] surge room 266 via ground ambulance. Handoff received from [facility]. Patient oriented to environment and equipment. Covering service notified. Orders reviewed and will continue to monitor. Family and/or veterans service representative notified.
[2022-10-05 16:51] LABS: Glucose Point of Care 330 mg/dL (70-110)
[2023-03-11 13:40] LABS: ABG PCO2 82.6 mmHg (35-45)
== END 2022-10-05 15:21 | disposition short-term general hospital (02) | DRG 871 ==
LOC: ER 22:55 → MEDSURG 23:29
PROVIDERS: Hospitalist; Student in an Organized Health Care Education/Training Program; Admitting Provider Internal Medicine; Emergency Provider Emergency Medicine; PCP Family Medicine; Visit Provider Internal Medicine
DX: A41.9 Sepsis, unspecified organism (principal); J12.82 Pneumonia due to coronavirus disease 2019; U07.1 COVID-19; N18.6 End stage renal disease; J96.22 Acute and chronic respiratory failure with hypercapnia; J96.21 Acute and chronic respiratory failure with hypoxia; J15.9 Unspecified bacterial pneumonia; I12.0 Hypertensive chronic kidney disease with stage 5 chronic kidney disease or end stage renal disease; I48.20 Chronic atrial fibrillation, unspecified; E87.20 Acidosis, unspecified; J44.1 Chronic obstructive pulmonary disease with (acute) exacerbation; J44.0 Chronic obstructive pulmonary disease with (acute) lower respiratory infection; Z68.41 Body mass index [BMI] 40.0-44.9, adult; E11.22 Type 2 diabetes mellitus with diabetic chronic kidney disease; Z99.2 Dependence on renal dialysis; E11.649 Type 2 diabetes mellitus with hypoglycemia without coma; E11.42 Type 2 diabetes mellitus with diabetic polyneuropathy; E11.51 Type 2 diabetes mellitus with diabetic peripheral angiopathy without gangrene; K76.82 Hepatic encephalopathy; I95.9 Hypotension, unspecified; Z79.4 Long term (current) use of insulin; Z79.891 Long term (current) use of opiate analgesic; Z66 Do not resuscitate; Z99.3 Dependence on wheelchair; K74.60 Unspecified cirrhosis of liver; D63.1 Anemia in chronic kidney disease; I25.10 Atherosclerotic heart disease of native coronary artery without angina pectoris; E78.2 Mixed hyperlipidemia; G47.33 Obstructive sleep apnea (adult) (pediatric); Z90.411 Acquired partial absence of pancreas; E66.01 Morbid (severe) obesity due to excess calories; Z86.73 Personal history of transient ischemic attack (TIA), and cerebral infarction without residual deficits
CPT/HCPCS: 12345; 36415; 36416; 36569; 36600; 70450; 71045; 71250; 74176; 80048; 80051; 80053; 80061; 80074; 82140; 82330; 82533; 82607; 82746; 82803; 82805; 82962; 83036; 83540; 83550; 83605; 83735; 84100; 84145; 84443; 84550; 85025; 85378; 86403; 87040; 87070; 87205; 87449; 87641; 90935; 93005; 94640; 94660; 96372; 96374; 99291; C1751; C9113; J1610; J1630; J1720; J1815; J2060; J2543; J3370; J3490; J7042; J7050; J7626; J8540; Q3014

== ENCOUNTER 2022-11-27 15:36 | Emergency (ER) | payer MEDICARE, MEDICAID, SELFPAY ==
[2022-11-27] VITALS (13 sets, daily range): BP systolic 80–131; BP diastolic 23–100; PULSE 61–70; RESP 14–18; TEMP 36.7; O2SAT 90–98; BMI 45.6
--- NOTE | 2022-11-27 15:48 | XRR_ITS ---
PROCEDURE INFORMATION: Exam: XR Chest Exam date and time: 11/27/2022 3:59 PM Age: 67 years old Clinical indication: Condition or disease; Other: AMS TECHNIQUE: Imaging protocol: Radiologic exam of the chest. Views: 1 view. COMPAR[place]: [place] [id number] 09/27/2022 9:52 PM FINDINGS: Lungs: Questionable right perihilar opacity. Pleural spaces: Unremarkable. No pleural effusion. No pneumothorax. Heart/Mediastinum: Mild cardiomegaly. Bones/joints: Unremarkable. XR/XR chest 1V portable [id number] IMPRESSION: Questionable right perihilar opacity.
--- NOTE | 2022-11-27 15:49 | ECG_ITS ---
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 Measurements Intervals [place] Rate: 61 P: 0 MN: 0 QRS: 11 QRSD: 85 T: 82 QT: 412 QTc: 417 Interpretive Statements ATRIAL FIBRILLATION SEPTAL MYOCARDIAL INFARCTION , OF INDETERMINATE AGE [40+ ms Q WAVE IN V1/V2] Compared to ECG 09/27/2022 20:29:58 Supraventricular rhythm no longer present Myocardial infarct finding still present Electronically Signed On 11-27-2022 20:59:34 CDT by Nadir Castaneda M.D. [id number]
--- NOTE | 2022-11-27 15:55 | ED_ITS ---
HPI - Altered Mental Status General: Chief Complaint: Altered Mental Status Stated Complaint: AMS Time Seen by Provider: 11/27/22 15:40 History of Present Illness: This patient is a 67 year old presenting by EMS from dialysis. He was sent here due to AMS. He is a resident at [facility]. He is not able to provide any history today. I spoke to a staff member at the dialysis center and she told me that the patient has been less alert over the past few days. He was lethargic during dialysis on 11/25 and was noted to hae a low hgb. He was also started on PO liquid morphine on due to complaints of abdominal pain - but he refused to go to the hospital for evaluation of the abdominal pain. He also has refused to go to the hospital for a fistulogram and has been told that his current access is not likely to be useful past about 2 weeks. Today when he got to dialysis he was lethargic, but was able to get up and stand to transfer - with some help. With about 20 minutes of dialysis left his BP dropped and he became more altered so dialysis was stopped and EMS was called. The patient's PCP is Dr. Mayfield. The patient has history of diabetes, neuropathy, he is on apixaban, presumably for a fib. Patient's provided more history once she arrived - she says that the patient has been on dialysis for 12 years and has had many episodes where she was told he wouldn't survive. He has had problems with the fistula in the left arm - was admitted at [facility] in September and had it cleaned out . He was told at that time that he had liver cirrhosis - which was the first time that had been noted. He had hepatic encephalopathy at that time. She notes that he had COVID in early september, and has not gotten back to his baseline mental status since then. She also says that he is always very confused after dialysis, but not like this, and he usually sleeps it off . She showed me his advanced directive - stating that he would NOT want to have any invasive procedures or surgery. He does not want to be intubated or have CPR. In the event of a terminal illness he would not want any interventions including no antibiotics and no dialysis. His seems to be at a point were she would consider comfort care - depending on what we can determine as the cause of this current situation. She is not opposed to a blood transfusion. His troponin came back elevated - which is difficult to interpret in a dialysis patient who was just dialyzed - but he definitely would not want a cardiac cath in the case that was felt to be necessary. [facility] ED PFSH: Medical History (Updated 11/27/22 @ 18:01 by Gabby Quick MD) Anemia Atrial fibrillation Bradycardia Calciphylaxis COPD (chronic obstructive pulmonary disease) Coronary artery disease COVID-19 CVA (cerebral vascular accident) Diabetes mellitus, with long-term current use of insulin End stage renal disease on dialysis Gout Hyperphosphatemia Hypertension Mixed dyslipidemia Neuropathy Obstructive sleep apnea Onychodystrophy PVD (peripheral vascular disease) Surgical History H/O hernia repair Ventral History of appendectomy Hx of cholecystectomy S/P removal of parathyroid gland Family History Father No problems noted. Other Cancer Diabetes Denies family history of CAD (coronary artery disease) Clotting disorder Dementia Hyperlipidemia Psychiatric illness Chronic kidney disease (CKD) Suicide Anesthesia complication Bleeding disorder Family history of premature coronary artery disease Lung disease Hypertension Stroke Social History Smoking and tobacco status: never smoked Alcohol intake: never Substance/Drug Use: never Physical Exam Narrative: Sitting up in chair. Const: EXAM LIMITATIONS: altered mental status GENERAL APPEARANCE: lethargic and other (agitated) NUTRITIONAL APPEARANCE: obese ORIENTATION/CONSCIOUSNESS: Yes lethargic HENMT: COMMON NORMALS: oropharynx normal Neck/C-Spine: COMMON NORMALS: no JVD Resp: COMMON NORMALS: normal respiratory effort and clear to auscultation bilaterally AUSCULTATION: clear to auscultation bilaterally Cardio: COMMON NORMALS: no JVD, regular rhythm, S1 normal heart sound present, S2 normal heart sound present and No murmurs present (Cardio) RHYTHM: regular rhythm HEART SOUNDS: S1 normal heart sound present and S2 normal heart sound present GI: COMMON NORMALS: Normal to inspection, nondistended, normoactive bowel sounds present, Soft to palpation and non-tender PALPATION: Yes Soft to palpation RECTAL EXAM: Yes visual inspection normal, Yes heme positive stool 1+ and Yes Excoriation present (GI) Extremity: COMMON NORMALS: no joint enlargement and no pedal edema GENERAL: Yes edema (BLLE) Neuro: CHANTEL COMA SCALE: document GCS findings Chantel coma scale eye opening: To pressure Odin coma scale verbal response: Sounds Chantel coma scale motor response: Localising Chantel coma scale total score: 9 COMMON NORMALS: moves all extremities SENSORIUM/ORIENTATION: Yes lethargic SPEECH: abnormal speech Details: garbled Skin: COMMON NORMALS: no rashes or lesions noted NARRATIVE SKIN EXAM: Bilateral LE edema GENERAL SKIN EXAM: no rashes or lesions noted OTHER: Edema, stasis dermatitis bilateral lower extremities. Course Vital Signs: Vital signs: Vital Signs Temperature 98.0 F 11/27/22 15:51 Pulse Rate 63 11/27/22 17:23 Respiratory Rate 16 11/27/22 17:23 Blood Pressure 80/31 11/27/22 17:36 Pulse Oximetry 98 11/27/22 17:36 Oxygen Delivery Me thod Room Air 11/27/22 17:23 MDM - Altered Mental Status Medical Decision Making Patient with worsening mental status over the past several day according to the dialysis staff. He has a non functioning fistula on the right, and a functioning, but tenuous fistula on the left. We will access an IV on the right, as that fistula is non functioning any way and we need IV access and lab s. Will check hgb as that has been dropping - also ammonia, cbc, cmp, lactic. Unknown if patient makes urine. No abdominal tenderness on exam currently - but AMS makes that somewhat limited in its usefulness. History per , and per the discharge summary that she brought with her from his hospitalization at [facility] in September. He has had RUQ pain and refused to go to the hospital. She notes that he has not been mentally back to baseline since he had COVID in early September. He has recently been diagnosed with liver failure in addition to his renal failure, and he is severely anemic today. Rectal exam showed faintly heme positive stool - but not grossly bloody or melenotic. His INR is elevated - he is on aspirin and apixaban. I have not ordered imaging, as it would appear that he would not want surgery even if that were indicated. I will discuss this with the hospitalist and it may be reasonable to scan head and belly to see if there is bleeding in either place just because that might help his make the decision to make him comfort care. Due to low BP and AMS in the ED - I did consider sepsis, and he had lactic, blood cultures and antibiotics started. I did not give a fluid bolus due to his ESRD. He will be getting a blood transfusion. Son came to the ED and we discussed the patient's condition. He does want to get the CTs. Dr. Fox will admit depending on the CT results. Lab Data 11/27/22 16:25 11/27/22 16:25 Radiology Impressions Chest X-Ray 11/27/22 15:48 IMPRESSION: Questionable right perihilar opacity. Laboratory Results WBC 15.7 10^3/uL (4.0-10.0) H 11/27/22 16:25 RBC 2.06 10^6/uL (4.1-5.3) L 11/27/22 16:25 Hgb 6.4 g/dL (11.7-16.6) L* 11/27/22 16:25 Hct 20.9 % (42.0-52.0) L 11/27/22 16:25 MCV 101.5 fl (80-94) H 11/27/22 16:25 MCH 31.1 pg (28.0-34.0) 11/27/22 16:25 MCHC 30.6 g/dL (30.0-36.0) 11/27/22 16:25 RDW 14.8 % (12.1-15.1) 11/27/22 16:25 Plt Count 206 10^3/cmm (130-400) 11/27/22 16:25 MPV 10.9 fL (7.4-10.4) H 11/27/22 16:25 Neut % (Auto) 82.4 % 11/27/22 16:25 Lymph % (Auto) 6.9 % 11/27/22 16:25 [place] % (Auto) 7.9 % 11/27/22 16:25 Eos % (Auto) 1.7 % 11/27/22 16:25 Baso % (Auto) 0.4 % 11/27/22 16:25 Neut # (Auto) 12.97 10^3/uL (1.8-7.7) H 11/27/22 16:25 Lymph # (Auto) 1.1 10^3/uL (0.8-4.8) 11/27/22 16:25 [place] # (Auto) 1.3 10^3/uL (0.2-0.9) H 11/27/22 16:25 Eos # (Auto) 0.3 10^3/uL (0.0-0.8) 11/27/22 16:25 Baso # (Auto) 0.1 10^3/uL (0.0-0.1) 11/27/22 16:25 Nucleated RBC % (auto) 0 % 11/27/22 16:25 Nucleated RBCs # 0.0 /100WBC 11/27/22 16:25 PT 18.10 SECONDS (12.1-14.9) H 11/27/22 16:25 INR 1.45 (0.8-1.2) H 11/27/22 16:25 Specimen Type Venous 11/27/22 17:50 Sample Site Not specified 11/27/22 17:50 Mickey Test N/a 11/27/22 17:50 VBG pCO2 26.3 mmHg (41-51) L 11/27/22 17:50 VBG pO2 147.0 mmHg (25-40) H 11/27/22 17:50 VBG HCO3 28.2 mmol/L (24-28) H 11/27/22 17:50 VBG Base Excess 6.8 mmol/L (-3.0-3.0) H 11/27/22 17:50 VBG Hematocrit 21.1 % (42-52) L 11/27/22 17:50 Clinical Statistical Programmer ID Kelby 11/27/22 17:50 Sodium 132 mmol/L (136-145) L 11/27/22 16:25 Potassium 4.1 mmol/L (3.5-5.1) 11/27/22 16:25 Chloride 89 mmol/L (98-107) L 11/27/22 16:25 Carbon Dioxide 30 mmol/L (22-29) H 11/27/22 16:25 Anion Gap 17.1 (5-19) 11/27/22 16:25 BUN 31 mg/dL (8-23) H 11/27/22 16:25 Creatinine 3.7 mg/dL (0.7-1.2) H 11/27/22 16:25 GFR Calculation 16.4 mL/min (90-130) L 11/27/22 16:25 Glucose 167 mg/dL (65-115) H 11/27/22 16:25 Calculated Osmolality 284 mOsm/kg (285-295) L 11/27/22 16:25 Lactic Acid 2.5 mmol/L (0.5-2.2) H 11/27/22 16:25 Lactic Acid (Sepsis) 2.0 mmol/L (0.5-2.2) 11/27/22 17:50 Calcium 9.0 mg/dL (8.5-10.5) 11/27/22 16:25 Magnesium 1.8 mg/dL (1.7-2.3) 11/27/22 16:25 Total Bilirubin 0.3 mg/dL (0.15-1.2) 11/27/22 16:25 AST 8 U/L (0-40) 11/27/22 16:25 ALT 6 U/L (0-41) 11/27/22 16:25 Alkaline Phosphatase 94 U/L (40-130) 11/27/22 16:25 Ammonia 20 umol/L (16-60) 11/27/22 16:25 Troponin T Baseline 258 ng/L (0-15) H* 11/27/22 16:25 NT-Pro-B Natriuret Pep 08776 pg/mL (0-125) H 11/27/22 16:25 Total Protein 7.4 g/dL (6.6-8.7) 11/27/22 16:25 Albumin 3.6 g/dL (3.5-5.2) 11/27/22 16:25 Globulin 3.8 g/dL (1.3-4.6) 11/27/22 16:25 Lipase 9 U/L (13-60) L 11/27/22 16:25 Ethyl Alcohol < 10 mg/dL (0-10) 11/27/22 16:25 Blood Type O Negative 11/27/22 16:25 Rho(D) Type Negative 11/27/22 16:25 Antibody Screen Negative 11/27/22 16:25 Crossmatch See Detail 11/27/22 16:25 Discharge Plan Discharge Patient Disposition: Admitted As Inpatient Clinical Impression: Acute anemia, Goals of care, counseling/discussion, Diabetes mellitus, type II, ESRD on hemodialysis, Elevated troponin, Acute on chronic alteration in mental status, Cirrhosis, Elevated INR, Anticoagulated by anticoagulation treatment Condition: Stable Coding Level of Care Code ED Safety Glass Installer for Elizabeth Correa
--- NOTE | 2022-11-27 16:21 | PC.PHAR ---
Addendum entered by Gracia López 11/27/22 16:49: Was able to contact [facility], but the list does not match [facility]. [facility] stated they would fax med list. Med list has not been received. Original Note: [facility] would not answer phone calls- list verified by Ester
[2022-11-27 16:58] LABS: Basophils # 0.1 10^3/uL (0.0-0.1); Basophils % 0.4 %; Eosinophils # 0.3 10^3/uL (0.0-0.8); Eosinophils % 1.7 %; Hematocrit 20.9 % (42.0-52.0); Lymphocytes # 1.1 10^3/uL (0.8-4.8); Lymphocytes % 6.9 %; Mean Corpuscular HGB Conc 30.6 g/dL (30.0-36.0); Mean Corpuscular Hemoglobin 31.1 pg (28.0-34.0); Mean Corpuscular Volume 101.5 fl (80-94); Mean Platelet Volume 10.9 fL (7.4-10.4); Monocytes # 1.3 10^3/uL (0.2-0.9); Monocytes % 7.9 %; Neutrophils # 12.97 10^3/uL (1.8-7.7); Neutrophils % 82.4 %; Nucleated Red Blood Cells % 0 %; Platelet Count 206 10^3/cmm (130-400); Red Blood Count 2.06 10^6/uL (4.1-5.3); Red Cell Distribution Width 14.8 % (12.1-15.1); White Blood Count 15.7 10^3/uL (4.0-10.0)
--- NOTE | 2022-11-27 16:59 | PC.NURSE ---
Dr Quick advised to attempt an ultrasound IV in patient's right AC for IV access for medications and blood draw.
[2022-11-27 17:01] LABS: Hemoglobin 6.4 g/dL (11.7-16.6)
[2022-11-27 17:07] LABS: INR 1.45 (0.8-1.2)
[2022-11-27] MEDS: piperacillin-tazobactam 3.375 GM in sodium chloride 0.9% (plus) 50 ML IV (17:14)
[2022-11-27 17:19] LABS: Lactic Sepsis W/Reflex 2.5 mmol/L (0.5-2.2)
[2022-11-27 17:29] LABS: Alanine Aminotransferase 6 U/L (0-41); Albumin Level 3.6 g/dL (3.5-5.2); Alcohol Level < 10 mg/dL (0-10); Alkaline Phosphatase 94 U/L (40-130); Ammonia 20 umol/L (16-60); Anion Gap 17.1 (5-19); Aspartate Amino Transferase 8 U/L (0-40); Blood Urea Nitrogen 31 mg/dL (8-23); Carbon Dioxide 30 mmol/L (22-29); Chloride 89 mmol/L (98-107); Globulin 3.8 g/dL (1.3-4.6); Glomerular Filtration Rate 16.4 mL/min (90-130); Glucose 167 mg/dL (65-115); Lipase 9 U/L (13-60); Magnesium 1.8 mg/dL (1.7-2.3); NT Pro B Type Natriuretic Pept 22481 pg/mL (0-125); Osmolality Calculated 284 mOsm/kg (285-295); Potassium 4.1 mmol/L (3.5-5.1); Sodium 132 mmol/L (136-145); Total Bilirubin 0.3 mg/dL (0.15-1.2); Total Protein 7.4 g/dL (6.6-8.7); Troponin(5th) Baseline 258 ng/L (0-15)
[2022-11-27 17:42] LABS: Reflex Lactate Order REFLEX LACTIC ORDERD
--- NOTE | 2022-11-27 17:49 | ECG_ITS ---
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 Measurements Intervals [place] Rate: 63 P: 0 RI: 0 QRS: 16 QRSD: 86 T: 90 QT: 425 QTc: 436 Interpretive Statements SINUS RHYTHM WITH HIGH GRADE AV BLOCK SEPTAL MYOCARDIAL INFARCTION , PROBABLY OLD [40+ ms Q WAVE IN V1/V2] Compared to ECG 11/27/2022 15:55:53 Atrial fibrillation no longer present Myocardial infarct finding still present Electronically Signed On 11-27-2022 21:05:05 CDT by Nadir Castaneda M.D. [id number]
[2022-11-27] MEDS: vancomycin 2,000 MG/400 ML PIGGYBACK 233.33 MG IV (17:54)
--- NOTE | 2022-11-27 18:10 | CTR_ITS ---
PROCEDURE INFORMATION: Exam: CT Head Without Contrast Exam date and time: 11/27/2022 6:24 PM Age: 67 years old Clinical indication: Altered mental status/memory loss; Confusion or disorientation; Additional info: AMS TECHNIQUE: Imaging protocol: Computed tomography of the head without contrast. Radiation optimization: All CT scans at this facility use at least one of these dose optimization techniques: automated exposure control; mA and/or kV adjustment per patient size (includes targeted exams where dose is matched to clinical indication); or iterative reconstruction. REPORTING DATA: Count of CT and Cardiac NM exams in prior 12 months: This patient has received 3 known CTs and 0 known cardiac nuclear medicine studies in the 12 months prior to the current study. COMPARISON: CT head wo con* [id number] 09/27/2022 9:50 PM RADIATION DOSE METRICS: Total DLP (mGy-cm): 935.56 FINDINGS: Brain: Moderate diffuse white matter disease likely reflecting chronic microvascular ischemic changes. Bilateral basal ganglia chronic lacunar infarct. Cerebral ventricles: No ventriculomegaly. Paranasal sinuses: Visualized sinuses are unremarkable. No fluid levels. Mastoid air cells: Visualized mastoid air cells are well aerated. Bones/joints: Unremarkable. No acute fracture. Soft tissues: Unremarkable. CT/CT head wo con* [id number] IMPRESSION: 1. Negative for intracranial hemorrhage or mass effect. 2. Moderate diffuse white matter disease likely reflecting chronic microvascular ischemic changes. 3. Bilateral basal ganglia chronic lacunar infarct.
[2022-11-27 18:15] LABS: Base Excess VBG 6.8 mmol/L (-3.0-3.0); Blood Gas Sample Site Not specified; Blood Gas Sample Type Venous; HCO3 VBG 28.2 mmol/L (24-28); PCO2 VBG 26.3 mmHg (41-51); Venous Blood Gas Hematocrit 21.1 % (42-52)
--- NOTE | 2022-11-27 18:15 | CTR_ITS ---
PROCEDURE INFORMATION: Exam: CT Chest Without Contrast; Diagnostic Exam date and time: 11/27/2022 6:27 PM Age: 67 years old Clinical indication: Abdominal pain; Generalized; Chest pressure; Prior surgery; Surgery date: 6+ months; Surgery type: Gb, hernia, appy; Additional info: AMS, anemia TECHNIQUE: Imaging protocol: Diagnostic computed tomography of the chest without contrast. Radiation optimization: All CT scans at this facility use at least one of these dose optimization techniques: automated exposure control; mA and/or kV adjustment per patient size (includes targeted exams where dose is matched to clinical indication); or iterative reconstruction. REPORTING DATA: Count of CT and Cardiac NM exams in prior 12 months: This patient has received 3 known CTs and 0 known cardiac nuclear medicine studies in the 12 months prior to the current study. COMPARISON: [place] [id number] 09/27/2022 9:52 PM RADIATION DOSE METRICS: Total DLP (mGy-cm): 1060.1 FINDINGS: Lungs: Right lower lobe subsegmental atelectasis versus infiltrate. Right upper lobe subsegmental airspace opacities, similar to prior exam suggestive of pleuroparenchymal fibrosis. Pleural spaces: Unremarkable. No pneumothorax. No pleural effusion. Heart: Cardiomegaly. Coronary arteries: Coronary artery atherosclerotic calcifications. Lymph nodes: Several prominent mediastinal lymph nodes measuring up to 17 mm, nonspecific. Vasculature: Ascending thoracic aorta is prominent 3.7 cm. Bones/joints: Somewhat diffuse sclerosis of the osseous structures likely related to underlying renal disease, please correlate for possible diffuse metastatic disease, whole body nuclear medicine bone scan could further characterize this. Soft tissues: Unremarkable. PROCEDURE INFORMATION: Exam: CT Abdomen And Pelvis Without Contrast Exam date and time: 11/27/2022 6:27 PM Age: 67 years old Clinical indication: Abdominal pain; Generalized; Chest pressure; Prior surgery; Surgery date: 6+ months; Surgery type: Gb, hernia, appy; Additional info: AMS, anemia TECHNIQUE: Imaging protocol: Computed tomography of the abdomen and pelvis without contrast. Radiation optimization: All CT scans at this facility use at least one of these dose optimization techniques: automated exposure control; mA and/or kV adjustment per patient size (includes targeted exams where dose is matched to clinical indication); or iterative reconstruction. REPORTING DATA: Count of CT and Cardiac NM exams in prior 12 months: This patient has received 3 known CTs and 0 known cardiac nuclear medicine studies in the 12 months prior to the current study. COMPARISON: [place] [id number] 09/27/2022 9:52 PM RADIATION DOSE METRICS: Total DLP (mGy-cm): 1060.1 FINDINGS: Liver: Normal. No mass. Gallbladder and bile ducts: Normal. No calcified stones. No ductal dilation. Pancreas: Normal. No ductal dilation. Spleen: Normal. No splenomegaly. Adrenal glands: Normal. No mass. Kidneys and ureters: Normal. No hydronephrosis. Stomach and bowel: Constipation. Appendix: No evidence of appendicitis. Intraperitoneal space: Unremarkable. No free air. No significant fluid collection. Vasculature: Large amount of atherosclerotic calcification at the origin of the celiac, superior mesenteric and bilateral renal arteries with suspected 80-90% luminal narrowing, a CT with intravenous contrast could further characterize this. Lymph nodes: Unremarkable. No enlarged lymph nodes. Urinary bladder: Unremarkable as visualized. Reproductive: Unremarkable as visualized. Bones/joints: Somewhat diffuse sclerosis of the osseous structures likely related to underlying renal disease, please correlate for possible diffuse metastatic disease, whole body nuclear medicine bone scan could further characterize this. Soft tissues: Anterior abdominal wall surgical mesh. Other findings: Right-sided subcapsular hematoma measuring up to at least 2.8 cm in thickness along with blood products seen in the perinephric fat. CT/[facility] [id number] IMPRESSION: 1. Right lower lobe subsegmental atelectasis versus infiltrate. 2. Right upper lobe subsegmental airspace opacities, similar to prior exam suggestive of pleuroparenchymal fibrosis. 3. Several prominent mediastinal lymph nodes measuring up to 17 mm, nonspecific. 4. Ascending thoracic aorta is prominent 3.7 cm. 5. Cardiomegaly. 6. Coronary artery atherosclerotic calcifications. 7. Somewhat diffuse sclerosis of the osseous structures likely related to underlying renal disease, please correlate for possible diffuse metastatic disease, whole body nuclear medicine bone scan could further characterize this. IMPRESSION: 1. Right-sided subcapsular hematoma measuring up to at least 2.8 cm in thickness along with blood products seen in the perinephric fat. 2. Anterior abdominal wall surgical mesh. 3. Constipation. 4. Somewhat diffuse sclerosis of the osseous structures likely related to underlying renal disease, please correlate for possible diffuse metastatic disease, whole body nuclear medicine bone scan could further characterize this. 5. Large amount of atherosclerotic calcification at the origin of the celiac, superior mesenteric and bilateral renal arteries with suspected 80-90% luminal narrowing, a CT with intravenous contrast could further characterize this.
[2022-11-27 18:22] LABS: Troponin 5 2HR 252.3 ng/L (0-15); Troponin 5 2HR Delta -5.7 ABS# (0-10)
--- NOTE | 2022-11-27 19:00 | PC.NURSE ---
Report received from Shaylee ALVA. Pt resting in bed and denies needs. Pt Vanc still running, blood ready, unable to obtain second line. Will start blood when vanc infusion finished.
--- NOTE | 2022-11-27 19:07 | PC.NURSE ---
RN spoke with son at bedside, son said they don't think they need a sitter right now they think they can handle it and would let us know if they need us. Charge nurse notified.
--- NOTE | 2022-11-27 19:45 | PC.NURSE ---
RN at bedside to flush IV. Pt stated I don't think I want him to have blood. I just want to take him home. This RN told the family she would give time to discuss the decision and inform us of it. notified.
--- NOTE | 2022-11-27 19:50 | PC.NURSE ---
Pt family notified nurse that they did not want anything done and pt taken back to [facility]. MD notified. Transport being arranged.
[2022-11-27] MEDS: morphine 4 mg/mL SDV 1 mL 2 MG IVP (20:56)
[2022-11-27] MEDS: ondansetron 2 mg/ML SDV 2 mL 4 MG IVP (20:57)
[2022-11-27] MEDS: LORazepam 2 mg/mL INJ 1 mL 0.5 MG IVP (21:08)
[2022-11-28 11:07] LABS: Bacillus cereus group Not Detected (NOT DETECT); Bacillus subtillis group Not Detected (NOT DETECT); Corynebacterium Not Detected (NOT DETECT); Cutibacterium acnes (P.acnes) Not Detected (NOT DETECT); Enterococcus Not Detected (NOT DETECT); Enterococcus faecalis Not Detected (NOT DETECT); Enterococcus faecium Not Detected (NOT DETECT); Lactobacillus species Not Detected (NOT DETECT); Listeria Not Detected (NOT DETECT); Listeria monocytogenes Not Detected (NOT DETECT); Micrococcus Not Detected (NOT DETECT); Pan Candida Not Detected (NOT DETECT); Pan Gram-Negative Not Detected (NOT DETECT); Staphylococcus epidermidis Not Detected (NOT DETECT); Staphylococcus lugdunensis Not Detected (NOT DETECT); Staphylococcus species Detected (NOT DETECT); Streptococcus agalactiae Not Detected (NOT DETECT); Streptococcus anginosus group Not Detected (NOT DETECT); Streptococcus pneumoniae Not Detected (NOT DETECT); Streptococcus pyogenes Not Detected (NOT DETECT); Streptococcus species Not Detected (NOT DETECT); mecA Detected (NOT DETECT); mecC Not Detected (NOT DETECT)
[2022-11-30 11:15] LABS: pH VBG 7.64 (7.32-7.42)
== END 2022-11-28 00:42 | disposition home or self-care (01) ==
PROVIDERS: Emergency Medicine; Emergency Provider Emergency Medicine; PCP Family Medicine
DX: R41.82 Altered mental status, unspecified (principal); I12.0 Hypertensive chronic kidney disease with stage 5 chronic kidney disease or end stage renal disease; E11.22 Type 2 diabetes mellitus with diabetic chronic kidney disease; N18.6 End stage renal disease; Z99.2 Dependence on renal dialysis; Z79.4 Long term (current) use of insulin; D64.9 Anemia, unspecified; R77.8 Other specified abnormalities of plasma proteins; K74.60 Unspecified cirrhosis of liver; R79.1 Abnormal coagulation profile; Z79.01 Long term (current) use of anticoagulants
CPT/HCPCS: 36415; 70450; 71045; 71250; 74176; 80053; 80307; 82140; 82803; 83605; 83690; 83735; 83880; 84484; 85025; 85610; 86850; 86900; 86920; 87040; 87150; 87205; 93005; 96365; 96366; 96367; 96375; 99285; J2060; J2270; J2405; J2543; J3372